=== PATIENT | female | born 1935 | race Caucasian/White ===

== ENCOUNTER 2018-09-25 12:24 | Inpatient (IN) | payer MEDICARE ==
[~2018-09-25] VITALS: Ht 147.3 cm; Wt 73.1 kg
[2018-09-25 13:13] LABS: BASO % 1 % (0-3); EOS # 0.2 x10^3/uL (0.0-0.7); EOS % 3 % (0-3); HEMATOCRIT 47.8 % (36.0-47.0); HEMOGLOBIN 15.7 g/dL (12.0-15.5); LYMPH # 1.2 x10^3/uL (1.0-4.8); LYMPH % 18 % (24-48); MEAN CORPUSCULAR HEMOGLOBIN 29 pg (25-35); MEAN CORPUSCULAR HGB CONC 33 g/dL (31-37); MEAN CORPUSCULAR VOLUME 89 fL (79-100); MONO % 14 % (0-9); NEUT # 4.6 x10^3uL (1.8-7.7); NEUT % 66 % (31-73); PLATELET COUNT 243 x10^3/uL (140-400); RED BLOOD COUNT 5.38 x10^6/uL (3.50-5.40); RED CELL DISTRIBUTION WIDTH 16.4 % (11.5-14.5)
[2018-09-25 13:15] LABS: ALBUMIN/GLOBULIN RATIO 0.8 (1.0-1.7); CALCIUM 8.9 mg/dL (8.5-10.1); CREATININE 0.9 mg/dL (0.6-1.0); GFR 59.8; MAGNESIUM 2.1 mg/dL (1.8-2.4); TOTAL BILIRUBIN 0.6 mg/dL (0.2-1.0); TOTAL PROTEIN 6.8 g/dL (6.4-8.2)
[2018-09-25 14:18] LABS: BACTERIA,URINE FEW /HPF (0-FEW); BILIRUBIN,URINE NEG (NEG); CLARITY,URINE HAZY; COLOR,URINE YELLOW; GLUCOSE,URINE NEG (NEG); NITRITE,URINE NEG (NEG); SQUAMOUS EPITHELIAL CELL,UR OCC /LPF; UROBILINOGEN,URINE 0.2 mg/dL (0.2 mg/dL)
--- NOTE | 2018-09-25 14:28 | PHYS DOC ---
Past History Past Medical History: Arthritis, Depression, Hypothyroid Past Surgical History: No Surgical History Alcohol Use: None Drug Use: None Adult General Chief Complaint Chief Complaint: PSYCH EVALUATION [facility] HPI Patient is a 82 year old female resident of [facility] brought in by EMS for medical clearance for psychiatric admission. [facility] reported patient had aggressive behavior. Patient is alert and oriented and denied any problem. Review of Systems Review of Systems Constitutional: Denies fever or chills [] Eyes: Denies change in visual acuity, redness, or eye pain [] HENT: Denies nasal congestion or sore throat [] Respiratory: Denies cough or shortness of breath [] Cardiovascular: No additional information not addressed in HPI [] GI: Denies abdominal pain, nausea, vomiting, bloody stools or diarrhea [] : Denies dysuria or hematuria [] Musculoskeletal: Denies back pain or joint pain [] Integument: Denies rash or skin lesions [] Neurologic: Denies headache, focal weakness or sensory changes [] Endocrine: Denies polyuria or polydipsia [] All other systems were reviewed and found to be within normal limits, except as documented in this note. Allergies Allergies Allergies Coded Allergies Type Severity Reaction Last Updated Verified Sulfa (Sulfonamide Antibiotics) Allergy Intermediate 09/25/18 Yes shrimp Allergy Intermediate 09/25/18 Yes tetanus toxoid, adsorbed Allergy Intermediate 09/25/18 Yes Physical Exam Physical Exam Constitutional: Well developed, well nourished, no acute distress, non-toxic appearance. [] HENT: Normocephalic, atraumatic Eyes: PERRLA, EOMI, conjunctiva normal, no discharge. [] Neck: Normal range of motion, no tenderness, supple, no stridor. [] Cardiovascular:Heart rate regular rhythm, no murmur [] Lungs & Thorax: Bilateral breath sounds clear to auscultation [] Abdomen: Bowel sounds normal, soft, no tenderness, no masses, no pulsatile masses. [] Skin: Warm, dry, no erythema, no rash. [] Back: No tenderness, no CVA tenderness. [] Extremities: No tenderness, no cyanosis, no clubbing, ROM intact, no edema. [] Neurologic: Alert and oriented X 3, normal motor function, normal sensory function, no focal deficits noted. [] Psychologic: Affect normal, judgement normal, mood normal. [] Current Patient Data Vital Signs Vital Signs Date Time Temp Pulse Resp B/P (MAP) Pulse Ox O2 Delivery O2 Flow Rate FiO2 09/25/18 12:47 97.8 77 22 96 Room Air Lab Results Laboratory Tests Test 09/25/18 12:48 09/25/18 13:50 White Blood Count 7.0 x10^3/uL (4.0-11.0) Red Blood Count 5.38 x10^6/uL (3.50-5.40) Hemoglobin 15.7 g/dL (12.0-15.5) H Hematocrit 47.8 % (36.0-47.0) H Mean Corpuscular Volume 89 fL (79-100) Mean Corpuscular Hemoglobin 29 pg (25-35) Mean Corpuscular Hemoglobin Concent 33 g/dL (31-37) Red Cell Distribution Width 16.4 % (11.5-14.5) H Platelet Count 243 x10^3/uL (140-400) Neutrophils (%) (Auto) 66 % (31-73) Lymphocytes (%) (Auto) 18 % (24-48) L Monocytes (%) (Auto) 14 % (0-9) H Eosinophils (%) (Auto) 3 % (0-3) Basophils (%) (Auto) 1 % (0-3) Neutrophils # (Auto) 4.6 x10^3uL (1.8-7.7) Lymphocytes # (Auto) 1.2 x10^3/uL (1.0-4.8) Monocytes # (Auto) 1.0 x10^3/uL (0.0-1.1) Eosinophils # (Auto) 0.2 x10^3/uL (0.0-0.7) Basophils # (Auto) 0.0 x10^3/uL (0.0-0.2) Sodium Level 142 mmol/L (136-145) Potassium Level 4.0 mmol/L (3.5-5.1) Chloride Level 103 mmol/L (98-107) Carbon Dioxide Level 29 mmol/L (21-32) Anion Gap 10 (6-14) Blood Urea Nitrogen 16 mg/dL (7-20) Creatinine 0.9 mg/dL (0.6-1.0) Estimated GFR (Cockcroft-Gault) 59.8 BUN/Creatinine Ratio 18 (6-20) Glucose Level 98 mg/dL (70-99) Calcium Level 8.9 mg/dL (8.5-10.1) Magnesium Level 2.1 mg/dL (1.8-2.4) Total Bilirubin 0.6 mg/dL (0.2-1.0) Aspartate Amino Transferase (AST) 18 U/L (15-37) Alanine Aminotransferase (ALT) 18 U/L (14-59) Alkaline Phosphatase 79 U/L (46-116) Total Protein 6.8 g/dL (6.4-8.2) Albumin 3.0 g/dL (3.4-5.0) L Albumin/Globulin Ratio 0.8 (1.0-1.7) L Urine Collection Type U cath Urine Color Yellow Urine Clarity Hazy Urine pH 7.5 Urine Specific [place] 1.010 Urine Protein Neg (NEG-TRACE) Urine Glucose (UA) Neg mg/dL (NEG) Urine Ketones (Stick) Neg mg/dL (NEG) Urine Blood Large (NEG) Urine Nitrite Neg (NEG) Urine Bilirubin Neg (NEG) Urine Urobilinogen Dipstick 0.2 mg/dL (0.2 mg/dL) Urine Leukocyte Esterase Trace (NEG) Urine RBC 11-20 /HPF (0-2) Urine WBC 1-4 /HPF (0-4) Urine Squamous Epithelial Cells Occ /LPF Urine Transitional Epithelial Cells Occ /LPF Urine Bacteria Few /HPF (0-FEW) Urine Mucus Slight /LPF EKG EKG EKG interpreted by me. EKG at 1238 showed normal sinus rhythm at rate of 73, normal interval and axis, poor R-wave progress in anteroseptal leads, no acute ST and T-wave abnormalities. Radiology/Procedures Radiology/Procedures [] Course & Med Decision Making Course & Med Decision Making Pertinent Labs reviewed. (See chart for details) Evaluation of patient in ER showed 81-year-old female patient brought in for medical clearance for psychiatric admission. Patient was alert and oriented and calm and cooperative while she was in ER. Patient was medically cleared for admission to Senior behavioral unit. Dragon Disclaimer Dragon Disclaimer This electronic medical record was generated, in whole or in part, using a voice recognition dictation system. Departure Departure: Impression: Primary Impression: Medical clearance for psychiatric admission Disposition: ADMITTED INPATIENT (to senior behavioral unit at 1427) Condition: STABLE Referrals: JIGAR FATIMA (PCP) JARAD PAYNE MD Sep 25, 2018 14:28
[2018-09-25 15:49] VITALS: BP 183/91
--- NOTE | 2018-09-25 16:04 | EKG ---
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
[2018-09-25] MEDS ORDERED: METHYL SALICYLATE/MENTHOL TOPICAL OINTMENT 29GM TUBE. TP PRN (16:15)
[2018-09-25] MEDS ORDERED: ACETAMINOPHEN 325 MG TABLET PO PRN (16:15)
[2018-09-25] MEDS ORDERED: MAGNESIUM HYDROXIDE 2,400 MG/30 ML ORAL.SUSP. PO PRN (16:15)
[2018-09-25] MEDS ORDERED: MAG HYDROX/AL HYDROX/SIMETH 30 ML ORAL.SUSP PO PRN (16:15)
[2018-09-25 17:24] LABS: VAL ACID 35 mcg/mL (50-100)
[2018-09-25] MEDS ORDERED: DICL100G18 TP (22:21)
[2018-09-25] MEDS ORDERED: OXYB10TA7 PO (22:21)
[2018-09-25] MEDS ORDERED: DOCU-109 PO (22:21)
[2018-09-25] MEDS ORDERED: ATOR20TA58 PO (22:21)
[2018-09-25] MEDS ORDERED: LOPE2CAP PO (22:21)
[2018-09-25] MEDS ORDERED: GUAI600T47 PO (22:21)
[2018-09-25] MEDS ORDERED: SODI500S4 PO (22:21)
[2018-09-25] MEDS ORDERED: CHOL500016 PO (22:21)
[2018-09-25] MEDS ORDERED: ACET325T9 PO (22:21)
[2018-09-25] MEDS ORDERED: ONDA4TAB12 PO (22:21)
[2018-09-25] MEDS ORDERED: TRAM50TA PO (22:21)
[2018-09-25] MEDS ORDERED: DIVA500T4 PO (22:21)
[2018-09-25] MEDS ORDERED: ALBU2.5V8 IH ×2 (22:21)
[2018-09-25] MEDS ORDERED: DEXT20TA2 PO (22:21)
[2018-09-25] MEDS ORDERED: LEVO100T5 PO (22:21)
[2018-09-25] MEDS ORDERED: VENL75CA6 PO (22:21)
[2018-09-25] MEDS ORDERED: VENL150C6 PO (22:21)
[2018-09-25] MEDS ORDERED: CYCL1DRO EACHEYE (22:21)
[2018-09-25] MEDS ORDERED: ASPI-630 PO (22:21)
[2018-09-25] MEDS ORDERED: NITR0.4T SL (22:21)
[2018-09-25] MEDS ORDERED: PANT20TA58 PO (22:21)
[2018-09-25] MEDS ORDERED: MULT-503 PO (22:21)
[2018-09-25] MEDS ORDERED: ZINC57OI TP (22:21)
[2018-09-25] MEDS ORDERED: CETI10TA16 PO (22:21)
[2018-09-25] MEDS ORDERED: ALBUTEROL SULFATE 8GM INHALER. IH PRN (22:30)
[2018-09-25] MEDS ORDERED: NITROGLYCERIN SUBLINGUAL 0.4 MG BOTTLE OF 25. SL PRN (22:30)
--- NOTE | 2018-09-25 22:40 | PDOC ---
Exam Note: Lm Note: Please also refer to the separate dictated note~for this date of service dictated separately. Discussed the patient with Nursing staff reviewed the chart.~Reviewed interim history and current functioning. Reviewed vital signs,~ Labs/ Radiology~and current medications noted below. Continue current treatment with the changes noted in the dictated addendum note Assessment: Vital Signs: Vital Signs Date Time Temp Pulse Resp B/P (MAP) Pulse Ox O2 Delivery O2 Flow Rate FiO2 09/25/18 15:49 97.4 75 20 183/91 (121) 94 Room Air Labs: Laboratory Tests Test 09/25/18 12:40 09/25/18 12:48 09/25/18 13:50 Valproic Acid Level 35 mcg/mL (50-100) L Valproic Acid Last Dose Date 09/24/18 Valproic Acid Last Dose Time 1800 White Blood Count 7.0 x10^3/uL (4.0-11.0) Red Blood Count 5.38 x10^6/uL (3.50-5.40) Hemoglobin 15.7 g/dL (12.0-15.5) H Hematocrit 47.8 % (36.0-47.0) H Mean Corpuscular Volume 89 fL (79-100) Mean Corpuscular Hemoglobin 29 pg (25-35) Mean Corpuscular Hemoglobin Concent 33 g/dL (31-37) Red Cell Distribution Width 16.4 % (11.5-14.5) H Platelet Count 243 x10^3/uL (140-400) Neutrophils (%) (Auto) 66 % (31-73) Lymphocytes (%) (Auto) 18 % (24-48) L Monocytes (%) (Auto) 14 % (0-9) H Eosinophils (%) (Auto) 3 % (0-3) Basophils (%) (Auto) 1 % (0-3) Neutrophils # (Auto) 4.6 x10^3uL (1.8-7.7) Lymphocytes # (Auto) 1.2 x10^3/uL (1.0-4.8) Monocytes # (Auto) 1.0 x10^3/uL (0.0-1.1) Eosinophils # (Auto) 0.2 x10^3/uL (0.0-0.7) Basophils # (Auto) 0.0 x10^3/uL (0.0-0.2) Sodium Level 142 mmol/L (136-145) Potassium Level 4.0 mmol/L (3.5-5.1) Chloride Level 103 mmol/L (98-107) Carbon Dioxide Level 29 mmol/L (21-32) Anion Gap 10 (6-14) Blood Urea Nitrogen 16 mg/dL (7-20) Creatinine 0.9 mg/dL (0.6-1.0) Estimated GFR (Cockcroft-Gault) 59.8 BUN/Creatinine Ratio 18 (6-20) Glucose Level 98 mg/dL (70-99) Calcium Level 8.9 mg/dL (8.5-10.1) Magnesium Level 2.1 mg/dL (1.8-2.4) Total Bilirubin 0.6 mg/dL (0.2-1.0) Aspartate Amino Transferase (AST) 18 U/L (15-37) Alanine Aminotransferase (ALT) 18 U/L (14-59) Alkaline Phosphatase 79 U/L (46-116) Total Protein 6.8 g/dL (6.4-8.2) Albumin 3.0 g/dL (3.4-5.0) L Albumin/Globulin Ratio 0.8 (1.0-1.7) L Urine Collection Type U cath Urine Color Yellow Urine Clarity Hazy Urine pH 7.5 Urine Specific [place] 1.010 Urine Protein Neg (NEG-TRACE) Urine Glucose (UA) Neg mg/dL (NEG) Urine Ketones (Stick) Neg mg/dL (NEG) Urine Blood Large (NEG) Urine Nitrite Neg (NEG) Urine Bilirubin Neg (NEG) Urine Urobilinogen Dipstick 0.2 mg/dL (0.2 mg/dL) Urine Leukocyte Esterase Trace (NEG) Urine RBC 11-20 /HPF (0-2) Urine WBC 1-4 /HPF (0-4) Urine Squamous Epithelial Cells Occ /LPF Urine Transitional Epithelial Cells Occ /LPF Urine Bacteria Few /HPF (0-FEW) Urine Mucus Slight /LPF Current Medications: Meds: Current Medications Acetaminophen (Tylenol) 650 mg PRN Q6HRS PRN PO PAIN / TEMP; Start 09/25/18 at 16:15 Multi-Ingredient Ointment (Analgesic [place]) 1 mike PRN QID PRN TP MUSCLE PAIN; Start 09/25/18 at 16:15 Al Hydroxide/Mg Hydroxide (Mylanta Plus Xs) 15 ml PRN AFTMEALHC PRN PO DYSPEPSIA; Start 09/25/18 at 16:15 Magnesium Hydroxide (Milk Of Magnesia) 2,400 mg PRN QHS PRN PO CONSTIPATION; Start 09/25/18 at 16:15 Albuterol Sulfate (Ventolin Hfa Inhaler) 2 puff BID IH ; Start 09/26/18 at 09:00 ; Status UNV Albuterol Sulfate (Ventolin Hfa Inhaler) 2 puff PRN Q4HRS PRN IH FOR ASTHMA; Start 09/25/18 at 22:30; Status UNV Atorvastatin Calcium (Lipitor) 20 mg QHS PO ; Start 09/26/18 at 21:00; Status UNV Cyclosporine (Restasis) 1 drop BID OU ; Start 09/26/18 at 09:00; Status UNV Diclofenac Sodium (Voltaren) 1 mike TID TP ; Start 09/26/18 at 09:00; Status UNV Guaifenesin (Mucinex Er) 600 mg PRN BID PRN PO COUGH; Start 09/25/18 at 22:30; Status UNV Levothyroxine Sodium (Synthroid) 100 mcg DAILYAC PO ; Start 09/26/18 at 07:30; Status UNV Nitroglycerin (Nitrostat) 0.4 mg PRN Q5MIN PRN SL CHEST PAIN; Start 09/25/18 at 22:30; Status UNV Tramadol HCl (Ultram) 50 mg PRN Q6HRS PRN PO PAIN; Start 09/25/18 at 22:30; Status UNV Non-Formulary Medication (Aspirin ) 81 mg DAILY PO ; Start 09/26/18 at 09:00; Status UNV Non-Formulary Medication (Cetirizine Hcl ) 5 mg HS PO ; Start 09/26/18 at 21:00 ; Status UNV Non-Formulary Medication (Cholecalciferol (Vitamin D3) (Vitamin D3)) 5,000 unit DAILY PO ; Start 09/26/18 at 09:00; Status UNV Non-Formulary Medication (Docusate Sodium (Colace)) 100 mg PRN DAILY PRN PO CONSTIPATION; Start 09/25/18 at 22:30; Status UNV Non-Formulary Medication (Loperamide Hcl (Loperamide)) 2 mg PRN QID PRN PO DIARRHEA; Start 09/25/18 at 22:30; Status UNV Non-Formulary Medication (Multivits,Th W-Fe,Other Min (Thera-M)) 1 tab DAILY PO ; Start 09/26/18 at 09:00; Status UNV Non-Formulary Medication (Ondansetron (Ondansetron Odt)) 4 mg PRN Q6HRS PRN PO NAUSEA/VOMITING; Start 09/25/18 at 22:30; Status UNV Non-Formulary Medication (Oxybutynin Chloride (Ditropan Xl)) 10 mg DAILY PO ; Start 09/26/18 at 09:00; Status UNV Non-Formulary Medication (Pantoprazole Sodium (Protonix)) 20 mg DAILY PO ; Start 09/26/18 at 09:00; Status UNV Non-Formulary Medication (Zinc Oxide ) 1 mike PRN BID PRN TP RASH; Start at 22:30; Status UNV Non-Formulary Medication (Dextroamphetamine/ Amphetamine (Adderall 20 Mg Tablet) ) 20 mg TID PO ; Start 09/26/18 at 09:00; Status UNV Non-Formulary Medication (Divalproex Sodium (Depakote Er)) 500 mg DAILYWSUP PO ; Start 09/26/18 at 17:00; Status UNV Non-Formulary Medication (Sodium Oxybate (Xyrem)) 7 ml HS PO ; Start 09/26/18 at 21:00; Status UNV Non-Formulary Medication (Venlafaxine Hcl (Venlafaxine Hcl Er)) 75 mg DAILY PO ; Start 09/26/18 at 09:00; Status UNV Non-Formulary Medication (Venlafaxine Hcl (Venlafaxine Hcl Er)) 150 mg DAILY PO ; Start 09/26/18 at 09:00; Status UNV Active Scripts Active Reported Tylenol (Acetaminophen) 325 Mg Tablet 650 Mg PO PRN Q4HRS PRN Loperamide (Loperamide Hcl) 2 Mg Capsule 2 Mg PO PRN QID PRN Colace (Docusate Sodium) 100 Mg Capsule 100 Mg PO PRN DAILY PRN Xyrem (Sodium Oxybate) 500 Mg/1 Ml Solution 7 Ml PO HS Vitamin D3 (Cholecalciferol (Vitamin D3)) 5,000 Unit Tablet 5,000 Unit PO DAILY Ventolin Hfa Inhaler (Albuterol Sulfate) 18 Gm Hfa.aer.ad 2 Puff IH BID Venlafaxine Hcl Er (Venlafaxine Hcl) 75 Mg Cap.er.24h 75 Mg PO DAILY Venlafaxine Hcl Er (Venlafaxine Hcl) 150 Mg Cap.er.24h 150 Mg PO DAILY Thera-M (Multivits, W-,Other Min) 1 Each Tablet 1 Tab PO DAILY Restasis (Cyclosporine) 1 Each Droperette 1 Drop EACHEYE BID Protonix (Pantoprazole Sodium) 20 Mg Tablet.dr 20 Mg PO DAILY Ditropan Xl (Oxybutynin Chloride) 10 Mg Tab.er.24 10 Mg PO DAILY Levothyroxine Sodium 100 Mcg Tablet 100 Mcg PO DAILYAC Cetirizine Hcl 10 Mg Tablet 5 Mg PO HS Atorvastatin Calcium 20 Mg Tablet 20 Mg PO QHS Aspirin 81 Mg Tab.chew 81 Mg PO DAILY Adderall 20 Mg Tablet (Dextroamphetamine/Amphetamine) 20 Mg Tablet 20 Mg PO TID Depakote Er (Divalproex Sodium) 500 Mg Tab.er.24h 500 Mg PO DAILYWSUP Zinc Oxide 57 Gm Oint...g. 1 Mike TP PRN BID PRN Voltaren (Diclofenac Sodium) 100 Gm Gel..gram. 1 Gm TD TID Ventolin Hfa Inhaler (Albuterol Sulfate) 18 Gm Hfa.aer.ad 2 Puff IH PRN Q4HRS PRN Tramadol Hcl (Tramadol HCl) 50 Mg Tablet 50 Mg PO PRN Q6HRS PRN Ondansetron Odt (Ondansetron) 4 Mg Tab.rapdis 4 Mg PO PRN Q6HRS PRN Nitrostat (Nitroglycerin) 0.4 Mg Tab.subl 0.4 Mg SL PRN Q5MIN PRN Mucinex (Guaifenesin) 600 Mg Tablet.er 600 Mg PO PRN BID PRN I have reviewed the current psychotropics carefully including drug interactions. Risk benefit ratio favors no change other than as noted in my dictated progress note. Diagnosis: Problems: (1) Medical clearance for psychiatric admission (2) Anxiety disorder (3) Impulse control disorder (4) Major depressive disorder, recurrent episode ANABELL MCDONALD MD Sep 25, 2018 22:40
[2018-09-25] MEDS ORDERED: DOCUSATE SODIUM 100 MG CAPSULE PO PRN (22:45)
[2018-09-25] MEDS ORDERED: LOPERAMIDE 2 MG CAPSULE PO PRN (22:45)
[2018-09-25] MEDS ORDERED: ONDANSETRON ODT 4 MG TAB.RAPDIS PO PRN (22:45)
[2018-09-25] MEDS ORDERED: ALBUTEROL SULFATE 2.5 MG/3 ML NEBU. NEB PRN (23:00)
[2018-09-25] MEDS ORDERED: ZINC OXIDE 20% TOPICAL OINTMENT 28GM TUBE. TP PRN (23:00)
[2018-09-26 02:27] LABS: THYROXINE 9.4 ug/dL (4.5-12.0)
[2018-09-26] MEDS: traMADol 50 MG TABLET PO PRN (03:20)
[2018-09-26 04:09] LABS: HEMOGLOBIN A1C 5.5 % (4.8-5.6)
[2018-09-26 05:58] VITALS: BP 149/88
[2018-09-26] MEDS: NON FORMULARY ITEM (Dextroamphetamine/Amphetamine (Adderall 20 Mg Tablet) 20 MG) PO SCH ×3 (09:00→21:00)
[2018-09-26] MEDS ORDERED: ALBUTEROL SULFATE 8GM INHALER. IH SCH (09:00)
[2018-09-26] MEDS: CHOLECALCIFEROL (VITAMIN D3) 1,000 UNIT TABLET PO SCH (09:03)
[2018-09-26] MEDS: OXYBUTYNIN CHLORIDE 5 MG TABLET PO SCH ×2 (09:03→20:10)
[2018-09-26] MEDS: MULTIVITAMIN with MINERAL TABLET. PO SCH (09:03)
[2018-09-26] MEDS: VENLAFAXINE XR 37.5 MG CAP.ER.24H. PO SCH ×2 (09:03→09:55)
[2018-09-26] MEDS: PANTOPRAZOLE 40 MG TABLET. PO SCH (09:03)
[2018-09-26] MEDS: LEVOTHYROXINE 100 MCG TABLET PO SCH (09:04)
[2018-09-26] MEDS: cycloSPORINE 0.05% OPTH 1 DROP DROPERETTE OU SCH ×2 (09:04→20:10)
[2018-09-26] MEDS: ASPIRIN 81 MG TAB.CHEW PO SCH (09:04)
--- NOTE | 2018-09-26 09:21 | HP ---
ADMIT DATE: 09/25/2018 The patient was seen individually evening of 09/25/2018 for this evaluation. IDENTIFYING DATA: The patient is an 82-year-old female who is referred to us from the [facility] by her primary care physician, Dr. Ha and psychiatric nurse practitioner, Rl May, on account of having active hallucinations, being delusional. Reportedly, the patient has been having voices that are telling her to harm herself. She has been paranoid, withdrawn, lashes out at staff members. She has appeared depressed with some short-term memory deficits. She has failed psychiatric interventions, referred for inpatient psychiatric stabilization due to dangerous behaviors. The patient was seen individually evening of 09/25/2018. Discussed with nursing staff several times during the day and with Mila Pendleton, intake coordinate to gather historical information for justification for inpatient hospitalization. CHIEF COMPLAINT: "I've narcolepsy and cataplexy. Yes, I've been depressed. I've had the voices. I get angry." HISTORY OF PRESENT ILLNESS: As noted, the patient has had increasing symptoms of depression, irritability, mood lability, psychotic symptoms, some of which could be contributed by her narcolepsy/cataplexy. She does have a history of mood swings, but it is unclear whether she has a prior diagnosis of bipolar disorder. She denies active suicidal ideation as I met with her evening of 09/25/2018, but admitted to the suicidal ideation as noted above. She has been reasonably cognitively intact, but does have short term memory deficits. PAST PSYCHIATRIC HISTORY: As above. MEDICAL HISTORY: Positive for narcolepsy, cataplexy, hypothyroidism, osteoarthritis, osteoporosis, hyperlipidemia, hypertension, vitamin D deficiency, possible CVA. ACCU-CHEKS: None. DIET: Regular. Takes medications whole, ambulates in wheelchair. UA has reflex to culture. CODE STATUS: DNR. CURRENT PSYCHOTROPICS: Depakote 500 mg at 1700 hours, Effexor ER 225 mg daily, Adderall 20 mg t.i.d. for narcolepsy, Xyrem at bedtime, tramadol for foot pain. ALLERGIES: SULFA, TETANUS, SHRIMP. FAMILY HISTORY: Noncontributory. SOCIAL HISTORY: No alcohol, drug abuse, physical, sexual or elder abuse history is noted. Not known to be a perpetrator. REACTION TO HOSPITALIZATION: The patient accepting of it. ASSETS: Supportive family, stable living at the above facility. REVIEW OF SYSTEMS: Ambulation impaired, in wheelchair. No CV, , pulmonary, eye, ENT system symptoms on review. MENTAL STATUS EXAMINATION: Oriented to herself, situation. She was aware of the year and the month, unsure about the date. Mood appears somewhat depressed, anxious. Affect is mood congruent. She was somewhat paranoid, suspicious. No active suicidal or homicidal ideation. Attention span short. Language function intact. Intellect average. Insight fair. Judgment intact to standard questioning. IMPRESSION: Major depressive disorder, recurrent with psychotic features, rule out bipolar 1 disorder, depressed with psychotic features; anxiety disorder, unspecified; cognitive disorder, unspecified. Rest as above. PLAN: Admit to geropsychiatry unit at [facility]. I will see the patient daily individually from a psychiatric standpoint, medical followup with Dr. Castillo/Dr. Justice. Continue current psychotropics, observe baseline. May consider Neurology consult with Dr. Campos. Estimated length of stay is 10-12 days. DISPOSITION: Back to go [facility]. MAN Bridger MCDONALD MD DR: MANNIE/kamini JOB#: [id number] / [id number]
[2018-09-26] MEDS: DICLOFENAC SODIUM 1% TOPICAL GEL 100GM TUBE. TP SCH ×3 (09:55→20:11)
[2018-09-26] MEDS: ALBUTEROL SULFATE 2.5 MG/3 ML NEBU. NEB SCH ×2 (11:21→20:43)
[2018-09-26 13:25] LABS: THYROID STIM HORMONE (TSH) 0.117 uIU/mL (0.358-3.740)
[2018-09-26 16:27] VITALS: BP 134/82
[2018-09-26] MEDS: DIVALPROEX ER 500 MG TAB.ER.24H PO SCH (17:57)
[2018-09-26] MEDS: CETIRIZINE HCL 10 MG TABLET PO SCH (20:10)
[2018-09-26] MEDS: SODIUM OXYBATE PO SCH (20:10)
[2018-09-26] MEDS: ATORVASTATIN CALCIUM 20 MG TABLET PO SCH (20:10)
--- NOTE | 2018-09-26 22:23 | PDOC ---
Exam Note: Lm Note: Please also refer to the separate dictated note~for this date of service dictated separately.~Patient seen individually. Discussed the patient with Nursing staff reviewed the chart.~Reviewed interim history and current functioning. Reviewed vital signs,~Labs/ Radiology~and current medications noted below. Continue current treatment with the changes noted in the dictated addendum note Assessment: Vital Signs: Vital Signs Date Time Temp Pulse Resp B/P (MAP) Pulse Ox O2 Delivery O2 Flow Rate FiO2 09/26/18 20:46 98 Room Air 09/26/18 16:27 98.6 68 16 134/82 (99) I&O Intake and Output 09/26/18 07:00 Intake Total 240 ml Balance 240 ml Intake Oral 240 ml Current Medications: Meds: Current Medications Acetaminophen (Tylenol) 650 mg PRN Q6HRS PRN PO PAIN / TEMP; Start 09/25/18 at 16:15 Multi-Ingredient Ointment (Analgesic [place]) 1 mike PRN QID PRN TP MUSCLE PAIN; Start 09/25/18 at 16:15 Al Hydroxide/Mg Hydroxide (Mylanta Plus Xs) 15 ml PRN AFTMEALHC PRN PO DYSPEPSIA; Start 09/25/18 at 16:15 Magnesium Hydroxide (Milk Of Magnesia) 2,400 mg PRN QHS PRN PO CONSTIPATION; Start 09/25/18 at 16:15 Albuterol Sulfate (Ventolin Hfa Inhaler) 2 puff BID IH ; Start 09/26/18 at 09:00 ; Stop 09/26/18 at 09:00; Status DC Albuterol Sulfate (Ventolin Hfa Inhaler) 2 puff PRN Q4HRS PRN IH FOR ASTHMA; Start 09/25/18 at 22:30; Stop 09/25/18 at 22:57; Status DC Atorvastatin Calcium (Lipitor) 20 mg QHS PO Last administered on 09/26/18at 20: 10; Start 09/26/18 at 21:00 Cyclosporine (Restasis) 1 drop BID OU Last administered on 09/26/18at 20:10; Start 09/26/18 at 09:00 Diclofenac Sodium (Voltaren) 1 mike TID TP Last administered on 09/26/18at 20:11 ; Start 09/26/18 at 09:00 Guaifenesin (Mucinex Er) 600 mg PRN BID PRN PO COUGH; Start 09/25/18 at 22:30 Levothyroxine Sodium (Synthroid) 100 mcg DAILYAC PO Last administered on at 09:04; Start 09/26/18 at 07:30 Nitroglycerin (Nitrostat) 0.4 mg PRN Q5MIN PRN SL CHEST PAIN; Start 09/25/18 at 22:30 Tramadol HCl (Ultram) 50 mg PRN Q6HRS PRN PO PAIN Last administered on 03:20; Start 09/25/18 at 22:30 Aspirin (Children'S Aspirin) 81 mg DAILYWBKFT PO Last administered on 09:04; Start 09/26/18 at 08:00 Cetirizine HCl (ZyrTEC) 5 mg QHS PO Last administered on 09/26/18 20:10; Start 09/26/18 at 21:00 Vitamin D (Vitamin D3) 5,000 unit DAILY PO Last administered on 09/26/18at 09:03 ; Start 09/26/18 at 09:00 Docusate Sodium (Colace) 100 mg PRN DAILY PRN PO CONSTIPATION; Start 09/25/18 at 22:45 Loperamide HCl (Imodium) 2 mg PRN QID PRN PO DIARRHEA; Start 09/25/18 at 22:45 Multivitamins/ Calcium (Thera-M Plus) 1 tab DAILY PO Last administered on 09:03; Start 09/26/18 at 09:00 Ondansetron HCl (Zofran Odt) 4 mg PRN Q6HRS PRN PO NAUSEA/VOMITING; Start 09/25 at 22:45 Oxybutynin Chloride (Ditropan) 5 mg BID PO Last administered on 09/26/18 20:10 ; Start 09/26/18 at 09:00 Pantoprazole Sodium (Protonix) 40 mg DAILYAC PO Last administered on 09/26/18at 09:03; Start 09/26/18 at 07:30 Zinc Oxide (Zinc Oxide 20% Topical) 1 mike PRN BID PRN TP DRY SKIN / SCALING Last administered on 09/26/18at 20:10; Start 09/25/18 at 23:00 Non-Formulary Medication (Dextroamphetamine/ Amphetamine (Adderall 20 Mg Tablet) ) 20 mg TID PO ; Start 09/26/18 at 09:00; Status UNV Divalproex Sodium (Depakote Er) 500 mg DAILYWSUP PO Last administered on at 17:57; Start 09/26/18 at 17:00 Non-Formulary Medication (Sodium Oxybate (Xyrem)) 7 ml HS PO Last administered on 09/26/18at 20:10; Start 09/26/18 at 21:00 Venlafaxine HCl (Effexor Xr) 75 mg DAILY PO Last administered on 09/26/18at 09: 03; Start 09/26/18 at 09:00 Venlafaxine HCl (Effexor Xr) 150 mg DAILY PO Last administered on 09/26/18at 09: 55; Start 09/26/18 at 09:00 Albuterol Sulfate (Ventolin) 2.5 mg RTBID NEB Last administered on 09/26/18at 20 :43; Start 09/26/18 at 08:00 Albuterol Sulfate (Ventolin) 2.5 mg PRN Q4HRS PRN NEB SHORTNESS OF BREATH; Start 09/25/18 at 23:00 Active Scripts Active Reported Tylenol (Acetaminophen) 325 Mg Tablet 650 Mg PO PRN Q4HRS PRN Loperamide (Loperamide Hcl) 2 Mg Capsule 2 Mg PO PRN QID PRN Colace (Docusate Sodium) 100 Mg Capsule 100 Mg PO PRN DAILY PRN Xyrem (Sodium Oxybate) 500 Mg/1 Ml Solution 7 Ml PO HS Vitamin D3 (Cholecalciferol (Vitamin D3)) 5,000 Unit Tablet 5,000 Unit PO DAILY Ventolin Hfa Inhaler (Albuterol Sulfate) 18 Gm Hfa.aer.ad 2 Puff IH BID Venlafaxine Hcl Er (Venlafaxine Hcl) 75 Mg Cap.er.24h 75 Mg PO DAILY Venlafaxine Hcl Er (Venlafaxine Hcl) 150 Mg Cap.er.24h 150 Mg PO DAILY Thera-M (Multivits, W-Fe,Other Min) 1 Each Tablet 1 Tab PO DAILY Restasis (Cyclosporine) 1 Each Droperette 1 Drop EACHEYE BID Protonix (Pantoprazole Sodium) 20 Mg Tablet.dr 20 Mg PO DAILY Ditropan Xl (Oxybutynin Chloride) 10 Mg Tab.er.24 10 Mg PO DAILY Levothyroxine Sodium 100 Mcg Tablet 100 Mcg PO DAILYAC Cetirizine Hcl 10 Mg Tablet 5 Mg PO HS Atorvastatin Calcium 20 Mg Tablet 20 Mg PO QHS Aspirin 81 Mg Tab.chew 81 Mg PO DAILY Adderall 20 Mg Tablet (Dextroamphetamine/Amphetamine) 20 Mg Tablet 20 Mg PO TID Depakote Er (Divalproex Sodium) 500 Mg Tab.er.24h 500 Mg PO DAILYWSUP Zinc Oxide 57 Gm Oint...g. 1 Mike TP PRN BID PRN Voltaren (Diclofenac Sodium) 100 Gm Gel..gram. 1 Gm TD TID Ventolin Hfa Inhaler (Albuterol Sulfate) 18 Gm Hfa.aer.ad 2 Puff IH PRN Q4HRS PRN Tramadol Hcl (Tramadol HCl) 50 Mg Tablet 50 Mg PO PRN Q6HRS PRN Ondansetron Odt (Ondansetron) 4 Mg Tab.rapdis 4 Mg PO PRN Q6HRS PRN Nitrostat (Nitroglycerin) 0.4 Mg Tab.subl 0.4 Mg SL PRN Q5MIN PRN Mucinex (Guaifenesin) 600 Mg Tablet.er 600 Mg PO PRN BID PRN I have reviewed the current psychotropics carefully including drug interactions. Risk benefit ratio favors no change other than as noted in my dictated progress note. Diagnosis: Problems: (1) Medical clearance for psychiatric admission (2) Anxiety disorder (3) Impulse control disorder (4) Major depressive disorder, recurrent episode ANABELL MCDONALD MD Sep 26, 2018 22:23
--- NOTE | 2018-09-27 03:34 | CONS ---
DATE OF CONSULTATION: 09/26/2018 REASON FOR CONSULTATION: Medical management. HISTORY OF PRESENT ILLNESS: The patient is an 82-year-old female patient, a resident at [facility], who was referred to this unit by her primary care physician on account of having active hallucinations, being delusional. Reportedly, the patient has been having voices that are telling her to harm herself. She has been paranoid, withdrawn, lashes out at staff members. She has appeared depressed with some short term memory deficit. She apparently has failed psychiatric intervention, referred for inpatient psychiatric stabilization due to dangerous behavior. The patient seemed to be alert, oriented and was answering all questions appropriately until we asked her why she is here and she came clearly very delusional and paranoid. PAST MEDICAL HISTORY: Significant for narcolepsy, cataplexy, hypothyroidism, osteoarthritis, osteoporosis, hyperlipidemia, hypertension, vitamin D deficiency, and possible CVA. PAST SURGICAL HISTORY: Unremarkable. ALLERGIES: She is ALLERGIC TO SULFA, TETANUS VACCINE. FAMILY HISTORY: Noncontributory. SOCIAL HISTORY: She lives at the [facility]. She has 2 sons and 1 daughter. She does not smoke or drink alcohol. 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 MEDICATIONS: She is currently on following medications: Cetirizine 5 mg at bedtime, albuterol sulfate for Ventolin 2 puffs every 4 hours, albuterol sulfate 2 puffs twice a day, atorvastatin calcium 20 mg at bedtime, nitroglycerin 0.4 mg every 5 minutes x 3, aspirin 81 mg once a day, diclofenac sodium for Voltaren 1 gram 3 times a day, tramadol 50 mg q. 6 hourly, acetaminophen 650 mg every 4 hours, divalproex sodium 500 mg daily and venlafaxine 75 mg daily. She is on Adderall 20 mg 3 times a day, sodium acetate 500 mg per 1 mL solution 7 mL p.o. at bedtime. She is on guaifenesin 600 mg extended release twice a day, cyclosporine for Restasis 1 drop to both eyes twice a day, loperamide 2 mg 4 times a day as needed, Colace 100 mg twice a day, ondansetron 4 mg every 6 hours as needed for nausea and vomiting, Protonix 20 mg once a day, levothyroxine sodium 100 mcg once a day, zinc oxide ointment applied topically twice a day. She is also on oxybutynin chloride, Ditropan-XL 10 mg once a day, vitamin D3 5000 units daily, multivitamin 1 tablet once a day. REVIEW OF SYSTEMS: As per history of present illness. PHYSICAL EXAMINATION GENERAL: When I saw her, she was sitting comfortably in her wheelchair, in no apparent distress. She was somewhat pale, but no jaundice, cyanosis, or thyromegaly. No jugular venous distension. No limb edema. VITAL SIGNS: Her heart rate was 68, blood pressure was 134/82, temperature was 98.6, respiratory rate was 16 and oxygen saturation was 100% on room air. HEAD, EYES, EARS, NOSE AND THROAT: Showed normocephalic, atraumatic. NECK: Supple. HEART: Showed normal first and second sounds. No gallop, rub or murmur. CHEST: Clear to auscultation. No crepitation or rhonchi. ABDOMEN: Distended, soft, nontender. NEUROLOGIC: She was awake, alert, responding appropriately. All cranial nerves intact. She moves upper extremities too much extent than lower extremities. She is mostly bedbound, chair bound. She is definitely paranoid and delusional. LABORATORY WORK: Showed a serum sodium of 142, potassium 4, chloride 103, bicarbonate 29, anion gap of 10, BUN 16, creatinine 0.9, estimated GFR was 60 mL per minute. Her glucose was 98. Hemoglobin A1c was 5.5. Calcium was 8.9, magnesium was 2.1. Serum iron was 100, TIBC was 236 and iron saturation was 42. Her total bilirubin 0.6. AST, ALT, alkaline phosphatase were normal. Total protein was 6.8, albumin 3. Her vitamin B12 was 755 pg/mL, 25-hydroxy vitamin D was 80. Her TSH was low at 0.117. However, her total T4 and free T4 are normal. Her white cell count was 7000, hemoglobin 15.7, hematocrit 47.8, MCV 89 and platelet count of 243,000. Urinalysis was unremarkable and showed large amount of blood, 11-20 rbc's, no wbc's, and no bacteria. Her toxic screen was essentially unremarkable and her treponema pallidum antibodies were nonreactive. IMPRESSION: In summary, this is again an 82-year-old female patient, who was basically referred to this unit from [facility] on account of having active hallucinations, being delusional, has been hearing voices that are telling her to harm herself. She has been paranoid, withdrawn, lashes out at staff members and she is here for inpatient psychiatric stabilization. Medically, she has multiple medical problems including hyperlipidemia, hypertension, hypothyroidism, narcolepsy and vitamin D deficiency. I reviewed with all her labs and medications seems all to be appropriate. So, all in all, the patient is medically stable. I will also review all the lab works that are still pending at the time of this dictation and make any necessary recommendation. Thank you, Dr. Chavez for allowing me to participate in the care of this patient. HIREN CAN MD DR: DEL/kamini JOB#: [id number] / [id number]
[2018-09-27] MEDS: traMADol 50 MG TABLET PO PRN (05:08)
[2018-09-27 05:35] VITALS: BP 129/86
[2018-09-27] MEDS: CHOLECALCIFEROL (VITAMIN D3) 1,000 UNIT TABLET PO SCH (07:49)
[2018-09-27] MEDS: VENLAFAXINE XR 37.5 MG CAP.ER.24H. PO SCH ×2 (07:52→07:57)
[2018-09-27] MEDS: MULTIVITAMIN with MINERAL TABLET. PO SCH (07:52)
[2018-09-27] MEDS: LEVOTHYROXINE 100 MCG TABLET PO SCH (07:52)
[2018-09-27] MEDS: PANTOPRAZOLE 40 MG TABLET. PO SCH (07:52)
[2018-09-27] MEDS: OXYBUTYNIN CHLORIDE 5 MG TABLET PO SCH ×2 (07:52→21:03)
[2018-09-27] MEDS: cycloSPORINE 0.05% OPTH 1 DROP DROPERETTE OU SCH ×2 (07:53→21:03)
[2018-09-27] MEDS: ASPIRIN 81 MG TAB.CHEW PO SCH (07:53)
[2018-09-27] MEDS: DICLOFENAC SODIUM 1% TOPICAL GEL 100GM TUBE. TP SCH ×3 (07:55→21:03)
[2018-09-27] MEDS: NON FORMULARY ITEM (Dextroamphetamine/Amphetamine (Adderall 20 Mg Tablet) 20 MG) PO SCH ×3 (09:00→21:00)
[2018-09-27] MEDS: ALBUTEROL SULFATE 2.5 MG/3 ML NEBU. NEB SCH ×2 (10:39→20:27)
[2018-09-27 15:37] VITALS: BP 127/78
[2018-09-27] MEDS: DIVALPROEX ER 500 MG TAB.ER.24H PO SCH (17:40)
--- NOTE | 2018-09-27 20:40 | PN ---
DATE: 09/27/2018 SUBJECTIVE: The patient was seen today, chart reviewed, and also covering for Dr. Chavez. Staff reports no significant change in her behavior. The patient was admitted here because of auditory hallucinations, being paranoid, and also having short-term memory deficits. The patient mainly complains of feeling sad, depressed at times. The patient also is not happy over the place she was staying. The patient also exhibited some paranoid ideation. OBSERVATION: VITAL SIGNS: Temperature 98.1, blood pressure 129/86, pulse 85, respirations 20, O2 sat 95%. GENERAL: Slept about 6 hours last night. The patient is on wheelchair. The patient denies of any falls. The patient since admission has been compliant with medications but tend to withdraw to herself and able to interact with the staff. MEDICATIONS: The patient's medications reviewed, currently on Depakote 500 mg daily, venlafaxine 225 mg daily. LABORATORY DATA: The patient's lab reviewed. The patient's hemoglobin was 15.7. The patient's hemoglobin A1c was 5.5. The patient's TIBC was 236 and saturation 42. The patient still has episodes where she gets very anxious, irritable and lazaro. ASSESSMENT: Major depressive disorder, recurrent with psychotic features, cognitive disorder, unspecified. PLAN: Plan is to continue with the treatment. The patient's medications reviewed. The patient is currently on Adderall 20 mg t.i.d. and suggested is to decrease it to twice a day, but apparently she is taking this for narcolepsy. PAUL MORGAN MD DR: VINCENT/kamini JOB#: [id number] / [id number]
[2018-09-27] MEDS: SODIUM OXYBATE PO SCH (21:00)
[2018-09-27] MEDS: ATORVASTATIN CALCIUM 20 MG TABLET PO SCH (21:03)
[2018-09-27] MEDS: CETIRIZINE HCL 10 MG TABLET PO SCH (21:03)
--- NOTE | 2018-09-27 21:44 | PN ---
DATE: 09/26/2018 This is a late entry for 09/26/2018 covers elements not covered in my initial note. SUBJECTIVE: I met with the patient in the evening. The patient slept 6-1/2 hours previous evening. She remains somewhat withdrawn, depressed, but no behaviors or agitation noted. Valproic acid level is subtherapeutic at 35. REVIEW OF SYSTEMS: Ambulation impaired, in wheelchair. No CV, , pulmonary, eye, ENT system symptoms on review. MENTAL STATUS EXAM: The patient is reasonably oriented. Speech is coherent, has some latency. Abstraction fair, computation impaired, language function intact. Attention span short. During the individual visit, she talked at great length about the [facility] she lives at. She stated the land was a farm land owned by a friend of hers and she sold it to the people who made the [facility] on that land. She states she saw the building coming up and thought to herself that if she ever needed to have a place to live, she would consider that and that is where she ended up. She was quite coherent and all of this as I am aware of the facility and the farm land and the timeline all of which seemed accurate by her description. No active suicidal or homicidal ideation, but she is still depressed though she tends to minimize this. IMPRESSION: Major depressive disorder, narcolepsy with cataplexy. Rest unchanged. PLAN: Even though the Depakote level is subtherapeutic for now, it seems adequate and she is on Adderall and Xyrem for her narcolepsy, Effexor ER 225 mg a day. We may augment this with low dose Abilify, but I will wait a day or so and then decide. BuSpar for anxiety may be another option. Dr. Torres will cover for me for about a week during my vacation. MAN Bridger MCDONALD MD DR: MANNIE/kamini JOB#: [id number] / [id number]
[2018-09-28 05:55] VITALS: BP 155/83
[2018-09-28] MEDS: cycloSPORINE 0.05% OPTH 1 DROP DROPERETTE OU SCH ×2 (07:20→19:34)
[2018-09-28] MEDS: PANTOPRAZOLE 40 MG TABLET. PO SCH (07:20)
[2018-09-28] MEDS: VENLAFAXINE XR 37.5 MG CAP.ER.24H. PO SCH ×2 (07:20→07:27)
[2018-09-28] MEDS: ASPIRIN 81 MG TAB.CHEW PO SCH (07:20)
[2018-09-28] MEDS: OXYBUTYNIN CHLORIDE 5 MG TABLET PO SCH ×2 (07:21→19:34)
[2018-09-28] MEDS: LEVOTHYROXINE 100 MCG TABLET PO SCH (07:21)
[2018-09-28] MEDS: MULTIVITAMIN with MINERAL TABLET. PO SCH (07:21)
[2018-09-28] MEDS: CHOLECALCIFEROL (VITAMIN D3) 1,000 UNIT TABLET PO SCH (07:21)
[2018-09-28] MEDS: DICLOFENAC SODIUM 1% TOPICAL GEL 100GM TUBE. TP SCH ×3 (07:27→19:41)
[2018-09-28] MEDS: NON FORMULARY ITEM (Dextroamphetamine/Amphetamine (Adderall 20 Mg Tablet) 20 MG) PO SCH ×3 (07:31→19:41)
[2018-09-28] MEDS: ALBUTEROL SULFATE 2.5 MG/3 ML NEBU. NEB SCH ×2 (10:22→21:10)
[2018-09-28 16:19] VITALS: BP 144/88
[2018-09-28] MEDS: DIVALPROEX ER 500 MG TAB.ER.24H PO SCH (17:34)
[2018-09-28] MEDS: ATORVASTATIN CALCIUM 20 MG TABLET PO SCH (19:34)
[2018-09-28] MEDS: CETIRIZINE HCL 10 MG TABLET PO SCH (19:34)
[2018-09-28] MEDS: SODIUM OXYBATE PO SCH (19:47)
--- NOTE | 2018-09-28 19:59 | PN ---
DATE: 09/28/2018 SUBJECTIVE: The patient was seen today, met with the staff, chart reviewed. Staff reports no major behavior problems. The patient is still paranoid at times. Significant cognitive deficits. OBSERVATION: VITAL SIGNS: Temperature 98.4, blood pressure 155/83, pulse 65, respiration 18, O2 sat 94%. She slept about 4 hours last night. The patient's lab reviewed. The patient continues to episodes of fall asleep and the patient states this is because she has narcolepsy. The patient states she was also on Ritalin before her, it did not help her. The patient currently not getting any prescriptions here because is not available in the pharmacy. The patient most of the time withdrawn, isolating herself, minimal interaction with the staff. She still looks irritable and lazaro. CURRENT MEDICATIONS: Include Depakote 500 mg daily, venlafaxine 225 mg daily. LABORATORY DATA: The patient's lab reviewed. ASSESSMENT: Major depressive disorder, recurrent with psychotic features, cognitive disorder, unspecified. PLAN: Continue with the current treatment plan. The patient will be started on Ritalin 20 mg b.i.d. a.m. and p.m. PAUL MORGAN MD DR: VINCENT/kamini JOB#: [id number] / [id number]
[2018-09-28] MEDS: traMADol 50 MG TABLET PO PRN (20:58)
[2018-09-29] MEDS ORDERED: DEXT20TA2 PO (01:25)
[2018-09-29] MEDS ORDERED: ACETAMINOPHEN 325 MG TABLET PO PRN (01:30)
[2018-09-29 05:58] VITALS: BP 149/84
[2018-09-29] MEDS ORDERED: NON FORMULARY ITEM (Dextroamphetamine/Amphetamine (Adderall 20 Mg Tablet) 20 MG) PO SCH (09:00)
[2018-09-29] MEDS: OXYBUTYNIN CHLORIDE 5 MG TABLET PO SCH ×2 (09:19→20:11)
[2018-09-29] MEDS: VENLAFAXINE XR 37.5 MG CAP.ER.24H. PO SCH ×2 (09:20)
[2018-09-29] MEDS: LEVOTHYROXINE 100 MCG TABLET PO SCH (09:20)
[2018-09-29] MEDS: CHOLECALCIFEROL (VITAMIN D3) 1,000 UNIT TABLET PO SCH (09:20)
[2018-09-29] MEDS: ASPIRIN 81 MG TAB.CHEW PO SCH (09:21)
[2018-09-29] MEDS: cycloSPORINE 0.05% OPTH 1 DROP DROPERETTE OU SCH ×2 (09:21→20:11)
[2018-09-29] MEDS: MULTIVITAMIN with MINERAL TABLET. PO SCH (09:21)
[2018-09-29] MEDS: PANTOPRAZOLE 40 MG TABLET. PO SCH (09:21)
[2018-09-29] MEDS: METHYLPHENIDATE HCL 5 MG TABLET PO SCH ×2 (09:23→16:22)
[2018-09-29] MEDS: DICLOFENAC SODIUM 1% TOPICAL GEL 100GM TUBE. TP SCH ×3 (09:48→20:12)
[2018-09-29] MEDS: ALBUTEROL SULFATE 2.5 MG/3 ML NEBU. NEB SCH ×2 (10:38→20:00)
[2018-09-29 15:50] VITALS: BP 144/79
[2018-09-29 15:51] VITALS: BP 121/84
[2018-09-29] MEDS: DIVALPROEX ER 500 MG TAB.ER.24H PO SCH (16:23)
[2018-09-29] MEDS: CETIRIZINE HCL 10 MG TABLET PO SCH (20:12)
[2018-09-29] MEDS: ATORVASTATIN CALCIUM 20 MG TABLET PO SCH (20:12)
[2018-09-29] MEDS: SODIUM OXYBATE PO SCH (20:18)
--- NOTE | 2018-09-30 00:07 | PN ---
DATE: 09/29/2018 SUBJECTIVE: The patient was seen today, met with the staff, chart reviewed. The patient continues to be paranoid and suspicious. The patient is not able to hold a conversation. The patient's mental status changes, fluctuates. She tends to fall asleep often because of narcolepsy. The patient was started on Ritalin 20 mg b.i.d., apparently with slight improvement. She was able to be awake today during the daytime and during the assessment. The patient continues to isolate herself, minimal interaction with the staff. Also, she is irritable and lazaro. The patient will continue on her medications including Depakote, venlafaxine and Ritalin. The patient's labs were reviewed. ASSESSMENT: 1. Major depressive disorder, recurrent with psychotic features. 1. Cognitive disorder, unspecified. PLAN: Continue with the treatment. PAUL MORGAN MD DR: VINCENT/kamini JOB#: [id number] / [id number]
[2018-09-30 05:49] VITALS: BP 149/84
[2018-09-30] MEDS: LEVOTHYROXINE 100 MCG TABLET PO SCH (05:58)
[2018-09-30] MEDS: PANTOPRAZOLE 40 MG TABLET. PO SCH (07:42)
[2018-09-30] MEDS: cycloSPORINE 0.05% OPTH 1 DROP DROPERETTE OU SCH ×2 (07:43→21:02)
[2018-09-30] MEDS: OXYBUTYNIN CHLORIDE 5 MG TABLET PO SCH ×2 (07:43→21:02)
[2018-09-30] MEDS: ASPIRIN 81 MG TAB.CHEW PO SCH (07:43)
[2018-09-30] MEDS: VENLAFAXINE XR 37.5 MG CAP.ER.24H. PO SCH ×2 (07:44→07:47)
[2018-09-30] MEDS: METHYLPHENIDATE HCL 5 MG TABLET PO SCH ×2 (07:48→16:15)
[2018-09-30] MEDS: MULTIVITAMIN with MINERAL TABLET. PO SCH (07:49)
[2018-09-30] MEDS: CHOLECALCIFEROL (VITAMIN D3) 1,000 UNIT TABLET PO SCH (07:49)
[2018-09-30] MEDS: DICLOFENAC SODIUM 1% TOPICAL GEL 100GM TUBE. TP SCH ×3 (07:50→21:02)
[2018-09-30] MEDS: ALBUTEROL SULFATE 2.5 MG/3 ML NEBU. NEB SCH ×2 (10:01→21:13)
[2018-09-30] MEDS: DIVALPROEX ER 500 MG TAB.ER.24H PO SCH (16:16)
[2018-09-30 16:21] VITALS: BP 133/84
[2018-09-30] MEDS: SODIUM OXYBATE PO SCH (21:00)
[2018-09-30] MEDS: ATORVASTATIN CALCIUM 20 MG TABLET PO SCH (21:02)
[2018-09-30] MEDS: CETIRIZINE HCL 10 MG TABLET PO SCH (21:02)
[2018-09-30] MEDS: traMADol 50 MG TABLET PO PRN (21:22)
--- NOTE | 2018-09-30 23:42 | PN ---
DATE: 09/30/2018 SUBJECTIVE: The patient was seen today, met with the staff, chart reviewed. The patient's behavior fluctuates, but she is much more alert since has been on the Ritalin and able to interact with the staff, still irritable and lazaro. OBSERVATION: VITAL SIGNS: Temperature 98.4, blood pressure 149/84, pulse 66, respirations 18, O2 sat 94%. Slept about 7 hours last night. The patient has not presented with any major medical issues at this time. The patient did not have any falls. LABORATORY DATA: The patient's lab reviewed. ASSESSMENT: 1. Major depressive disorder, recurrent with psychotic features. 2. Cognitive disorder, unspecified. PLAN: To continue with the treatment. PAUL MORGAN MD DR: VINCENT/kamini JOB#: [id number] / [id number]
[2018-10-01 05:50] VITALS: BP 130/76
[2018-10-01] MEDS: ALBUTEROL SULFATE 2.5 MG/3 ML NEBU. NEB SCH ×2 (08:00→20:54)
[2018-10-01] MEDS: cycloSPORINE 0.05% OPTH 1 DROP DROPERETTE OU SCH ×2 (10:06→19:45)
[2018-10-01] MEDS: PANTOPRAZOLE 40 MG TABLET. PO SCH (10:09)
[2018-10-01] MEDS: VENLAFAXINE XR 37.5 MG CAP.ER.24H. PO SCH ×2 (10:09→10:10)
[2018-10-01] MEDS: CHOLECALCIFEROL (VITAMIN D3) 1,000 UNIT TABLET PO SCH (10:09)
[2018-10-01] MEDS: LEVOTHYROXINE 100 MCG TABLET PO SCH (10:10)
[2018-10-01] MEDS: ASPIRIN 81 MG TAB.CHEW PO SCH (10:10)
[2018-10-01] MEDS: MULTIVITAMIN with MINERAL TABLET. PO SCH (10:10)
[2018-10-01] MEDS: OXYBUTYNIN CHLORIDE 5 MG TABLET PO SCH ×2 (10:11→19:45)
[2018-10-01] MEDS: DICLOFENAC SODIUM 1% TOPICAL GEL 100GM TUBE. TP SCH ×4 (10:11→19:45)
[2018-10-01] MEDS: METHYLPHENIDATE HCL 5 MG TABLET PO SCH ×2 (10:11→17:39)
[2018-10-01 16:05] VITALS: BP 162/76
[2018-10-01] MEDS: DIVALPROEX ER 500 MG TAB.ER.24H PO SCH (17:39)
[2018-10-01] MEDS ORDERED: CHOLECALCIFEROL (VITAMIN D3) 50,000 UNIT CAPSULE PO SCH (18:15)
[2018-10-01] MEDS: ATORVASTATIN CALCIUM 20 MG TABLET PO SCH (19:45)
[2018-10-01] MEDS: CETIRIZINE HCL 10 MG TABLET PO SCH (19:45)
[2018-10-01] MEDS: SODIUM OXYBATE PO SCH (19:45)
--- NOTE | 2018-10-02 02:43 | PN ---
DATE: 10/01/2018 SUBJECTIVE: The patient was seen today, met with the staff, chart reviewed. Staff reports no major problems. The patient's affect has improved. The patient is no longer having problems falling asleep during the daytime. OBSERVATION: VITAL SIGNS: Temperature 97.9, blood pressure 130/76, pulse 66, respirations 20, O2 sat 94%. Slept about 5 hours last night. LABORATORY DATA: The patient's lab reviewed. MEDICATIONS: Reviewed, not having any side effects, no other major medical issues. ASSESSMENT: 1. Major depressive disorder, recurrent with psychotic features. 2. Cognitive disorder, unspecified. PLAN: To continue with the treatment. PAUL MORGAN MD DR: VINCENT/kamini JOB#: [id number] / [id number]
[2018-10-02 05:44] VITALS: BP 137/80
[2018-10-02 07:25] LABS: BASO % 1 % (0-3); EOS # 0.3 x10^3/uL (0.0-0.7); EOS % 3 % (0-3); HEMATOCRIT 43.2 % (36.0-47.0); HEMOGLOBIN 14.4 g/dL (12.0-15.5); LYMPH # 1.2 x10^3/uL (1.0-4.8); LYMPH % 12 % (24-48); MEAN CORPUSCULAR HEMOGLOBIN 30 pg (25-35); MEAN CORPUSCULAR HGB CONC 33 g/dL (31-37); MEAN CORPUSCULAR VOLUME 89 fL (79-100); MONO # 1.6 x10^3/uL (0.0-1.1); MONO % 16 % (0-9); NEUT # 7.2 x10^3uL (1.8-7.7); NEUT % 69 % (31-73); PLATELET COUNT 264 x10^3/uL (140-400); RED BLOOD COUNT 4.88 x10^6/uL (3.50-5.40); WHITE BLOOD COUNT 10.4 x10^3/uL (4.0-11.0)
[2018-10-02 07:29] LABS: ALBUMIN 2.6 g/dL (3.4-5.0); ALBUMIN/GLOBULIN RATIO 0.7 (1.0-1.7); CALCIUM 8.9 mg/dL (8.5-10.1); CREATININE 0.8 mg/dL (0.6-1.0); GFR 68.5; POTASSIUM 3.8 mmol/L (3.5-5.1); TOTAL BILIRUBIN 0.3 mg/dL (0.2-1.0); TOTAL PROTEIN 6.4 g/dL (6.4-8.2)
[2018-10-02] MEDS: PANTOPRAZOLE 40 MG TABLET. PO SCH (08:13)
[2018-10-02] MEDS: LEVOTHYROXINE 100 MCG TABLET PO SCH (08:14)
[2018-10-02] MEDS: cycloSPORINE 0.05% OPTH 1 DROP DROPERETTE OU SCH ×2 (08:14→20:13)
[2018-10-02] MEDS: VENLAFAXINE XR 37.5 MG CAP.ER.24H. PO SCH ×2 (08:14→08:18)
[2018-10-02] MEDS: OXYBUTYNIN CHLORIDE 5 MG TABLET PO SCH ×2 (08:14→20:13)
[2018-10-02] MEDS: MULTIVITAMIN with MINERAL TABLET. PO SCH (08:14)
[2018-10-02] MEDS: ASPIRIN 81 MG TAB.CHEW PO SCH (08:14)
[2018-10-02] MEDS: DICLOFENAC SODIUM 1% TOPICAL GEL 100GM TUBE. TP SCH ×3 (08:15→20:14)
[2018-10-02] MEDS: CHOLECALCIFEROL (VITAMIN D3) 50,000 UNIT CAPSULE PO SCH (08:18)
[2018-10-02] MEDS: METHYLPHENIDATE HCL 5 MG TABLET PO SCH ×2 (08:19→16:53)
[2018-10-02] MEDS: ALBUTEROL SULFATE 2.5 MG/3 ML NEBU. NEB SCH ×2 (11:30→20:39)
[2018-10-02 16:33] VITALS: BP 136/81
[2018-10-02] MEDS: DIVALPROEX ER 500 MG TAB.ER.24H PO SCH (16:53)
--- NOTE | 2018-10-02 19:09 | PN ---
DATE: 10/02/2018 SUBJECTIVE: The patient was seen today. I met with the staff, chart reviewed. Staff reports no major behavior problems. OBSERVATION: VITAL SIGNS: Temperature 98.3, blood pressure 132/80, pulse 65, respiration 18, O2 sat 93%. Slept about 5 hours last night. The patient still obsessed with medications and states she is still having difficulty with sleep at night. The patient is not having any side effects from medications. The patient's lab reviewed. ASSESSMENT: 1. Major depressive disorder, recurrent with psychotic features. 2. Cognitive disorder, unspecified. PLAN: To continue with the treatment. PAUL MORGAN MD DR: VINCENT/kamini JOB#: [id number] / [id number]
[2018-10-02] MEDS: CETIRIZINE HCL 10 MG TABLET PO SCH (20:13)
[2018-10-02] MEDS: ATORVASTATIN CALCIUM 20 MG TABLET PO SCH (20:13)
[2018-10-02] MEDS: SODIUM OXYBATE PO SCH (20:14)
[2018-10-03] MEDS: LEVOTHYROXINE 100 MCG TABLET PO SCH (05:40)
[2018-10-03 06:18] VITALS: BP 152/79
[2018-10-03] MEDS: MULTIVITAMIN with MINERAL TABLET. PO SCH (07:47)
[2018-10-03] MEDS: ASPIRIN 81 MG TAB.CHEW PO SCH (07:47)
[2018-10-03] MEDS: cycloSPORINE 0.05% OPTH 1 DROP DROPERETTE OU SCH ×2 (07:47→20:33)
[2018-10-03] MEDS: METHYLPHENIDATE HCL 5 MG TABLET PO SCH ×2 (07:47→16:26)
[2018-10-03] MEDS: OXYBUTYNIN CHLORIDE 5 MG TABLET PO SCH ×2 (07:47→20:33)
[2018-10-03] MEDS: PANTOPRAZOLE 40 MG TABLET. PO SCH (07:47)
[2018-10-03] MEDS: VENLAFAXINE XR 37.5 MG CAP.ER.24H. PO SCH (07:50)
[2018-10-03] MEDS: ALBUTEROL SULFATE 2.5 MG/3 ML NEBU. NEB SCH ×2 (10:30→21:18)
[2018-10-03] MEDS: DICLOFENAC SODIUM 1% TOPICAL GEL 100GM TUBE. TP SCH ×3 (11:01→20:33)
[2018-10-03 15:58] VITALS: BP 147/83
[2018-10-03] MEDS: DIVALPROEX ER 500 MG TAB.ER.24H PO SCH (16:27)
[2018-10-03] MEDS: ATORVASTATIN CALCIUM 20 MG TABLET PO SCH (20:33)
[2018-10-03] MEDS: CETIRIZINE HCL 10 MG TABLET PO SCH (20:33)
[2018-10-03] MEDS: SODIUM OXYBATE PO SCH (20:33)
--- NOTE | 2018-10-03 22:04 | PN ---
DATE: 10/03/2018 SUBJECTIVE: The patient was seen today, met with the staff, chart reviewed. The patient continues to show improvement. The patient's affect has improved. The patient apparently not having any problems with the sleep attacks during the daytime as she has a diagnosis of narcolepsy. OBSERVATION: VITAL SIGNS: Temperature 98.1, blood pressure 147/83, pulse 81, respiration 18, O2 sat 97%. Slept about 8 hours last night. CURRENT MEDICATIONS: The patient's medications reviewed. She is not having any side effects. She is medically stable at this time. ASSESSMENT: 1. Major depressive disorder, recurrent with psychotic features. 2. Cognitive disorder, unspecified. PLAN: To continue with the treatment. PAUL MORGAN MD DR: VINCENT/kamini JOB#: [id number] / [id number]
[2018-10-04 05:56] VITALS: BP 116/63
[2018-10-04] MEDS: LEVOTHYROXINE 100 MCG TABLET PO SCH (05:58)
[2018-10-04] MEDS: VENLAFAXINE XR 37.5 MG CAP.ER.24H. PO SCH (07:48)
[2018-10-04] MEDS: METHYLPHENIDATE HCL 5 MG TABLET PO SCH ×2 (07:48→16:07)
[2018-10-04] MEDS: OXYBUTYNIN CHLORIDE 5 MG TABLET PO SCH ×2 (07:48→20:32)
[2018-10-04] MEDS: ASPIRIN 81 MG TAB.CHEW PO SCH (07:49)
[2018-10-04] MEDS: MULTIVITAMIN with MINERAL TABLET. PO SCH (07:49)
[2018-10-04] MEDS: PANTOPRAZOLE 40 MG TABLET. PO SCH (07:49)
[2018-10-04] MEDS: cycloSPORINE 0.05% OPTH 1 DROP DROPERETTE OU SCH ×2 (07:49→20:32)
[2018-10-04] MEDS: DICLOFENAC SODIUM 1% TOPICAL GEL 100GM TUBE. TP SCH ×3 (07:50→20:33)
[2018-10-04] MEDS: ALBUTEROL SULFATE 2.5 MG/3 ML NEBU. NEB SCH ×2 (11:52→20:10)
[2018-10-04 16:00] VITALS: BP 122/67
[2018-10-04] MEDS: DIVALPROEX ER 500 MG TAB.ER.24H PO SCH (16:07)
[2018-10-04] MEDS: ATORVASTATIN CALCIUM 20 MG TABLET PO SCH (20:33)
[2018-10-04] MEDS: CETIRIZINE HCL 10 MG TABLET PO SCH (20:33)
[2018-10-04] MEDS: SODIUM OXYBATE PO SCH (20:34)
--- NOTE | 2018-10-04 22:53 | PN ---
DATE: 10/04/2018 SUBJECTIVE: The patient was seen today, met with the staff, chart reviewed. The patient continues to show improvement. She is awake most of the daytime. The patient has been compliant with the treatment, tends to withdraw to self. Sleep has improved. MEDICATIONS: The patient's current medications include Depakote, Effexor, Ritalin and the patient is not having any side effects and no major medical issues. ASSESSMENT: 1. Major depressive disorder, recurrent with psychotic features. 2. Cognitive disorder, unspecified. PLAN: To continue with the treatment. PAUL MORGAN MD DR: VINCENT/kamini JOB#: [id number] / [id number]
[2018-10-05] MEDS: LEVOTHYROXINE 100 MCG TABLET PO SCH (04:55)
[2018-10-05 05:41] VITALS: BP 130/78
[2018-10-05] MEDS: VENLAFAXINE XR 37.5 MG CAP.ER.24H. PO SCH (07:48)
[2018-10-05] MEDS: MULTIVITAMIN with MINERAL TABLET. PO SCH (07:49)
[2018-10-05] MEDS: OXYBUTYNIN CHLORIDE 5 MG TABLET PO SCH ×2 (07:49→21:01)
[2018-10-05] MEDS: cycloSPORINE 0.05% OPTH 1 DROP DROPERETTE OU SCH ×2 (07:49→21:02)
[2018-10-05] MEDS: PANTOPRAZOLE 40 MG TABLET. PO SCH (07:49)
[2018-10-05] MEDS: ASPIRIN 81 MG TAB.CHEW PO SCH (07:49)
[2018-10-05] MEDS: DICLOFENAC SODIUM 1% TOPICAL GEL 100GM TUBE. TP SCH ×3 (07:51→21:04)
[2018-10-05] MEDS: METHYLPHENIDATE HCL 5 MG TABLET PO SCH ×2 (07:51→17:24)
[2018-10-05] MEDS: ALBUTEROL SULFATE 2.5 MG/3 ML NEBU. NEB SCH ×2 (11:52→21:57)
--- NOTE | 2018-10-05 14:56 | PN ---
DATE: 10/05/2018 SUBJECTIVE: The patient was seen today, met with the staff, chart reviewed. The patient's behavior has improved. The patient has been participating in all the activities. The patient is awake most of the day, not falling asleep. OBJECTIVE: VITAL SIGNS: Temperature 97.4, blood pressure 130/78, respiration 16, pulse 63, O2 sat 94%. Slept about 6-1/2 hours last night. CURRENT MEDICATIONS: The patient's current medications include Depakote, Effexor, and the patient is not having any side effects from it. The patient's lab reviewed. ASSESSMENT: 1. Major depressive disorder, recurrent with psychotic features. 2. Cognitive disorder, unspecified. PLAN: To continue with the treatment. PAUL MORGAN MD DR: VINCENT/kamini JOB#: [id number] / [id number]
[2018-10-05] MEDS: DIVALPROEX ER 500 MG TAB.ER.24H PO SCH (17:00)
[2018-10-05 17:12] VITALS: BP 138/83
[2018-10-05] MEDS: CETIRIZINE HCL 10 MG TABLET PO SCH (21:01)
[2018-10-05] MEDS: ATORVASTATIN CALCIUM 20 MG TABLET PO SCH (21:02)
[2018-10-05] MEDS: SODIUM OXYBATE PO SCH (21:04)
[2018-10-06] MEDS: LEVOTHYROXINE 100 MCG TABLET PO SCH (04:54)
[2018-10-06 05:48] VITALS: BP 141/67
[2018-10-06] MEDS: cycloSPORINE 0.05% OPTH 1 DROP DROPERETTE OU SCH ×2 (07:29→20:51)
[2018-10-06] MEDS: OXYBUTYNIN CHLORIDE 5 MG TABLET PO SCH ×2 (07:30→20:52)
[2018-10-06] MEDS: PANTOPRAZOLE 40 MG TABLET. PO SCH (07:30)
[2018-10-06] MEDS: VENLAFAXINE XR 37.5 MG CAP.ER.24H. PO SCH (07:30)
[2018-10-06] MEDS: ASPIRIN 81 MG TAB.CHEW PO SCH (07:30)
[2018-10-06] MEDS: MULTIVITAMIN with MINERAL TABLET. PO SCH (07:30)
[2018-10-06] MEDS: DICLOFENAC SODIUM 1% TOPICAL GEL 100GM TUBE. TP SCH ×3 (07:32→20:54)
[2018-10-06] MEDS: METHYLPHENIDATE HCL 5 MG TABLET PO SCH ×2 (07:32→17:04)
[2018-10-06 07:43] LABS: BASO % 1 % (0-3); EOS # 0.3 x10^3/uL (0.0-0.7); EOS % 5 % (0-3); HEMATOCRIT 41.4 % (36.0-47.0); HEMOGLOBIN 13.8 g/dL (12.0-15.5); LYMPH # 1.1 x10^3/uL (1.0-4.8); LYMPH % 15 % (24-48); MEAN CORPUSCULAR HEMOGLOBIN 29 pg (25-35); MEAN CORPUSCULAR HGB CONC 33 g/dL (31-37); MEAN CORPUSCULAR VOLUME 88 fL (79-100); MONO # 1.1 x10^3/uL (0.0-1.1); MONO % 14 % (0-9); NEUT # 4.9 x10^3uL (1.8-7.7); NEUT % 66 % (31-73); PLATELET COUNT 286 x10^3/uL (140-400); RED BLOOD COUNT 4.69 x10^6/uL (3.50-5.40); WHITE BLOOD COUNT 7.4 x10^3/uL (4.0-11.0)
[2018-10-06 07:54] LABS: ALBUMIN 2.7 g/dL (3.4-5.0); ALBUMIN/GLOBULIN RATIO 0.7 (1.0-1.7); CALCIUM 8.8 mg/dL (8.5-10.1); CREATININE 0.9 mg/dL (0.6-1.0); GFR 59.8; TOTAL BILIRUBIN 0.3 mg/dL (0.2-1.0); TOTAL PROTEIN 6.4 g/dL (6.4-8.2)
[2018-10-06] MEDS: ALBUTEROL SULFATE 2.5 MG/3 ML NEBU. NEB SCH ×2 (11:24→20:36)
[2018-10-06 15:50] VITALS: BP 126/73
[2018-10-06] MEDS: DIVALPROEX ER 500 MG TAB.ER.24H PO SCH (17:04)
--- NOTE | 2018-10-06 19:50 | PDOC ---
Exam Note: Lm Note: Please also refer to the separate dictated note~for this date of service dictated separately.~Patient seen individually. Discussed the patient with Nursing staff reviewed the chart.~Reviewed interim history and current functioning. Reviewed vital signs,~Labs/ Radiology~and current medications noted below. Continue current treatment with the changes noted in the dictated addendum note Assessment: Vital Signs: Vital Signs Date Time Temp Pulse Resp B/P (MAP) Pulse Ox O2 Delivery O2 Flow Rate FiO2 10/06/18 15:50 98.6 67 20 126/73 (90) 95 10/06/18 11:25 Room Air I&O Intake and Output 10/06/18 07:00 Intake Total 1080 ml Balance 1080 ml Intake Oral 1080 ml # Bowel Movements 1 Labs: Laboratory Tests Test 10/06/18 07:12 White Blood Count 7.4 x10^3/uL (4.0-11.0) Red Blood Count 4.69 x10^6/uL (3.50-5.40) Hemoglobin 13.8 g/dL (12.0-15.5) Hematocrit 41.4 % (36.0-47.0) Mean Corpuscular Volume 88 fL (79-100) Mean Corpuscular Hemoglobin 29 pg (25-35) Mean Corpuscular Hemoglobin Concent 33 g/dL (31-37) Red Cell Distribution Width 16.0 % (11.5-14.5) H Platelet Count 286 x10^3/uL (140-400) Neutrophils (%) (Auto) 66 % (31-73) Lymphocytes (%) (Auto) 15 % (24-48) L Monocytes (%) (Auto) 14 % (0-9) H Eosinophils (%) (Auto) 5 % (0-3) H Basophils (%) (Auto) 1 % (0-3) Neutrophils # (Auto) 4.9 x10^3uL (1.8-7.7) Lymphocytes # (Auto) 1.1 x10^3/uL (1.0-4.8) Monocytes # (Auto) 1.1 x10^3/uL (0.0-1.1) Eosinophils # (Auto) 0.3 x10^3/uL (0.0-0.7) Basophils # (Auto) 0.0 x10^3/uL (0.0-0.2) Sodium Level 143 mmol/L (136-145) Potassium Level 4.0 mmol/L (3.5-5.1) Chloride Level 104 mmol/L (98-107) Carbon Dioxide Level 33 mmol/L (21-32) H Anion Gap 6 (6-14) Blood Urea Nitrogen 17 mg/dL (7-20) Creatinine 0.9 mg/dL (0.6-1.0) Estimated GFR (Cockcroft-Gault) 59.8 BUN/Creatinine Ratio 19 (6-20) Glucose Level 77 mg/dL (70-99) Calcium Level 8.8 mg/dL (8.5-10.1) Total Bilirubin 0.3 mg/dL (0.2-1.0) Aspartate Amino Transferase (AST) 16 U/L (15-37) Alanine Aminotransferase (ALT) 17 U/L (14-59) Alkaline Phosphatase 74 U/L (46-116) Total Protein 6.4 g/dL (6.4-8.2) Albumin 2.7 g/dL (3.4-5.0) L Albumin/Globulin Ratio 0.7 (1.0-1.7) L Current Medications: Meds: Current Medications Acetaminophen (Tylenol) 650 mg PRN Q6HRS PRN PO PAIN / TEMP; Start 09/25/18 at 16:15; Status Cancel Multi-Ingredient Ointment (Analgesic [place]) 1 mike PRN QID PRN TP MUSCLE PAIN; Start 09/25/18 at 16:15 Al Hydroxide/Mg Hydroxide (Mylanta Plus Xs) 15 ml PRN AFTMEALHC PRN PO DYSPEPSIA; Start 09/25/18 at 16:15 Magnesium Hydroxide (Milk Of Magnesia) 2,400 mg PRN QHS PRN PO CONSTIPATION; Start 09/25/18 at 16:15 Albuterol Sulfate (Ventolin Hfa Inhaler) 2 puff BID IH ; Start 09/26/18 at 09:00 ; Stop 09/26/18 at 09:00; Status DC Albuterol Sulfate (Ventolin Hfa Inhaler) 2 puff PRN Q4HRS PRN IH FOR ASTHMA; Start 09/25/18 at 22:30; Stop 09/25/18 at 22:57; Status DC Atorvastatin Calcium (Lipitor) 20 mg QHS PO Last administered on 10/05/18at 21: 02; Start 09/26/18 at 21:00 Cyclosporine (Restasis) 1 drop BID OU Last administered on 10/06/18at 07:29; Start 09/26/18 at 09:00 Diclofenac Sodium (Voltaren) 1 mike TID TP Last administered on 10/06/18at 14:00 ; Start 09/26/18 at 09:00 Guaifenesin (Mucinex Er) 600 mg PRN BID PRN PO COUGH; Start 09/25/18 at 22:30 Levothyroxine Sodium (Synthroid) 100 mcg DAILYAC PO Last administered on at 08:14; Start 09/26/18 at 07:30; Stop 10/02/18 at 08:30; Status DC Nitroglycerin (Nitrostat) 0.4 mg PRN Q5MIN PRN SL CHEST PAIN; Start 09/25/18 at 22:30 Tramadol HCl (Ultram) 50 mg PRN Q6HRS PRN PO PAIN Last administered on at 21:22; Start 09/25/18 at 22:30 Aspirin (Children'S Aspirin) 81 mg DAILYWBKFT PO Last administered on at 07:30; Start 09/26/18 at 08:00 Cetirizine HCl (ZyrTEC) 5 mg QHS PO Last administered on 10/05/18at 21:01; Start 09/26/18 at 21:00 Vitamin D (Vitamin D3) 5,000 unit DAILY PO Last administered on 10/01/18at 10: 09; Start 09/26/18 at 09:00; Stop 10/01/18 at 18:03; Status DC Docusate Sodium (Colace) 100 mg PRN DAILY PRN PO CONSTIPATION; Start 09/25/18 at 22:45 Loperamide HCl (Imodium) 2 mg PRN QID PRN PO DIARRHEA; Start 09/25/18 at 22:45 Multivitamins/ Calcium (Thera-M Plus) 1 tab DAILY PO Last administered on 10/06at 07:30; Start 09/26/18 at 09:00 Ondansetron HCl (Zofran Odt) 4 mg PRN Q6HRS PRN PO NAUSEA/VOMITING; Start 09/25 at 22:45 Oxybutynin Chloride (Ditropan) 5 mg BID PO Last administered on 10/06/18at 07: 30; Start 09/26/18 at 09:00 Pantoprazole Sodium (Protonix) 40 mg DAILYAC PO Last administered on at 07:30; Start 09/26/18 at 07:30 Zinc Oxide (Zinc Oxide 20% Topical) 1 mike PRN BID PRN TP DRY SKIN / SCALING Last administered on 09/26/18at 20:10; Start 09/25/18 at 23:00 Non-Formulary Medication (Dextroamphetamine/ Amphetamine (Adderall 20 Mg Tablet) ) 20 mg TID PO ; Start 09/26/18 at 09:00; Stop 09/29/18 at 08:06; Status DC Divalproex Sodium (Depakote Er) 500 mg DAILYWSUP PO Last administered on at 17:04; Start 09/26/18 at 17:00; Stop 10/06/18 at 17:52; Status DC Non-Formulary Medication (Sodium Oxybate (Xyrem)) 7 ml HS PO Last administered on 10/05/18at 21:04; Start 09/26/18 at 21:00 Venlafaxine HCl (Effexor Xr) 75 mg DAILY PO Last administered on 10/02/18at 08: 14; Start 09/26/18 at 09:00; Stop 10/02/18 at 10:14; Status DC Venlafaxine HCl (Effexor Xr) 150 mg DAILY PO Last administered on 10/02/18at 08 :18; Start 09/26/18 at 09:00; Stop 10/02/18 at 10:15; Status DC Albuterol Sulfate (Ventolin) 2.5 mg RTBID NEB Last administered on 10/06/18at 11:24; Start 09/26/18 at 08:00 Albuterol Sulfate (Ventolin) 2.5 mg PRN Q4HRS PRN NEB SHORTNESS OF BREATH; Start 09/25/18 at 23:00 Acetaminophen (Tylenol) 650 mg PRN Q4HRS PRN PO PAIN / TEMP; Start 09/29/18 at 01:30 Non-Formulary Medication (Dextroamphetamine/ Amphetamine (Adderall 20 Mg Tablet) ) 20 mg TID PO ; Start 09/29/18 at 09:00; Status UNV Methylphenidate HCl (Methylphenidate HCl) 20 mg BID94 PO Last administered on 10/06/18at 17:04; Start 09/29/18 at 09:00 Vitamin D (Vitamin D3) 50,000 unit WEEKLY PO ; Start 10/01/18 at 18:15; Stop 10/01/18 at 18:43; Status DC Vitamin D (Vitamin D3) 50,000 unit WEEKLY PO Last administered on 10/02/18at 08 :18; Start 10/02/18 at 09:00 Levothyroxine Sodium (Synthroid) 100 mcg DAILY06 PO Last administered on at 04:54; Start 10/03/18 at 06:00 Venlafaxine HCl (Effexor Xr) 225 mg DAILY PO Last administered on 10/06/18at 07 :30; Start 10/03/18 at 09:00 Benzonatate (Tessalon Perle) 100 mg [id number] PO ; Start 10/06/18 at 21:00 Divalproex Sodium (Depakote Er) 500 mg HS PO ; Start 10/07/18 at 21:00 Divalproex Sodium (Depakote) 250 mg DAILY PO ; Start 10/07/18 at 09:00 Active Scripts Active Reported Adderall 20 Mg Tablet (Dextroamphetamine/Amphetamine) 20 Mg Tablet 20 Mg PO TID Tylenol (Acetaminophen) 325 Mg Tablet 650 Mg PO PRN Q4HRS PRN Loperamide (Loperamide Hcl) 2 Mg Capsule 2 Mg PO PRN QID PRN Colace (Docusate Sodium) 100 Mg Capsule 100 Mg PO PRN DAILY PRN Xyrem (Sodium Oxybate) 500 Mg/1 Ml Solution 7 Ml PO HS Vitamin D3 (Cholecalciferol (Vitamin D3)) 5,000 Unit Tablet 5,000 Unit PO DAILY Ventolin Hfa Inhaler (Albuterol Sulfate) 18 Gm Hfa.aer.ad 2 Puff IH BID Venlafaxine Hcl Er (Venlafaxine Hcl) 75 Mg Cap.er.24h 75 Mg PO DAILY Venlafaxine Hcl Er (Venlafaxine Hcl) 150 Mg Cap.er.24h 150 Mg PO DAILY Thera-M (Multivits, W-Fe,Other Min) 1 Each Tablet 1 Tab PO DAILY Restasis (Cyclosporine) 1 Each Droperette 1 Drop EACHEYE BID Protonix (Pantoprazole Sodium) 20 Mg Tablet.dr 20 Mg PO DAILY Ditropan Xl (Oxybutynin Chloride) 10 Mg Tab.er.24 10 Mg PO DAILY Levothyroxine Sodium 100 Mcg Tablet 100 Mcg PO DAILYAC Cetirizine Hcl 10 Mg Tablet 5 Mg PO HS Atorvastatin Calcium 20 Mg Tablet 20 Mg PO QHS Aspirin 81 Mg Tab.chew 81 Mg PO DAILY Depakote Er (Divalproex Sodium) 500 Mg Tab.er.24h 500 Mg PO DAILYWSUP Zinc Oxide 57 Gm Oint...g. 1 Mike TP PRN BID PRN Voltaren (Diclofenac Sodium) 100 Gm Gel..gram. 1 Gm TD TID Ventolin Hfa Inhaler (Albuterol Sulfate) 18 Gm Hfa.aer.ad 2 Puff IH PRN Q4HRS PRN Tramadol Hcl (Tramadol HCl) 50 Mg Tablet 50 Mg PO PRN Q6HRS PRN Ondansetron Odt (Ondansetron) 4 Mg Tab.rapdis 4 Mg PO PRN Q6HRS PRN Nitrostat (Nitroglycerin) 0.4 Mg Tab.subl 0.4 Mg SL PRN Q5MIN PRN Mucinex (Guaifenesin) 600 Mg Tablet.er 600 Mg PO PRN BID PRN I have reviewed the current psychotropics carefully including drug interactions. Risk benefit ratio favors no change other than as noted in my dictated progress note. Diagnosis: Problems: (1) Medical clearance for psychiatric admission (2) Anxiety disorder (3) Impulse control disorder (4) Major depressive disorder, recurrent episode ANABELL MCDONALD MD Oct 06, 2018 19:50
[2018-10-06] MEDS: ATORVASTATIN CALCIUM 20 MG TABLET PO SCH (20:51)
[2018-10-06] MEDS: CETIRIZINE HCL 10 MG TABLET PO SCH (20:52)
[2018-10-06] MEDS: BENZONATATE 100 MG CAPSULE. PO SCH (20:54)
[2018-10-06] MEDS: SODIUM OXYBATE PO SCH (20:54)
[2018-10-07] MEDS: LEVOTHYROXINE 100 MCG TABLET PO SCH (05:02)
[2018-10-07 06:17] VITALS: BP 136/72
[2018-10-07] MEDS ORDERED: traZODone 50 MG TABLET. PO PRN (07:15)
[2018-10-07] MEDS: PANTOPRAZOLE 40 MG TABLET. PO SCH (08:15)
[2018-10-07] MEDS: ASPIRIN 81 MG TAB.CHEW PO SCH (08:15)
[2018-10-07] MEDS: cycloSPORINE 0.05% OPTH 1 DROP DROPERETTE OU SCH ×2 (08:16→21:36)
[2018-10-07] MEDS: MULTIVITAMIN with MINERAL TABLET. PO SCH (08:16)
[2018-10-07] MEDS: VENLAFAXINE XR 37.5 MG CAP.ER.24H. PO SCH (08:16)
[2018-10-07] MEDS: BENZONATATE 100 MG CAPSULE. PO SCH ×3 (08:16→21:36)
[2018-10-07] MEDS: OXYBUTYNIN CHLORIDE 5 MG TABLET PO SCH ×2 (08:16→21:36)
[2018-10-07] MEDS: DICLOFENAC SODIUM 1% TOPICAL GEL 100GM TUBE. TP SCH ×3 (08:17→21:36)
[2018-10-07] MEDS: METHYLPHENIDATE HCL 5 MG TABLET PO SCH ×2 (08:18→15:52)
[2018-10-07] MEDS: DIVALPROEX SODIUM 250 MG TABLET.DR. PO SCH (08:18)
[2018-10-07] MEDS: ALBUTEROL SULFATE 2.5 MG/3 ML NEBU. NEB SCH ×2 (11:09→20:28)
[2018-10-07 16:14] VITALS: BP 136/81
--- NOTE | 2018-10-07 16:32 | RAD ---
EXAM: AP View of the chest DATE: 10/06/2018 8:18 PM INDICATION: productive cough, thick yellow sputum COMPARISON: No Prior FINDINGS/ IMPRESSION: The heart is not enlarged. Atherosclerotic calcifications of the tortuous aorta are seen. Patchy opacities in the medial right lung base and left lung base may represent developing consolidative process such as pneumonia. Atelectasis may have similar appearance. No pleural effusion or pneumothorax. Electronically signed by: Michelet Hendricks MD (10/07/2018 4:28 PM) [facility]
--- NOTE | 2018-10-07 19:20 | PDOC ---
Exam Note: Lm Note: Please also refer to the separate dictated note~for this date of service dictated separately.~Patient seen individually. Discussed the patient with Nursing staff reviewed the chart.~Reviewed interim history and current functioning. Reviewed vital signs,~Labs/ Radiology~and current medications noted below. Continue current treatment with the changes noted in the dictated addendum note Assessment: Vital Signs: Vital Signs Date Time Temp Pulse Resp B/P (MAP) Pulse Ox O2 Delivery O2 Flow Rate FiO2 10/07/18 16:14 98.0 60 18 136/81 (99) 96 10/07/18 11:09 Room Air I&O Intake and Output 10/07/18 07:00 Intake Total 840 ml Balance 840 ml Intake Oral 840 ml # Voids 1 Current Medications: Meds: Current Medications Acetaminophen (Tylenol) 650 mg PRN Q6HRS PRN PO PAIN / TEMP; Start 09/25/18 at 16:15; Status Cancel Multi-Ingredient Ointment (Analgesic [place]) 1 mike PRN QID PRN TP MUSCLE PAIN; Start 09/25/18 at 16:15 Al Hydroxide/Mg Hydroxide (Mylanta Plus Xs) 15 ml PRN AFTMEALHC PRN PO DYSPEPSIA; Start 09/25/18 at 16:15 Magnesium Hydroxide (Milk Of Magnesia) 2,400 mg PRN QHS PRN PO CONSTIPATION; Start 09/25/18 at 16:15 Albuterol Sulfate (Ventolin Hfa Inhaler) 2 puff BID IH ; Start 09/26/18 at 09:00 ; Stop 09/26/18 at 09:00; Status DC Albuterol Sulfate (Ventolin Hfa Inhaler) 2 puff PRN Q4HRS PRN IH FOR ASTHMA; Start 09/25/18 at 22:30; Stop 09/25/18 at 22:57; Status DC Atorvastatin Calcium (Lipitor) 20 mg QHS PO Last administered on 10/06/18at 20: 51; Start 09/26/18 at 21:00 Cyclosporine (Restasis) 1 drop BID OU Last administered on 10/07/18at 08:16; Start 09/26/18 at 09:00 Diclofenac Sodium (Voltaren) 1 mike TID TP Last administered on 10/07/18at 14:15 ; Start 09/26/18 at 09:00 Guaifenesin (Mucinex Er) 600 mg PRN BID PRN PO COUGH; Start 09/25/18 at 22:30 Levothyroxine Sodium (Synthroid) 100 mcg DAILYAC PO Last administered on at 08:14; Start 09/26/18 at 07:30; Stop 10/02/18 at 08:30; Status DC Nitroglycerin (Nitrostat) 0.4 mg PRN Q5MIN PRN SL CHEST PAIN; Start 09/25/18 at 22:30 Tramadol HCl (Ultram) 50 mg PRN Q6HRS PRN PO PAIN Last administered on at 21:22; Start 09/25/18 at 22:30 Aspirin (Children'S Aspirin) 81 mg DAILYWBKFT PO Last administered on at 08:15; Start 09/26/18 at 08:00 Cetirizine HCl (ZyrTEC) 5 mg QHS PO Last administered on 10/06/18at 20:52; Start 09/26/18 at 21:00 Vitamin D (Vitamin D3) 5,000 unit DAILY PO Last administered on 10/01/18at 10: 09; Start 09/26/18 at 09:00; Stop 10/01/18 at 18:03; Status DC Docusate Sodium (Colace) 100 mg PRN DAILY PRN PO CONSTIPATION; Start 09/25/18 at 22:45 Loperamide HCl (Imodium) 2 mg PRN QID PRN PO DIARRHEA; Start 09/25/18 at 22:45 Multivitamins/ Calcium (Thera-M Plus) 1 tab DAILY PO Last administered on 10/07at 08:16; Start 09/26/18 at 09:00 Ondansetron HCl (Zofran Odt) 4 mg PRN Q6HRS PRN PO NAUSEA/VOMITING; Start 09/25 at 22:45 Oxybutynin Chloride (Ditropan) 5 mg BID PO Last administered on 10/07/18at 08: 16; Start 09/26/18 at 09:00 Pantoprazole Sodium (Protonix) 40 mg DAILYAC PO Last administered on at 08:15; Start 09/26/18 at 07:30 Zinc Oxide (Zinc Oxide 20% Topical) 1 mike PRN BID PRN TP DRY SKIN / SCALING Last administered on 09/26/18at 20:10; Start 09/25/18 at 23:00 Non-Formulary Medication (Dextroamphetamine/ Amphetamine (Adderall 20 Mg Tablet) ) 20 mg TID PO ; Start 09/26/18 at 09:00; Stop 09/29/18 at 08:06; Status DC Divalproex Sodium (Depakote Er) 500 mg DAILYWSUP PO Last administered on at 17:04; Start 09/26/18 at 17:00; Stop 10/06/18 at 17:52; Status DC Non-Formulary Medication (Sodium Oxybate (Xyrem)) 7 ml HS PO Last administered on 10/06/18at 20:54; Start 09/26/18 at 21:00 Venlafaxine HCl (Effexor Xr) 75 mg DAILY PO Last administered on 10/02/18at 08: 14; Start 09/26/18 at 09:00; Stop 10/02/18 at 10:14; Status DC Venlafaxine HCl (Effexor Xr) 150 mg DAILY PO Last administered on 10/02/18at 08 :18; Start 09/26/18 at 09:00; Stop 10/02/18 at 10:15; Status DC Albuterol Sulfate (Ventolin) 2.5 mg RTBID NEB Last administered on 10/07/18at 11:09; Start 09/26/18 at 08:00 Albuterol Sulfate (Ventolin) 2.5 mg PRN Q4HRS PRN NEB SHORTNESS OF BREATH; Start 09/25/18 at 23:00 Acetaminophen (Tylenol) 650 mg PRN Q4HRS PRN PO PAIN / TEMP; Start 09/29/18 at 01:30 Non-Formulary Medication (Dextroamphetamine/ Amphetamine (Adderall 20 Mg Tablet) ) 20 mg TID PO ; Start 09/29/18 at 09:00; Status UNV Methylphenidate HCl (Methylphenidate HCl) 20 mg [id number] PO Last administered on 10/07/18at 15:52; Start 09/29/18 at 09:00 Vitamin D (Vitamin D3) 50,000 unit WEEKLY PO ; Start 10/01/18 at 18:15; Stop 10/01/18 at 18:43; Status DC Vitamin D (Vitamin D3) 50,000 unit WEEKLY PO Last administered on 10/02/18at 08 :18; Start 10/02/18 at 09:00 Levothyroxine Sodium (Synthroid) 100 mcg DAILY06 PO Last administered on at 05:02; Start 10/03/18 at 06:00 Venlafaxine HCl (Effexor Xr) 225 mg DAILY PO Last administered on 10/07/18at 08 :16; Start 10/03/18 at 09:00 Benzonatate (Tessalon Perle) 100 mg [id number] PO Last administered on 10/07/18at 14:15; Start 10/06/18 at 21:00 Divalproex Sodium (Depakote Er) 500 mg HS PO ; Start 10/07/18 at 21:00 Divalproex Sodium (Depakote) 250 mg DAILY PO Last administered on 10/07/18at 08 :18; Start 10/07/18 at 09:00 Trazodone HCl (Desyrel) 50 mg QHS PO ; Start 10/07/18 at 21:00 Trazodone HCl (Desyrel) 50 mg PRN QHS PRN PO INSOMNIA, MAY REPEAT X1; Start at 07:15 Active Scripts Active Reported Adderall 20 Mg Tablet (Dextroamphetamine/Amphetamine) 20 Mg Tablet 20 Mg PO TID Tylenol (Acetaminophen) 325 Mg Tablet 650 Mg PO PRN Q4HRS PRN Loperamide (Loperamide Hcl) 2 Mg Capsule 2 Mg PO PRN QID PRN Colace (Docusate Sodium) 100 Mg Capsule 100 Mg PO PRN DAILY PRN Xyrem (Sodium Oxybate) 500 Mg/1 Ml Solution 7 Ml PO HS Vitamin D3 (Cholecalciferol (Vitamin D3)) 5,000 Unit Tablet 5,000 Unit PO DAILY Ventolin Hfa Inhaler (Albuterol Sulfate) 18 Gm Hfa.aer.ad 2 Puff IH BID Venlafaxine Hcl Er (Venlafaxine Hcl) 75 Mg Cap.er.24h 75 Mg PO DAILY Venlafaxine Hcl Er (Venlafaxine Hcl) 150 Mg Cap.er.24h 150 Mg PO DAILY Thera-M (Multivits, W-Fe,Other Min) 1 Each Tablet 1 Tab PO DAILY Restasis (Cyclosporine) 1 Each Droperette 1 Drop EACHEYE BID Protonix (Pantoprazole Sodium) 20 Mg Tablet.dr 20 Mg PO DAILY Ditropan Xl (Oxybutynin Chloride) 10 Mg Tab.er.24 10 Mg PO DAILY Levothyroxine Sodium 100 Mcg Tablet 100 Mcg PO DAILYAC Cetirizine Hcl 10 Mg Tablet 5 Mg PO HS Atorvastatin Calcium 20 Mg Tablet 20 Mg PO QHS Aspirin 81 Mg Tab.chew 81 Mg PO DAILY Depakote Er (Divalproex Sodium) 500 Mg Tab.er.24h 500 Mg PO DAILYWSUP Zinc Oxide 57 Gm Oint...g. 1 Mike TP PRN BID PRN Voltaren (Diclofenac Sodium) 100 Gm Gel..gram. 1 Gm TD TID Ventolin Hfa Inhaler (Albuterol Sulfate) 18 Gm Hfa.aer.ad 2 Puff IH PRN Q4HRS PRN Tramadol Hcl (Tramadol HCl) 50 Mg Tablet 50 Mg PO PRN Q6HRS PRN Ondansetron Odt (Ondansetron) 4 Mg Tab.rapdis 4 Mg PO PRN Q6HRS PRN Nitrostat (Nitroglycerin) 0.4 Mg Tab.subl 0.4 Mg SL PRN Q5MIN PRN Mucinex (Guaifenesin) 600 Mg Tablet.er 600 Mg PO PRN BID PRN I have reviewed the current psychotropics carefully including drug interactions. Risk benefit ratio favors no change other than as noted in my dictated progress note. Diagnosis: Problems: (1) Medical clearance for psychiatric admission (2) Anxiety disorder (3) Impulse control disorder (4) Major depressive disorder, recurrent episode ANABELL MCDONALD MD Oct 07, 2018 19:20
[2018-10-07] MEDS: CETIRIZINE HCL 10 MG TABLET PO SCH (21:36)
[2018-10-07] MEDS: ATORVASTATIN CALCIUM 20 MG TABLET PO SCH (21:36)
[2018-10-07] MEDS: traZODone 50 MG TABLET. PO SCH (21:39)
[2018-10-07] MEDS: DIVALPROEX ER 500 MG TAB.ER.24H PO SCH (21:39)
[2018-10-07] MEDS: SODIUM OXYBATE PO SCH (21:40)
--- NOTE | 2018-10-07 23:08 | PN ---
DATE: 10/06/2018 PSYCHIATRIC PROGRESS NOTE This late entry 10/06/2018 covers elements not covered in my initial note. SUBJECTIVE: I met with the patient in the evening and discussed also with Dr. Torres, who had covered for me over the past week or so. The patient slept 6-1/4 hours previous night. She continues to be intermittently tearful with some evidence of pseudobulbar affect. She is otherwise having some cough and we will defer to Dr. Castillo. Chest x-ray has been done. She was wearing a red sweater as I met with her. REVIEW OF SYSTEMS: Ambulation impaired, in wheelchair. No CV, , eye, ENT system symptoms on review, but she does have the cough. MENTAL STATUS EXAM: Oriented to herself and situation. Speech has some latency, coherent. Abstraction fair, computation impaired, language function intact, attention span short. Mood and affect remain somewhat depressed, labile, anxious. LABORATORY DATA: Reviewed. Valproic acid level 35 on 09/25/2018, subtherapeutic. IMPRESSION: Major depressive disorder, pseudobulbar affect, major neurocognitive disorder, early vascular with depression. Rest unchanged. PLAN: Increase Depakote from 500 mg at 1700 to 250 a.m. and 500 at bedtime. Check CBC, CMP, valproic acid level in 3 days. Continue Xyrem and Ritalin for her narcolepsy, cataplexy, and consult with Dr. Campos is awaited. Continue Effexor ER 225 mg a day. ANABELL MCDONALD MD DR: MANNIE/kamini JOB#: [id number] / [id number]
[2018-10-08] MEDS: LEVOTHYROXINE 100 MCG TABLET PO SCH (05:37)
[2018-10-08 05:50] VITALS: BP 116/61
[2018-10-08] MEDS: cycloSPORINE 0.05% OPTH 1 DROP DROPERETTE OU SCH ×2 (07:32→20:09)
[2018-10-08] MEDS: PANTOPRAZOLE 40 MG TABLET. PO SCH (07:32)
[2018-10-08] MEDS: OXYBUTYNIN CHLORIDE 5 MG TABLET PO SCH ×2 (07:32→20:09)
[2018-10-08] MEDS: MULTIVITAMIN with MINERAL TABLET. PO SCH (07:32)
[2018-10-08] MEDS: ASPIRIN 81 MG TAB.CHEW PO SCH (07:32)
[2018-10-08] MEDS: VENLAFAXINE XR 37.5 MG CAP.ER.24H. PO SCH (07:32)
[2018-10-08] MEDS: DIVALPROEX SODIUM 250 MG TABLET.DR. PO SCH (07:32)
[2018-10-08] MEDS: BENZONATATE 100 MG CAPSULE. PO SCH ×3 (07:33→20:09)
[2018-10-08] MEDS: METHYLPHENIDATE HCL 5 MG TABLET PO SCH ×2 (07:34→15:46)
[2018-10-08] MEDS: DICLOFENAC SODIUM 1% TOPICAL GEL 100GM TUBE. TP SCH ×4 (09:00→20:09)
[2018-10-08] MEDS: ALBUTEROL SULFATE 2.5 MG/3 ML NEBU. NEB SCH ×2 (10:50→20:28)
[2018-10-08 16:01] VITALS: BP 130/83
--- NOTE | 2018-10-08 19:50 | PDOC ---
Exam Note: Lm Note: Please also refer to the separate dictated note~for this date of service dictated separately.~Patient seen individually. Discussed the patient with Nursing staff reviewed the chart.~Reviewed interim history and current functioning. Reviewed vital signs,~Labs/ Radiology~and current medications noted below. Continue current treatment with the changes noted in the dictated addendum note Assessment: Vital Signs: Vital Signs Date Time Temp Pulse Resp B/P (MAP) Pulse Ox O2 Delivery O2 Flow Rate FiO2 10/08/18 16:01 99.1 76 16 130/83 (99) 97 10/08/18 10:50 Room Air I&O Intake and Output 10/08/18 07:00 Intake Total 960 ml Balance 960 ml Intake Oral 960 ml # Bowel Movements 1 Current Medications: Meds: Current Medications Acetaminophen (Tylenol) 650 mg PRN Q6HRS PRN PO PAIN / TEMP; Start 09/25/18 at 16:15; Status Cancel Multi-Ingredient Ointment (Analgesic [place]) 1 mike PRN QID PRN TP MUSCLE PAIN; Start 09/25/18 at 16:15 Al Hydroxide/Mg Hydroxide (Mylanta Plus Xs) 15 ml PRN AFTMEALHC PRN PO DYSPEPSIA; Start 09/25/18 at 16:15 Magnesium Hydroxide (Milk Of Magnesia) 2,400 mg PRN QHS PRN PO CONSTIPATION; Start 09/25/18 at 16:15 Albuterol Sulfate (Ventolin Hfa Inhaler) 2 puff BID IH ; Start 09/26/18 at 09:00 ; Stop 09/26/18 at 09:00; Status DC Albuterol Sulfate (Ventolin Hfa Inhaler) 2 puff PRN Q4HRS PRN IH FOR ASTHMA; Start 09/25/18 at 22:30; Stop 09/25/18 at 22:57; Status DC Atorvastatin Calcium (Lipitor) 20 mg QHS PO Last administered on 10/07/18at 21: 36; Start 09/26/18 at 21:00 Cyclosporine (Restasis) 1 drop BID OU Last administered on 10/08/18at 07:32; Start 09/26/18 at 09:00 Diclofenac Sodium (Voltaren) 1 mike TID TP Last administered on 10/08/18at 15:07 ; Start 09/26/18 at 09:00 Guaifenesin (Mucinex Er) 600 mg PRN BID PRN PO COUGH; Start 09/25/18 at 22:30 Levothyroxine Sodium (Synthroid) 100 mcg DAILYAC PO Last administered on at 08:14; Start 09/26/18 at 07:30; Stop 10/02/18 at 08:30; Status DC Nitroglycerin (Nitrostat) 0.4 mg PRN Q5MIN PRN SL CHEST PAIN; Start 09/25/18 at 22:30 Tramadol HCl (Ultram) 50 mg PRN Q6HRS PRN PO PAIN Last administered on at 21:22; Start 09/25/18 at 22:30 Aspirin (Children'S Aspirin) 81 mg DAILYWBKFT PO Last administered on at 07:32; Start 09/26/18 at 08:00 Cetirizine HCl (ZyrTEC) 5 mg QHS PO Last administered on 10/07/18at 21:36; Start 09/26/18 at 21:00 Vitamin D (Vitamin D3) 5,000 unit DAILY PO Last administered on 10/01/18at 10: 09; Start 09/26/18 at 09:00; Stop 10/01/18 at 18:03; Status DC Docusate Sodium (Colace) 100 mg PRN DAILY PRN PO CONSTIPATION; Start 09/25/18 at 22:45 Loperamide HCl (Imodium) 2 mg PRN QID PRN PO DIARRHEA; Start 09/25/18 at 22:45 Multivitamins/ Calcium (Thera-M Plus) 1 tab DAILY PO Last administered on 10/08at 07:32; Start 09/26/18 at 09:00 Ondansetron HCl (Zofran Odt) 4 mg PRN Q6HRS PRN PO NAUSEA/VOMITING; Start 09/25 at 22:45 Oxybutynin Chloride (Ditropan) 5 mg BID PO Last administered on 10/08/18at 07: 32; Start 09/26/18 at 09:00 Pantoprazole Sodium (Protonix) 40 mg DAILYAC PO Last administered on at 07:32; Start 09/26/18 at 07:30 Zinc Oxide (Zinc Oxide 20% Topical) 1 mike PRN BID PRN TP DRY SKIN / SCALING Last administered on 09/26/18at 20:10; Start 09/25/18 at 23:00 Non-Formulary Medication (Dextroamphetamine/ Amphetamine (Adderall 20 Mg Tablet) ) 20 mg TID PO ; Start 09/26/18 at 09:00; Stop 09/29/18 at 08:06; Status DC Divalproex Sodium (Depakote Er) 500 mg DAILYWSUP PO Last administered on at 17:04; Start 09/26/18 at 17:00; Stop 10/06/18 at 17:52; Status DC Non-Formulary Medication (Sodium Oxybate (Xyrem)) 7 ml HS PO Last administered on 10/07/18at 21:40; Start 09/26/18 at 21:00 Venlafaxine HCl (Effexor Xr) 75 mg DAILY PO Last administered on 10/02/18at 08: 14; Start 09/26/18 at 09:00; Stop 10/02/18 at 10:14; Status DC Venlafaxine HCl (Effexor Xr) 150 mg DAILY PO Last administered on 10/02/18at 08 :18; Start 09/26/18 at 09:00; Stop 10/02/18 at 10:15; Status DC Albuterol Sulfate (Ventolin) 2.5 mg RTBID NEB Last administered on 10/08/18at 10:50; Start 09/26/18 at 08:00 Albuterol Sulfate (Ventolin) 2.5 mg PRN Q4HRS PRN NEB SHORTNESS OF BREATH; Start 09/25/18 at 23:00 Acetaminophen (Tylenol) 650 mg PRN Q4HRS PRN PO PAIN / TEMP; Start 09/29/18 at 01:30 Non-Formulary Medication (Dextroamphetamine/ Amphetamine (Adderall 20 Mg Tablet) ) 20 mg TID PO ; Start 09/29/18 at 09:00; Status UNV Methylphenidate HCl (Methylphenidate HCl) 20 mg [id number] PO Last administered on 10/08/18at 15:46; Start 09/29/18 at 09:00; Stop 10/08/18 at 18:49; Status DC Vitamin D (Vitamin D3) 50,000 unit WEEKLY PO ; Start 10/01/18 at 18:15; Stop 10/01/18 at 18:43; Status DC Vitamin D (Vitamin D3) 50,000 unit WEEKLY PO Last administered on 10/02/18at 08 :18; Start 10/02/18 at 09:00 Levothyroxine Sodium (Synthroid) 100 mcg DAILY06 PO Last administered on at 05:37; Start 10/03/18 at 06:00 Venlafaxine HCl (Effexor Xr) 225 mg DAILY PO Last administered on 10/08/18at 07 :32; Start 10/03/18 at 09:00 Benzonatate (Tessalon Perle) 100 mg [id number] PO Last administered on 10/08/18at 15:06; Start 10/06/18 at 21:00 Divalproex Sodium (Depakote Er) 500 mg HS PO Last administered on 10/07/18at 21 :39; Start 10/07/18 at 21:00 Divalproex Sodium (Depakote) 250 mg DAILY PO Last administered on 10/08/18at 07 :32; Start 10/07/18 at 09:00 Trazodone HCl (Desyrel) 50 mg QHS PO Last administered on 10/07/18at 21:39; Start 10/07/18 at 21:00 Trazodone HCl (Desyrel) 50 mg PRN QHS PRN PO INSOMNIA, MAY REPEAT X1; Start at 07:15 Methylphenidate HCl (Methylphenidate HCl) 20 mg 0600,1200 PO ; Start 10/09/18 at 06:00 Active Scripts Active Reported Adderall 20 Mg Tablet (Dextroamphetamine/Amphetamine) 20 Mg Tablet 20 Mg PO TID Tylenol (Acetaminophen) 325 Mg Tablet 650 Mg PO PRN Q4HRS PRN Loperamide (Loperamide Hcl) 2 Mg Capsule 2 Mg PO PRN QID PRN Colace (Docusate Sodium) 100 Mg Capsule 100 Mg PO PRN DAILY PRN Xyrem (Sodium Oxybate) 500 Mg/1 Ml Solution 7 Ml PO HS Vitamin D3 (Cholecalciferol (Vitamin D3)) 5,000 Unit Tablet 5,000 Unit PO DAILY Ventolin Hfa Inhaler (Albuterol Sulfate) 18 Gm Hfa.aer.ad 2 Puff IH BID Venlafaxine Hcl Er (Venlafaxine Hcl) 75 Mg Cap.er.24h 75 Mg PO DAILY Venlafaxine Hcl Er (Venlafaxine Hcl) 150 Mg Cap.er.24h 150 Mg PO DAILY Thera-M (Multivits, W-Fe,Other Min) 1 Each Tablet 1 Tab PO DAILY Restasis (Cyclosporine) 1 Each Droperette 1 Drop EACHEYE BID Protonix (Pantoprazole Sodium) 20 Mg Tablet.dr 20 Mg PO DAILY Ditropan Xl (Oxybutynin Chloride) 10 Mg Tab.er.24 10 Mg PO DAILY Levothyroxine Sodium 100 Mcg Tablet 100 Mcg PO DAILYAC Cetirizine Hcl 10 Mg Tablet 5 Mg PO HS Atorvastatin Calcium 20 Mg Tablet 20 Mg PO QHS Aspirin 81 Mg Tab.chew 81 Mg PO DAILY Depakote Er (Divalproex Sodium) 500 Mg Tab.er.24h 500 Mg PO DAILYWSUP Zinc Oxide 57 Gm Oint...g. 1 Mike TP PRN BID PRN Voltaren (Diclofenac Sodium) 100 Gm Gel..gram. 1 Gm TD TID Ventolin Hfa Inhaler (Albuterol Sulfate) 18 Gm Hfa.aer.ad 2 Puff IH PRN Q4HRS PRN Tramadol Hcl (Tramadol HCl) 50 Mg Tablet 50 Mg PO PRN Q6HRS PRN Ondansetron Odt (Ondansetron) 4 Mg Tab.rapdis 4 Mg PO PRN Q6HRS PRN Nitrostat (Nitroglycerin) 0.4 Mg Tab.subl 0.4 Mg SL PRN Q5MIN PRN Mucinex (Guaifenesin) 600 Mg Tablet.er 600 Mg PO PRN BID PRN I have reviewed the current psychotropics carefully including drug interactions. Risk benefit ratio favors no change other than as noted in my dictated progress note. Diagnosis: Problems: (1) Medical clearance for psychiatric admission (2) Anxiety disorder (3) Impulse control disorder (4) Major depressive disorder, recurrent episode ANABELL MCDONALD MD Oct 08, 2018 19:50
[2018-10-08] MEDS: traZODone 50 MG TABLET. PO SCH (20:08)
[2018-10-08] MEDS: DIVALPROEX ER 500 MG TAB.ER.24H PO SCH (20:08)
[2018-10-08] MEDS: ATORVASTATIN CALCIUM 20 MG TABLET PO SCH (20:09)
[2018-10-08] MEDS: SODIUM OXYBATE PO SCH (20:09)
[2018-10-08] MEDS: CETIRIZINE HCL 10 MG TABLET PO SCH (20:09)
--- NOTE | 2018-10-08 21:11 | PN ---
DATE: 10/07/2018 PSYCHIATRIC PROGRESS NOTE This late entry 10/07/2018 covers elements not covered in my initial note. SUBJECTIVE: I met with the patient in the evening at some length. The patient slept 5-3/4 hours previous evening. She has had some cough and Dr. Castillo is addressing this. Nursing report no overt behaviors. She did not go to bed until about 11:00 p.m. We had a chest x-ray done, report is awaited, will defer to Dr. Castillo. REVIEW OF SYSTEMS: Ambulation impaired, in wheelchair. No CV, , pulmonary, eye system symptoms on review other than complains of cough. MENTAL STATUS EXAM: Oriented to herself and situation. Speech has some latency, coherent. She is less tearful, less labile on 10/07/2018 as I met with her. Abstraction fair, computation impaired, language function intact, attention span short. Mood and affect less labile, less depressed. She talked at length about not wanting to return to the [facility]. She states her son, Ty Hudson is a Career Services Manager of [employer] and is looking at other options for her placement. We addressed this. LABORATORY DATA: Reviewed. IMPRESSION: Major depressive disorder with psychotic features; cognitive disorder, unspecified. Rest unchanged. PLAN: No change from initial note. Rule out pneumonia. Defer to Dr. Castillo. MAN Bridger MCDONALD MD DR: MANNIE/kamini JOB#: [id number] / [id number]
[2018-10-09 05:37] VITALS: BP 132/79
[2018-10-09] MEDS: LEVOTHYROXINE 100 MCG TABLET PO SCH (05:56)
[2018-10-09] MEDS: METHYLPHENIDATE HCL 5 MG TABLET PO SCH ×2 (05:56→11:55)
[2018-10-09] MEDS: VENLAFAXINE XR 37.5 MG CAP.ER.24H. PO SCH (07:47)
[2018-10-09] MEDS: MULTIVITAMIN with MINERAL TABLET. PO SCH (07:47)
[2018-10-09] MEDS: OXYBUTYNIN CHLORIDE 5 MG TABLET PO SCH (07:47)
[2018-10-09] MEDS: CHOLECALCIFEROL (VITAMIN D3) 50,000 UNIT CAPSULE PO SCH (07:47)
[2018-10-09] MEDS: PANTOPRAZOLE 40 MG TABLET. PO SCH (07:47)
[2018-10-09] MEDS: DIVALPROEX SODIUM 250 MG TABLET.DR. PO SCH (07:47)
[2018-10-09] MEDS: ASPIRIN 81 MG TAB.CHEW PO SCH (07:47)
[2018-10-09] MEDS: BENZONATATE 100 MG CAPSULE. PO SCH ×2 (07:47→14:15)
[2018-10-09] MEDS: cycloSPORINE 0.05% OPTH 1 DROP DROPERETTE OU SCH (07:48)
[2018-10-09] MEDS: DICLOFENAC SODIUM 1% TOPICAL GEL 100GM TUBE. TP SCH ×2 (09:30→14:15)
[2018-10-09] MEDS: ALBUTEROL SULFATE 2.5 MG/3 ML NEBU. NEB SCH (10:40)
[2018-10-09 15:36] VITALS: BP 137/71
--- NOTE | 2018-10-09 17:41 | RAD ---
EXAM: AP View of the chest DATE: 10/09/2018 11:20 AM INDICATION: cough, possible pneumonia COMPARISON: 10/06/2018 FINDINGS/ IMPRESSION: The heart is not enlarged. Atherosclerotic calcifications of the tortuous aorta are seen. Patchy left lung base and medial right lung base parenchymal opacities are seen, likely atelectasis. No pleural effusion or pneumothorax. Bronchovascular crowding from low lung volumes. Electronically signed by: Michelet Hendricks MD (10/09/2018 5:37 PM) [facility]
[2018-10-09] MEDS ORDERED: BENZ-8 PO (17:51)
[2018-10-09] MEDS ORDERED: CHOL500021 PO (17:52)
[2018-10-09] MEDS ORDERED: DIVA250T PO (17:53)
[2018-10-09] MEDS ORDERED: MAG30ORA PO (17:54)
[2018-10-09] MEDS ORDERED: MAGN2400 PO (17:54)
[2018-10-09] MEDS ORDERED: METH29OI TP (17:55)
[2018-10-09] MEDS ORDERED: VENL225T PO (17:56)
[2018-10-09] MEDS ORDERED: CYCL1DRO OP (17:57)
[2018-10-09] MEDS ORDERED: TRAZ-85 PO ×2 (17:57→17:58)
--- NOTE | 2018-10-09 22:49 | PDOC ---
Exam Note: Lm Note: Please also refer to the separate dictated note~for this date of service dictated separately.~Patient seen individually. Discussed the patient with Nursing staff reviewed the chart.~Reviewed interim history and current functioning. Reviewed vital signs,~Labs/ Radiology~and current medications noted below. Continue current treatment with the changes noted in the dictated addendum note Assessment: Vital Signs: Vital Signs Date Time Temp Pulse Resp B/P (MAP) Pulse Ox O2 Delivery O2 Flow Rate FiO2 10/09/18 15:36 98.5 64 18 137/71 (93) 93 Room Air I&O Intake and Output 10/09/18 07:01 Intake Total 1080 ml Balance 1080 ml Intake Oral 1080 ml # Voids 1 Current Medications: Meds: Current Medications Acetaminophen (Tylenol) 650 mg PRN Q6HRS PRN PO PAIN / TEMP; Start 09/25/18 at 16:15; Status Cancel Multi-Ingredient Ointment (Analgesic Meade) 1 mike PRN QID PRN TP MUSCLE PAIN; Start 09/25/18 at 16:15; Stop 10/09/18 at 19:25; Status DC Al Hydroxide/Mg Hydroxide (Mylanta Plus Xs) 15 ml PRN AFTMEALHC PRN PO DYSPEPSIA; Start 09/25/18 at 16:15; Stop 10/09/18 at 19:25; Status DC Magnesium Hydroxide (Milk Of Magnesia) 2,400 mg PRN QHS PRN PO CONSTIPATION; Start 09/25/18 at 16:15; Stop 10/09/18 at 19:25; Status DC Albuterol Sulfate (Ventolin Hfa Inhaler) 2 puff BID IH ; Start 09/26/18 at 09:00 ; Stop 09/26/18 at 09:00; Status DC Albuterol Sulfate (Ventolin Hfa Inhaler) 2 puff PRN Q4HRS PRN IH FOR ASTHMA; Start 09/25/18 at 22:30; Stop 09/25/18 at 22:57; Status DC Atorvastatin Calcium (Lipitor) 20 mg QHS PO Last administered on 10/08/18at 20: 09; Start 09/26/18 at 21:00; Stop 10/09/18 at 19:25; Status DC Cyclosporine (Restasis) 1 drop BID OU Last administered on 10/09/18at 07:48; Start 09/26/18 at 09:00; Stop 10/09/18 at 19:25; Status DC Diclofenac Sodium (Voltaren) 1 mike TID TP Last administered on 10/09/18at 14:15 ; Start 09/26/18 at 09:00; Stop 10/09/18 at 19:25; Status DC Guaifenesin (Mucinex Er) 600 mg PRN BID PRN PO COUGH; Start 09/25/18 at 22:30; Stop 10/09/18 at 19:25; Status DC Levothyroxine Sodium (Synthroid) 100 mcg DAILYAC PO Last administered on at 08:14; Start 09/26/18 at 07:30; Stop 10/02/18 at 08:30; Status DC Nitroglycerin (Nitrostat) 0.4 mg PRN Q5MIN PRN SL CHEST PAIN; Start 09/25/18 at 22:30; Stop 10/09/18 at 19:25; Status DC Tramadol HCl (Ultram) 50 mg PRN Q6HRS PRN PO PAIN Last administered on at 21:22; Start 09/25/18 at 22:30; Stop 10/09/18 at 19:25; Status DC Aspirin (Children'S Aspirin) 81 mg DAILYWBKFT PO Last administered on at 07:47; Start 09/26/18 at 08:00; Stop 10/09/18 at 19:25; Status DC Cetirizine HCl (ZyrTEC) 5 mg QHS PO Last administered on 10/08/18at 20:09; Start 09/26/18 at 21:00; Stop 10/09/18 at 19:25; Status DC Vitamin D (Vitamin D3) 5,000 unit DAILY PO Last administered on 10/01/18at 10: 09; Start 09/26/18 at 09:00; Stop 10/01/18 at 18:03; Status DC Docusate Sodium (Colace) 100 mg PRN DAILY PRN PO CONSTIPATION; Start 09/25/18 at 22:45; Stop 10/09/18 at 19:25; Status DC Loperamide HCl (Imodium) 2 mg PRN QID PRN PO DIARRHEA; Start 09/25/18 at 22:45 ; Stop 10/09/18 at 19:25; Status DC Multivitamins/ Calcium (Thera-M Plus) 1 tab DAILY PO Last administered on 10/09at 07:47; Start 09/26/18 at 09:00; Stop 10/09/18 at 19:25; Status DC Ondansetron HCl (Zofran Odt) 4 mg PRN Q6HRS PRN PO NAUSEA/VOMITING; Start 09/25 at 22:45; Stop 10/09/18 at 19:25; Status DC Oxybutynin Chloride (Ditropan) 5 mg BID PO Last administered on 10/09/18at 07: 47; Start 09/26/18 at 09:00; Stop 10/09/18 at 19:25; Status DC Pantoprazole Sodium (Protonix) 40 mg DAILYAC PO Last administered on at 07:47; Start 09/26/18 at 07:30; Stop 10/09/18 at 19:25; Status DC Zinc Oxide (Zinc Oxide 20% Topical) 1 mike PRN BID PRN TP DRY SKIN / SCALING Last administered on 09/26/18at 20:10; Start 09/25/18 at 23:00; Stop 10/09/18 at 19:25; Status DC Non-Formulary Medication (Dextroamphetamine/ Amphetamine (Adderall 20 Mg Tablet) ) 20 mg TID PO ; Start 09/26/18 at 09:00; Stop 09/29/18 at 08:06; Status DC Divalproex Sodium (Depakote Er) 500 mg DAILYWSUP PO Last administered on at 17:04; Start 09/26/18 at 17:00; Stop 10/06/18 at 17:52; Status DC Non-Formulary Medication (Sodium Oxybate (Xyrem)) 7 ml HS PO Last administered on 10/08/18at 20:09; Start 09/26/18 at 21:00; Stop 10/09/18 at 19:25; Status DC Venlafaxine HCl (Effexor Xr) 75 mg DAILY PO Last administered on 10/02/18at 08: 14; Start 09/26/18 at 09:00; Stop 10/02/18 at 10:14; Status DC Venlafaxine HCl (Effexor Xr) 150 mg DAILY PO Last administered on 10/02/18at 08 :18; Start 09/26/18 at 09:00; Stop 10/02/18 at 10:15; Status DC Albuterol Sulfate (Ventolin) 2.5 mg RTBID NEB Last administered on 10/09/18at 10:40; Start 09/26/18 at 08:00; Stop 10/09/18 at 19:25; Status DC Albuterol Sulfate (Ventolin) 2.5 mg PRN Q4HRS PRN NEB SHORTNESS OF BREATH; Start 09/25/18 at 23:00; Stop 10/09/18 at 19:25; Status DC Acetaminophen (Tylenol) 650 mg PRN Q4HRS PRN PO PAIN / TEMP; Start 09/29/18 at 01:30; Stop 10/09/18 at 19:25; Status DC Non-Formulary Medication (Dextroamphetamine/ Amphetamine (Adderall 20 Mg Tablet) ) 20 mg TID PO ; Start 09/29/18 at 09:00; Status UNV Methylphenidate HCl (Methylphenidate HCl) 20 mg [id number] PO Last administered on 10/08/18at 15:46; Start 09/29/18 at 09:00; Stop 10/08/18 at 18:49; Status DC Vitamin D (Vitamin D3) 50,000 unit WEEKLY PO ; Start 10/01/18 at 18:15; Stop 10/01/18 at 18:43; Status DC Vitamin D (Vitamin D3) 50,000 unit WEEKLY PO Last administered on 10/09/18at 07 :47; Start 10/02/18 at 09:00; Stop 10/09/18 at 19:25; Status DC Levothyroxine Sodium (Synthroid) 100 mcg DAILY06 PO Last administered on at 05:56; Start 10/03/18 at 06:00; Stop 10/09/18 at 19:25; Status DC Venlafaxine HCl (Effexor Xr) 225 mg DAILY PO Last administered on 10/09/18at 07 :47; Start 10/03/18 at 09:00; Stop 10/09/18 at 19:25; Status DC Benzonatate (Tessalon Perle) 100 mg [id number] PO Last administered on 10/09/18at 14:15; Start 10/06/18 at 21:00; Stop 10/09/18 at 19:25; Status DC Divalproex Sodium (Depakote Er) 500 mg HS PO Last administered on 10/08/18at 20 :08; Start 10/07/18 at 21:00; Stop 10/09/18 at 19:25; Status DC Divalproex Sodium (Depakote) 250 mg DAILY PO Last administered on 10/09/18at 07 :47; Start 10/07/18 at 09:00; Stop 10/09/18 at 19:25; Status DC Trazodone HCl (Desyrel) 50 mg QHS PO Last administered on 10/08/18at 20:08; Start 10/07/18 at 21:00; Stop 10/09/18 at 19:25; Status DC Trazodone HCl (Desyrel) 50 mg PRN QHS PRN PO INSOMNIA, MAY REPEAT X1; Start at 07:15; Stop 10/09/18 at 19:25; Status DC Methylphenidate HCl (Methylphenidate HCl) 20 mg 0600,1200 PO Last administered on 10/09/18at 11:55; Start 10/09/18 at 06:00; Stop 10/09/18 at 19:25; Status DC Active Scripts Active Reported Trazodone Hcl 50 Mg Tablet 50 Mg PO PRN QHS PRN Trazodone Hcl 50 Mg Tablet 50 Mg PO QHS Restasis (Cyclosporine) 1 Each Droperette 1 Each OP BID Venlafaxine Hcl Er (Venlafaxine Hcl) 225 Mg Tab.er.24 225 Mg PO DAILY Analgesic Meade (Methyl Salicylate/Menthol) 28 Gm Oint...g. 1 Gm TP PRN QID PRN Milk Of Magnesia (Magnesium Hydroxide) 2,400 Mg/10 Ml Oral.susp 2,400 Mg PO PRN QHS PRN Mag-Al Plus Suspension (Mag Hydrox/Al Hydrox/Simeth) 30 Ml Oral.susp 15 Ml PO PRN AFTMEALHC PRN Depakote Er (Divalproex Sodium) 250 Mg Tab.er.24h 250 Mg PO DAILY D3-50 (Cholecalciferol (Vitamin D3)) 50,000 Unit Capsule 50,000 Unit PO QTH Benzonatate 100 Mg Capsule 100 Mg PO [id number] Adderall 20 Mg Tablet (Dextroamphetamine/Amphetamine) 20 Mg Tablet 20 Mg PO 0600 , 1200 Tylenol (Acetaminophen) 325 Mg Tablet 650 Mg PO PRN Q4HRS PRN Loperamide (Loperamide Hcl) 2 Mg Capsule 2 Mg PO PRN QID PRN Colace (Docusate Sodium) 100 Mg Capsule 100 Mg PO PRN DAILY PRN Xyrem (Sodium Oxybate) 500 Mg/1 Ml Solution 7 Ml PO HS Ventolin Hfa Inhaler (Albuterol Sulfate) 18 Gm Hfa.aer.ad 2 Puff IH BID Thera-M (Multivits,Th W-Fe,Other Min) 1 Each Tablet 1 Tab PO DAILY Restasis (Cyclosporine) 1 Each Droperette 1 Drop EACHEYE BID Protonix (Pantoprazole Sodium) 20 Mg Tablet.dr 40 Mg PO DAILY Ditropan Xl (Oxybutynin Chloride) 10 Mg Tab.er.24 10 Mg PO DAILY Levothyroxine Sodium 100 Mcg Tablet 100 Mcg PO DAILYAC Cetirizine Hcl 10 Mg Tablet 5 Mg PO HS Atorvastatin Calcium 20 Mg Tablet 20 Mg PO QHS Aspirin 81 Mg Tab.chew 81 Mg PO DAILY Depakote Er (Divalproex Sodium) 500 Mg Tab.er.24h 500 Mg PO QHS Zinc Oxide 57 Gm Oint...g. 1 Mike TP PRN BID PRN Voltaren (Diclofenac Sodium) 100 Gm Gel..gram. 1 Gm TD TID Ventolin Hfa Inhaler (Albuterol Sulfate) 18 Gm Hfa.aer.ad 2 Puff IH PRN Q4HRS PRN Tramadol Hcl (Tramadol HCl) 50 Mg Tablet 50 Mg PO PRN Q6HRS PRN Ondansetron Odt (Ondansetron) 4 Mg Tab.rapdis 4 Mg PO PRN Q6HRS PRN Nitrostat (Nitroglycerin) 0.4 Mg Tab.subl 0.4 Mg SL PRN Q5MIN PRN Mucinex (Guaifenesin) 600 Mg Tablet.er 600 Mg PO PRN BID PRN I have reviewed the current psychotropics carefully including drug interactions. Risk benefit ratio favors no change other than as noted in my dictated progress note. Diagnosis: Problems: (1) Anxiety disorder (2) Impulse control disorder (3) Major depressive disorder, recurrent episode ANABELL MCDONALD MD Oct 09, 2018 22:49
--- NOTE | 2018-10-10 13:34 | DS ---
DATE OF DISCHARGE: 10/09/2018 DISCHARGE SUMMARY/PSYCHIATRIC PROGRESS NOTE This is a late entry 10/09/2018, covers elements not covered in my initial note. REASON FOR ADMISSION: Please refer to the admission history for details. Briefly, the patient is an 82-year-old female referred by her primary care physician from the [facility] on account of increasing delusions, having active hallucinations with voices telling her to harm herself. She has paranoid, withdrawn, lashing out at staff. She failed outpatient psychiatric interventions resulting in this referral. SIGNIFICANT FINDINGS AND CLINICAL COURSE: Following admission, the patient was seen daily individually by myself, followed medically per Dr. Castillo. She remains somewhat withdrawn. Dr. Campos did consult for her narcolepsy and adjusted medications for this. From a psychiatric standpoint, she seemed to respond to a combination of Depakote 250 mg a.m. and 500 at bedtime, Effexor ER 225 mg a day and she was on Ritalin 20 mg 0600, 1200; Xyrem 7 mL at bedtime, trazodone 50 mg at bedtime, may repeat x 1 for insomnia. Gradually, her mood was improving. Symptoms of pseudobulbar palsy better as well with improved mood lability. Valproic acid level was 35 despite being subtherapeutic, was clinically adequate. However, at this stage, she developed pneumonia and was transferred to [address] [place] [address] for medical/surgical management per Dr. Castillo. Prior to discharge on 10/09/2018, I met with her. REVIEW OF SYSTEMS: Ambulation impaired, in wheelchair, complains of symptoms of pneumonia. No CV, , GI system symptoms on review. MENTAL STATUS EXAM: Oriented to herself and situation. Speech has some latency, coherent. Abstraction fair, computation impaired, language function intact. Mood and affect was improved. LABORATORY DATA: Reviewed. IMPRESSION: Major depressive disorder, recurrent with psychotic features, in partial remission; cognitive disorder, unspecified; anxiety disorder, unspecified; pneumonia, narcolepsy. Rest unchanged from admission. DISCHARGE MEDICATIONS: Please refer to the MRAD. DISCHARGE INSTRUCTIONS: Psychiatric and medical followup on [address] [place] [address] and we would be happy to reassess whether she needs to be back on our unit once she is medically stable. Otherwise, arrangements were being made to transfer her to [facility] post discharged. Time for discharge day management greater than 30 minutes. MAN Bridger MCDONALD MD DR: MANNIE/kamini JOB#: [id number] / [id number]
--- NOTE | 2018-10-10 20:23 | PN ---
DATE: 10/08/2018 This late entry for 10/08/2018 and covers elements not covered in my initial note. SUBJECTIVE: I met with the patient in the evening. The patient slept 6-1/2 hours previous evening. Overall, fairly compliant, still has some mood lability. Dr. Campos did review her Xyrem for the narcolepsy and we will continue it unchanged. She stated she was on Adderall twice a day at home and I will defer this to Dr. Campos to make a decision whether to restart it or not in place of the Ritalin. REVIEW OF SYSTEMS: Ambulation impaired, in wheelchair. No CV, , pulmonary, eye, ENT system symptoms on review, does complain of some sedation. MENTAL STATUS EXAM: Oriented to herself and situation. Speech has some latency, coherent. Abstraction fair, computation impaired, language function intact. Mood and affect still somewhat depressed, anxious. LABORATORY DATA: Reviewed. IMPRESSION: Unchanged from initial note. PLAN: No change other than noted. ANABELL MCDONALD MD DR: MANNIE/kamini JOB#: [id number] / [id number]
--- NOTE | 2018-10-10 20:25 | PN ---
DATE: 10/09/2018 This is a late entry for 10/09/2018 and covers elements not covered in my initial note. SUBJECTIVE: I met with the patient in the evening, staffed at a treatment team meeting in the morning. Overall, the patient's chest x-ray was suggestive of pneumonia. We will defer to Dr. Campos. REVIEW OF SYSTEMS: Positive for impaired ambulation and some symptoms of pneumonia. No CV, , GI system symptoms on review. MENTAL STATUS EXAM: Oriented to herself and situation. Speech has some latency, coherent. Abstraction fair, computation impaired, language function intact. Mood and affect somewhat withdrawn. LABORATORY DATA: Reviewed. IMPRESSION: Unchanged from initial note. PLAN: No change from initial note. She may transfer to [facility] floor for pneumonia, but I will defer it to Dr. Castillo. MAN Bridger MCDONALD MD DR: MANNIE/kamini JOB#: [id number] / [id number]
== END 2018-10-09 18:45 | disposition short-term general hospital (02) | DRG 885 ==
LOC: ER 12:24 → GEROPSY 14:56
PROVIDERS: ADMIT Psychiatry & Neurology Psychiatry; ATTEND Psychiatry & Neurology Psychiatry
DX: F33.3 Major depressive disorder, recurrent, severe with psychotic symptoms (principal); J18.9 Pneumonia, unspecified organism; R45.851 Suicidal ideations; E03.9 Hypothyroidism, unspecified; E55.9 Vitamin D deficiency, unspecified; E78.5 Hyperlipidemia, unspecified; F01.50 Vascular dementia, unspecified severity, without behavioral disturbance, psychotic disturbance, mood disturbance, and anxiety; F09 Unspecified mental disorder due to known physiological condition; F41.9 Anxiety disorder, unspecified; F48.2 Pseudobulbar affect; M19.90 Unspecified osteoarthritis, unspecified site; F60.0 Paranoid personality disorder; Z66 Do not resuscitate; F63.9 Impulse disorder, unspecified; G47.00 Insomnia, unspecified; G47.411 Narcolepsy with cataplexy; I10 Essential (primary) hypertension; M81.0 Age-related osteoporosis without current pathological fracture; Z02.89 Encounter for other administrative examinations; Z79.899 Other long term (current) drug therapy; Z88.2 Allergy status to sulfonamides; Z88.8 Allergy status to other drugs, medicaments and biological substances
CPT/HCPCS: 36415; 71045; 80053; 80061; 80164; 81001; 82306; 82607; 83036; 83540; 83550; 83735; 84436; 84443; 84480; 85025; 86592; 87086; 93005; 94640; J7613; P9612; 97530; 99285-25

== ENCOUNTER 2018-10-09 19:31 | Inpatient (IN) | payer MEDICARE ==
[~2018-10-09] VITALS: Ht 149.9 cm; Wt 74.0 kg
[~2018-10-09 19:31] MED LIST: ACET325T9 PO; ALBU2.5V8 IH; ASPI-630 PO; ATOR20TA58 PO; BENZ-8 PO; CETI10TA16 PO; CHOL500016 PO; CHOL500021 PO; CYCL1DRO EACHEYE; CYCL1DRO OP; DEXT20TA2 PO; DICL100G18 TP; DIVA250T PO; DIVA500T4 PO; DOCU-109 PO; GUAI600T47 PO; LEVO100T5 PO; LOPE2CAP PO; MAG30ORA PO; MAGN2400 PO; METH29OI TP; MULT-503 PO; NITR0.4T SL; ONDA4TAB12 PO; OXYB10TA7 PO; PANT20TA58 PO; SODI500S4 PO; TRAM50TA PO; TRAZ-85 PO; VENL150C6 PO; VENL225T PO; VENL75CA6 PO; ZINC57OI TP
[2018-10-09 19:45] VITALS: BP 153/75
[2018-10-09] MEDS ORDERED: PIP/TAZO PER PHARMACY MC PRN (20:00)
[2018-10-09] MEDS ORDERED: VANCOMYCIN PER PHARMACY MC PRN (20:00)
[2018-10-09] MEDS ORDERED: ALBUTEROL SULFATE 2.5 MG/3 ML NEBU. ONE (20:34)
[2018-10-09] MEDS ORDERED: VANCOMYCIN 1.75 GM in IV NORMAL SALINE 500ML 500 ML IV ONE (21:15)
[2018-10-09 21:23] LABS: BASO # 0.1 x10^3/uL (0.0-0.2); BASO % 1 % (0-3); EOS # 0.3 x10^3/uL (0.0-0.7); EOS % 4 % (0-3); HEMATOCRIT 40.2 % (36.0-47.0); HEMOGLOBIN 13.6 g/dL (12.0-15.5); LYMPH # 1.4 x10^3/uL (1.0-4.8); LYMPH % 18 % (24-48); MEAN CORPUSCULAR HEMOGLOBIN 30 pg (25-35); MEAN CORPUSCULAR HGB CONC 34 g/dL (31-37); MEAN CORPUSCULAR VOLUME 89 fL (79-100); MONO # 1.2 x10^3/uL (0.0-1.1); MONO % 15 % (0-9); NEUT % 62 % (31-73); PLATELET COUNT 262 x10^3/uL (140-400); RED BLOOD COUNT 4.54 x10^6/uL (3.50-5.40); RED CELL DISTRIBUTION WIDTH 15.9 % (11.5-14.5)
[2018-10-09 21:42] LABS: ALBUMIN 2.6 g/dL (3.4-5.0); ALBUMIN/GLOBULIN RATIO 0.7 (1.0-1.7); CALCIUM 8.4 mg/dL (8.5-10.1); CREATININE 0.9 mg/dL (0.6-1.0); GFR 59.8; POTASSIUM 4.1 mmol/L (3.5-5.1); TOTAL BILIRUBIN 0.2 mg/dL (0.2-1.0); TOTAL PROTEIN 6.2 g/dL (6.4-8.2)
[2018-10-09] MEDS: PIPERACILLIN/TAZOBACTAM 3.375 GM in IV NORMAL SALINE 50ML 50 ML IV SCH (21:43)
[2018-10-09] MEDS ORDERED: ALBUTEROL SULFATE 8GM INHALER. IH PRN (22:45)
[2018-10-09] MEDS ORDERED: ACETAMINOPHEN 325 MG TABLET PO PRN (22:45)
[2018-10-09] MEDS ORDERED: METHYL SALICYLATE/MENTHOL TOPICAL OINTMENT 29GM TUBE. TP PRN (22:45)
[2018-10-09] MEDS ORDERED: NITROGLYCERIN SUBLINGUAL 0.4 MG BOTTLE OF 25. SL PRN (22:45)
[2018-10-09] MEDS ORDERED: NON FORMULARY ITEM (Dextroamphetamine/Amphetamine (Adderall 20 Mg Tablet) 20 MG) PO SCH (22:45)
[2018-10-09 22:47] VITALS: BP 113/72
[2018-10-09] MEDS ORDERED: ALBUTEROL SULFATE 2.5 MG/3 ML NEBU. NEB PRN (23:30)
[2018-10-09] MEDS ORDERED: MAG HYDROX/AL HYDROX/SIMETH 30 ML ORAL.SUSP PO PRN (23:30)
[2018-10-09] MEDS ORDERED: DOCUSATE SODIUM 100 MG CAPSULE PO PRN (23:30)
[2018-10-09] MEDS ORDERED: ONDANSETRON ODT 4 MG TAB.RAPDIS PO PRN (23:30)
[2018-10-09] MEDS ORDERED: MAGNESIUM HYDROXIDE 2,400 MG/30 ML ORAL.SUSP. PO PRN (23:30)
[2018-10-09] MEDS ORDERED: SODIUM OXYBATE PO SCH (23:30)
[2018-10-09] MEDS ORDERED: LOPERAMIDE 2 MG CAPSULE PO PRN (23:30)
[2018-10-09] MEDS ORDERED: traZODone 50 MG TABLET. PO PRN (23:45)
[2018-10-09] MEDS ORDERED: ZINC OXIDE 20% TOPICAL OINTMENT 28GM TUBE. TP PRN (23:45)
[2018-10-09] MEDS: DIVALPROEX ER 500 MG TAB.ER.24H PO SCH (23:49)
[2018-10-09] MEDS: BENZONATATE 100 MG CAPSULE. PO SCH (23:49)
[2018-10-09] MEDS: CETIRIZINE HCL 10 MG TABLET PO SCH (23:49)
[2018-10-09] MEDS: traZODone 50 MG TABLET. PO SCH (23:49)
[2018-10-09] MEDS: ATORVASTATIN CALCIUM 20 MG TABLET PO SCH (23:49)
[2018-10-09] MEDS: OXYBUTYNIN CHLORIDE 5 MG TABLET PO SCH (23:49)
[2018-10-09] MEDS: SODIUM OXYBATE PO SCH (23:50)
[2018-10-10] MEDS: PIPERACILLIN/TAZOBACTAM 3.375 GM in IV NORMAL SALINE 50ML 50 ML IV SCH ×4 (04:15→21:53)
[2018-10-10 05:36] VITALS: BP 110/69
[2018-10-10] MEDS: LEVOTHYROXINE 100 MCG TABLET PO SCH (06:13)
[2018-10-10] MEDS: METHYLPHENIDATE HCL 5 MG TABLET PO SCH ×2 (06:21→12:54)
[2018-10-10] MEDS: PANTOPRAZOLE 40 MG TABLET. PO SCH (07:39)
[2018-10-10] MEDS: ASPIRIN 81 MG TAB.CHEW PO SCH (08:32)
[2018-10-10] MEDS: OXYBUTYNIN CHLORIDE 5 MG TABLET PO SCH ×2 (08:32→20:36)
[2018-10-10] MEDS: BENZONATATE 100 MG CAPSULE. PO SCH ×3 (08:32→20:36)
[2018-10-10] MEDS: VENLAFAXINE 75 MG TABLET. PO SCH ×3 (08:33→20:36)
[2018-10-10] MEDS: LACTOBACILLUS RHAMNOSUS GG 1 CAPSULE. PO SCH ×2 (08:36→20:36)
[2018-10-10] MEDS: DIVALPROEX ER 250 MG TAB.ER.24H. PO SCH (08:36)
[2018-10-10] MEDS: MULTIVITAMIN with MINERAL TABLET. PO SCH (08:37)
[2018-10-10] MEDS: DICLOFENAC SODIUM 1% TOPICAL GEL 100GM TUBE. TP SCH ×3 (09:00→20:40)
[2018-10-10] MEDS ORDERED: OXYBUTYNIN CHLORIDE 5 MG TABLET PO SCH (09:00)
[2018-10-10] MEDS ORDERED: ALBUTEROL SULFATE 8GM INHALER. IH SCH (09:00)
[2018-10-10] MEDS ORDERED: BENZONATATE 100 MG CAPSULE. PO SCH (09:00)
[2018-10-10] MEDS: cycloSPORINE 0.05% OPTH 1 DROP DROPERETTE OU SCH ×2 (09:54→20:35)
[2018-10-10 10:58] VITALS: BP 121/63
[2018-10-10] MEDS: ALBUTEROL SULFATE 2.5 MG/3 ML NEBU. NEB SCH ×2 (11:00→20:11)
[2018-10-10 15:01] VITALS: BP 144/79
[2018-10-10 19:33] VITALS: BP 147/73
[2018-10-10] MEDS: DIVALPROEX ER 500 MG TAB.ER.24H PO SCH (20:35)
[2018-10-10] MEDS: traZODone 50 MG TABLET. PO SCH (20:37)
[2018-10-10] MEDS: ATORVASTATIN CALCIUM 20 MG TABLET PO SCH (20:37)
[2018-10-10] MEDS: CETIRIZINE HCL 10 MG TABLET PO SCH (20:37)
[2018-10-10] MEDS: SODIUM OXYBATE PO SCH (20:38)
[2018-10-10] MEDS: VANCOMYCIN 1 GM in IV NORMAL SALINE 250ML 250 ML IV SCH (20:40)
[2018-10-10] MEDS ORDERED: CETIRIZINE HCL 10 MG TABLET PO SCH (21:00)
[2018-10-10] MEDS ORDERED: ATORVASTATIN CALCIUM 20 MG TABLET PO SCH (21:00)
--- NOTE | 2018-10-10 21:00 | PN ---
DATE: 10/10/2018 SUBJECTIVE: The patient is sitting comfortably in her chair, in no apparent distress. She continued to have cough that was productive. Denied any chest pain. Denied any chills, rigors, or fever. Denied any shortness of breath. OBJECTIVE: GENERAL: When I examined her, she looked well, slightly pale, no jaundice, cyanosis, or thyromegaly. No jugular venous distension. No lower limb edema. VITAL SIGNS: Her heart rate was 66, blood pressure was 144/79, temperature was 98, respiratory rate 20, and oxygen saturation was 96%. HEAD, EYES, EARS, NOSE AND THROAT: Normocephalic, atraumatic. NECK: Supple. HEART: Showed normal first and second heart sounds with no gallop, rub or murmur. CHEST: Clear to auscultation. No crepitation or rhonchi. ABDOMEN: Distended, soft, nontender. No guarding or rigidity. No organomegaly. All hernial orifices intact. Bowel sounds normal. NEUROLOGIC: She is demented, but without any obvious lateralizing sign. All her cranial nerves intact. She moves extremities without difficulty. She ambulates with a walker. Her intake over the last 24 hours was 713. output was recorded. LABORATORY DATA: Her lab work this morning showed a white cell count of 8000, hemoglobin 13.6, hematocrit 40, MCV 89, platelet count 262,000. Her serum sodium was 141, potassium 4.1, chloride 105, bicarbonate 30, anion gap of 6, BUN 18, creatinine 0.9, estimated GFR was 60 mL per minute. Her glucose 99. Lactic acid was 1.1. ASSESSMENT AND PLAN: Community-acquired pneumonia for which she was started on IV vancomycin and Zosyn. Other medical problems include narcolepsy, cataplexy, hypothyroidism, osteoarthritis, osteoporosis, hyperlipidemia, hypertension, vitamin D deficiency, and possible cerebrovascular accident. HIREN CAN MD DR: DEL/kamini JOB#: [id number] / [id number]
[2018-10-10 22:43] VITALS: BP 124/76
--- NOTE | 2018-10-11 02:34 | HP ---
ADMIT DATE: 10/09/2018 HISTORY OF PRESENT ILLNESS: The patient is an 82-year-old female patient whom I have seen yesterday [facility] at the request of the nursing staff. She apparently has been having recurrent bouts of cough with yellowish to greenish sputum. Her chest x-ray showed she has crepitation in both sides. Her chest x-ray showed that she has infiltrate suggestive of pneumonia and therefore, the patient was transferred to [address] [place] [address] for inpatient treatment for healthcare-associated pneumonia. The patient herself is very demented and does not really give useful information and she is not really showing any behavioral disturbances. PAST MEDICAL HISTORY: Significant for narcolepsy, cataplexy, hypothyroidism, osteoarthritis, osteoporosis, hyperlipidemia, hypertension, vitamin D deficiency, and possible CVA. PAST SURGICAL HISTORY: Unremarkable. FAMILY HISTORY: Noncontributory. SOCIAL HISTORY: She lives at the [facility] at [facility]. She has 2 sons and 1 daughter. She does not smoke or drink alcohol. 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 ALLERGIES: SHE IS ALLERGIC TO SULFA DRUGS, SHRIMPS, TETANUS TOXOID AND ADSORBENT. MEDICATIONS: She is currently on following medications: She is on cetirizine 5 mg at bedtime, Ventolin inhaler 2 puffs every 4 hours or albuterol sulfate, atorvastatin 20 mg at bedtime, nitroglycerin 0.4 mg sublingually every 5 minutes x 3, aspirin 81 mg once a day, diclofenac sodium 100 grams gel topically 3 times a day, analgesic balm 1 gram topically 4 times a day, tramadol 50 mg every 6 hours, acetaminophen 650 mg p.o. q.4 hours, p.r.n., divalproex sodium 500 mg at bedtime, divalproex 250 mg, trazodone 50 mg at bedtime and trazodone 50 mg as needed, venlafaxine 225 mg daily and dextromethorphan/amphetamine or Adderall 20 mg p.o. twice a day, sodium oxybate 500 mg 30 mL solution 7 mL at bedtime, antitussives or benzonatate 100 mg 3 times a day, guaifenesin 600 mg twice a day, cyclosporine or Restasis 1 drop to both eyes twice a day, Mylanta 15 mL after meals, loperamide 2 mg 4 times a day, Colace 100 mg daily, magnesium hydroxide or milk of magnesia 30 mL p.o. daily p.r.n. for constipation, Protonix 40 mg once a day, levothyroxine sodium 100 mcg p.o. daily, zinc oxide 1 application twice a day, oxybutynin chloride 10 mg daily, cholecalciferol vitamin D 50,000 international unit once a week, multivitamin with mineral 1 tablet once a day. REVIEW OF SYSTEMS: Unobtainable. PHYSICAL EXAMINATION: GENERAL: When I examined her, she looked somewhat pale, no jaundice, cyanosis, or thyromegaly. No jugular venous distension. No limb edema. VITAL SIGNS: Her heart rate was 84, blood pressure was 113/72, temperature was 98, respiratory rate was 24, and oxygen saturation was 96%. HEAD, EYES, EARS, NOSE, AND THROAT: Showed normocephalic, atraumatic. NECK: Supple. HEART: Showed normal first and second heart sounds with no gallop, rub or murmur. CHEST: Clear to auscultation. No crepitation or rhonchi. Chest shows central trachea, equal bilateral expansion, air entry, vesicular sounds with crepitation in both sides, more on the left side. ABDOMEN: Slightly distended, soft, nontender. NEUROLOGIC: She was demented without any obvious lateralizing sign. All cranial nerves intact. She moves upper extremities to much good extent than lower extremities. She is mostly bed bound. LABORATORY DATA: On admission showed that her white cell count was 8000, hemoglobin 13.6, hematocrit 40, MCV 89 and platelet count of 262,000. Her chemistry showed a serum sodium of 141, potassium 4.1, chloride was 105, bicarbonate 30, anion gap of 6, BUN 18, creatinine 0.9, estimated GFR was 59 mL per minute. Her glucose was 99, calcium was 8.4. Her lactic acid was only 1.1%. Total bilirubin, AST, ALT, alkaline phosphatase were normal. Total protein was 6.2, albumin 2.6. Her chest x-ray showed that patchy opacities in the medial right lung base and left lung base may represent developing consolidative process such as pneumonia or atelectasis, we have similar appearance. The patient was transferred to [address] [place] [address], was started on Zosyn and vancomycin together with or other medication. We will follow her closely and decide on further management accordingly. HIREN CAN MD DR: Cat JOB#: [id number] / [id number]
[2018-10-11] MEDS: traMADol 50 MG TABLET PO PRN (03:51)
[2018-10-11] MEDS: PIPERACILLIN/TAZOBACTAM 3.375 GM in IV NORMAL SALINE 50ML 50 ML IV SCH ×4 (03:51→22:47)
[2018-10-11 05:15] VITALS: BP 130/74
[2018-10-11 05:46] LABS: HEMATOCRIT 38.5 % (36.0-47.0); HEMOGLOBIN 12.9 g/dL (12.0-15.5); RED BLOOD COUNT 4.35 x10^6/uL (3.50-5.40); RED CELL DISTRIBUTION WIDTH 15.9 % (11.5-14.5); WHITE BLOOD COUNT 7.6 x10^3/uL (4.0-11.0)
[2018-10-11] MEDS: LEVOTHYROXINE 100 MCG TABLET PO SCH (05:55)
[2018-10-11] MEDS: METHYLPHENIDATE HCL 5 MG TABLET PO SCH ×2 (05:55→13:20)
[2018-10-11 06:24] LABS: ALBUMIN 2.4 g/dL (3.4-5.0); ALBUMIN/GLOBULIN RATIO 0.8 (1.0-1.7); CREATININE 0.9 mg/dL (0.6-1.0); GFR 59.8; POTASSIUM 3.9 mmol/L (3.5-5.1); TOTAL BILIRUBIN 0.3 mg/dL (0.2-1.0); TOTAL PROTEIN 5.6 g/dL (6.4-8.2)
[2018-10-11] MEDS: LACTOBACILLUS RHAMNOSUS GG 1 CAPSULE. PO SCH ×2 (08:04→20:49)
[2018-10-11] MEDS: PANTOPRAZOLE 40 MG TABLET. PO SCH (08:04)
[2018-10-11] MEDS: MULTIVITAMIN with MINERAL TABLET. PO SCH (08:04)
[2018-10-11] MEDS: DIVALPROEX ER 250 MG TAB.ER.24H. PO SCH (08:04)
[2018-10-11] MEDS: BENZONATATE 100 MG CAPSULE. PO SCH ×3 (08:04→20:49)
[2018-10-11] MEDS: OXYBUTYNIN CHLORIDE 5 MG TABLET PO SCH ×2 (08:05→20:50)
[2018-10-11] MEDS: ASPIRIN 81 MG TAB.CHEW PO SCH (08:05)
[2018-10-11] MEDS: VENLAFAXINE 75 MG TABLET. PO SCH ×3 (08:05→20:49)
[2018-10-11] MEDS: cycloSPORINE 0.05% OPTH 1 DROP DROPERETTE OU SCH ×2 (08:07→20:48)
[2018-10-11] MEDS: DICLOFENAC SODIUM 1% TOPICAL GEL 100GM TUBE. TP SCH ×3 (09:00→20:50)
[2018-10-11] MEDS: ALBUTEROL SULFATE 2.5 MG/3 ML NEBU. NEB SCH ×2 (09:30→20:00)
[2018-10-11 11:21] VITALS: BP 124/70
[2018-10-11 15:56] VITALS: BP 136/76
--- NOTE | 2018-10-11 18:38 | PN ---
DATE: 10/11/2018 SUBJECTIVE: The patient is resting, sitting comfortably in her chair, in no apparent distress. She continued to complain of cough with yellowish sputum. However, generally she is feeling much better. She has been up and about. OBJECTIVE: GENERAL: When I examined her, she looked well and was clearly in no apparent respiratory distress, pale, but no jaundice, cyanosis, or thyromegaly. No jugular venous distention. No lower limb edema. VITAL SIGNS: Her heart rate was 67, blood pressure was 130/74, temperature was 98.2, respiratory rate was 18, and oxygen saturation was 95% on room air. HEAD, EYES, EARS, NOSE AND THROAT: Showed normocephalic, atraumatic. NECK: Supple. HEART: Showed normal first and second heart sounds with no gallop, rub or murmur. CHEST: Clear to auscultation. No crepitation or rhonchi. ABDOMEN: Distended, soft, nontender. NEUROLOGIC: She is awake, alert, responding appropriately. All cranial nerves are intact. She moves extremities without difficulty. She ambulates with a walker. Her intake was 1550, output was 600. LABORATORY DATA: As of this morning, her white cell count was 7600, hemoglobin 13, hematocrit 39, MCV 89, and platelet count 235,000. Serum sodium was 144, potassium 3.9, chloride 108, bicarbonate 29, anion gap of 7, BUN 16, creatinine 0.9, estimated GFR was 60 mL per minute. Her calcium was 8. Total bilirubin, AST, ALT, alkaline phosphatase were normal. Total protein was 6.6, albumin 2.4. ASSESSMENT: 1. Healthcare-associated pneumonia for which she is on IV Zosyn and vancomycin. 2. Other medical problems include narcolepsy with cataplexy. 3. Hypothyroidism. 4. Osteoarthritis and osteoporosis. 5. Hyperlipidemia. 6. Hypertension. 7. Vitamin D deficiency. PLAN: Continue with the IV antibiotic. Her blood culture so far negative. If the cultures continue to be negative tomorrow, we will discontinue the vancomycin and hoping to discharge her back on Saturday. HIREN CAN MD DR: DEL/kamini JOB#: [id number] / [id number]
[2018-10-11 19:22] VITALS: BP 152/79
[2018-10-11] MEDS: VANCOMYCIN 1 GM in IV NORMAL SALINE 250ML 250 ML IV SCH (20:48)
[2018-10-11] MEDS: CETIRIZINE HCL 10 MG TABLET PO SCH (20:49)
[2018-10-11] MEDS: traZODone 50 MG TABLET. PO SCH (20:49)
[2018-10-11] MEDS: ATORVASTATIN CALCIUM 20 MG TABLET PO SCH (20:49)
[2018-10-11] MEDS: DIVALPROEX ER 500 MG TAB.ER.24H PO SCH (20:50)
[2018-10-11 21:21] LABS: VANC TR 10.9 mcg/mL (10.0-20.0)
[2018-10-11] MEDS: SODIUM OXYBATE PO SCH (22:46)
[2018-10-11 22:58] VITALS: BP 118/70
--- NOTE | 2018-10-12 00:53 | PN ---
DATE: 10/11/2018 PSYCHIATRIC PROGRESS NOTE This note covers elements not covered in my initial note 10/11/2018. SUBJECTIVE: The patient was seen individually on the evening of 10/11/2018 in room 109, [address]. She has been cooperative in the unit, somewhat tired, but has not slept during the day because she states she wants to have a good night sleep at night. She states she talked to her son who is the [employer] [facility], but he could not visit her today because her [id number] had cardiac problems and had to have 2 stents placed in her at the [facility]. The patient was quite coherent describing all of this. REVIEW OF SYSTEMS: Ambulation impaired, some shortness of breath. No CV, GI, , eye system symptoms on review. MENTAL STATUS EXAM: Oriented to herself and situation. Speech is coherent, has some latency. Abstraction fair, computation impaired, language function intact, attention span short. Mood and affect remain somewhat anxious, dysphoric at times. LABORATORY DATA: Reviewed. IMPRESSION: Unchanged from initial note. PLAN: No change from initial note. She does have a diagnosis of major depressive disorder, recurrent with psychotic features; cognitive disorder, unspecified; anxiety disorder, unspecified. ANABELL MCDONALD MD DR: MANNIE/kamini JOB#: [id number] / [id number]
--- NOTE | 2018-10-12 03:33 | PN ---
DATE: 10/10/2018 PSYCHIATRIC PROGRESS NOTE This is a late entry of 10/10/2018 covers elements not covered in my initial note. SUBJECTIVE: I met with the patient in the evening, bed [address], [address] [place] [address], [facility], as requested by Dr. 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 She was an inpatient on the [facility], referred from the nursing facility for increased agitation, disruptive behaviors, then developed pneumonia, and transferred to [address] [place] [address]. REVIEW OF SYSTEMS: Ambulation impaired, some difficulty with breathing. No CV, GI, , eye, ENT system symptoms on review. MENTAL STATUS EXAM: The patient is oriented to herself and situation. Speech is coherent, has some latency. Abstraction fair, computation impaired, language function intact, attention span short. Mood and affect remain somewhat dysphoric, anxious. LABORATORY DATA: Reviewed. IMPRESSION: Major depressive disorder, recurrent; anxiety disorder, unspecified; cognitive disorder, unspecified. PLAN: No change from a psychiatric standpoint from my initial note. We will continue current psychotropics. MAN Bridger MCDONALD MD DR: MANNIE/kamini JOB#: [id number] / [id number]
[2018-10-12] MEDS: PIPERACILLIN/TAZOBACTAM 3.375 GM in IV NORMAL SALINE 50ML 50 ML IV SCH ×3 (04:20→16:32)
[2018-10-12] MEDS: LEVOTHYROXINE 100 MCG TABLET PO SCH (06:16)
[2018-10-12] MEDS: METHYLPHENIDATE HCL 5 MG TABLET PO SCH ×2 (06:16→14:34)
[2018-10-12 06:24] VITALS: BP 126/72
[2018-10-12] MEDS: ASPIRIN 81 MG TAB.CHEW PO SCH (08:38)
[2018-10-12] MEDS: OXYBUTYNIN CHLORIDE 5 MG TABLET PO SCH ×2 (08:38→21:11)
[2018-10-12] MEDS: BENZONATATE 100 MG CAPSULE. PO SCH ×3 (08:38→21:10)
[2018-10-12] MEDS: DIVALPROEX ER 250 MG TAB.ER.24H. PO SCH (08:38)
[2018-10-12] MEDS: LACTOBACILLUS RHAMNOSUS GG 1 CAPSULE. PO SCH ×2 (08:38→21:10)
[2018-10-12] MEDS: MULTIVITAMIN with MINERAL TABLET. PO SCH (08:38)
[2018-10-12] MEDS: cycloSPORINE 0.05% OPTH 1 DROP DROPERETTE OU SCH ×2 (08:38→21:10)
[2018-10-12] MEDS: PANTOPRAZOLE 40 MG TABLET. PO SCH (08:39)
[2018-10-12] MEDS: VENLAFAXINE 75 MG TABLET. PO SCH ×3 (08:39→21:10)
[2018-10-12] MEDS: DICLOFENAC SODIUM 1% TOPICAL GEL 100GM TUBE. TP SCH ×3 (08:39→21:16)
[2018-10-12] MEDS: ALBUTEROL SULFATE 2.5 MG/3 ML NEBU. NEB SCH ×2 (09:29→19:59)
[2018-10-12 11:13] VITALS: BP 103/56
[2018-10-12 14:48] VITALS: BP 128/73
--- NOTE | 2018-10-12 16:02 | PN ---
DATE: 10/12/2018 SUBJECTIVE: The patient is resting, slightly propped up in bed, in no apparent distress. She continued to have some cough with scanty sputum. Denied any chest pain, no shortness of breath. The nursing staff did not voice any concern that she had an uneventful night. PHYSICAL EXAMINATION: GENERAL: When I examined her, she looked pale, but no jaundice, cyanosis, or thyromegaly. No jugular venous distension. No lower limb edema. VITAL SIGNS: Her heart rate was 72, blood pressure 126/72, temperature was 97.9, respiratory rate 18, and oxygen saturation was 97% on room air. HEAD, EYES, EARS, NOSE AND THROAT: Showed normocephalic, atraumatic. NECK: Supple. HEART: Showed normal first and second heart sounds. No gallop, rub or murmur. CHEST: Clear to auscultation. No crepitation or rhonchi. ABDOMEN: Distended, soft, nontender. No guarding or rigidity. No organomegaly. All hernial orifice intact. Bowel sounds normal. NEUROLOGIC: She is awake, alert, responding appropriately. All cranial nerves intact. She moves all extremities without difficulty. She ambulates with a walker. Her intake was 1500, output was 600. LABORATORY DATA: She had no lab work done this morning. ASSESSMENT: 1. Healthcare-associated pneumonia for which she is currently on Zyvox, Zosyn and vancomycin. 2. Other medical problems include: a. Narcolepsy and cataplexy. b. Hypothyroidism. c. Osteoarthritis and osteoporosis. d. Hyperlipidemia. e. Hypertension. f. Vitamin D deficiency. g. Cognitive impairment. PLAN: To discontinue vancomycin as her blood culture has been negative for the last 2 days. Continue with Zosyn today. Tomorrow we will switch her to oral Augmentin and she can be discharged back to her nursing home facility. HIREN CAN MD DR: DEL/kamini JOB#: [id number] / [id number]
[2018-10-12 18:52] VITALS: BP 142/67
[2018-10-12] MEDS: CETIRIZINE HCL 10 MG TABLET PO SCH (21:10)
[2018-10-12] MEDS: traZODone 50 MG TABLET. PO SCH (21:10)
[2018-10-12] MEDS: ATORVASTATIN CALCIUM 20 MG TABLET PO SCH (21:10)
[2018-10-12] MEDS: DIVALPROEX ER 500 MG TAB.ER.24H PO SCH (21:10)
[2018-10-12] MEDS: SODIUM OXYBATE PO SCH (21:11)
--- NOTE | 2018-10-12 21:43 | PDOC ---
Exam Note: Lm Note: Please also refer to the separate dictated note~for this date of service dictated separately.~Patient seen individually. Discussed the patient with Nursing staff reviewed the chart.~Reviewed interim history and current functioning. Reviewed vital signs,~Labs/ Radiology~and current medications noted below. Continue current treatment with the changes noted in the dictated addendum note Assessment: Vital Signs: Vital Signs Date Time Temp Pulse Resp B/P (MAP) Pulse Ox O2 Delivery O2 Flow Rate FiO2 10/12/18 20:00 98 Room Air 10/12/18 18:52 98.2 65 142/67 (92) 10/12/18 14:48 18 10/09/18 19:45 I&O Intake and Output 10/12/18 07:01 Intake Total 1777 ml Output Total 1 ml Balance 1776 ml Intake Oral 1020 ml IV Total 100 ml Blood Product IV Normal Saline Flush 657 ml Stool Total 1 ml # Voids 2 # Bowel Movements 2 Current Medications: Meds: Current Medications Vancomycin HCl (Vanco Per Pharmacy) 1 each PRN DAILY PRN MC SEE COMMENTS Last administered on 10/09/18at 22:13; Start 10/09/18 at 20:00; Stop 10/12/18 at 11 :19; Status DC Piperacillin Sod/ Tazobactam Sod (Zosyn Per Pharmacy) 1 each PRN DAILY PRN MC SEE COMMENTS Last administered on 10/09/18at 22:13; Start 10/09/18 at 20:00 Albuterol Sulfate (Ventolin) 2.5 mg STK-MED ONCE .ROUTE Last administered on at 21:10; Start 10/09/18 at 20:34; Stop 10/09/18 at 20:36; Status DC Piperacillin Sod/ Tazobactam Sod 3.375 gm/Sodium Chloride 50 ml @ 100 mls/hr Q6H IV Last administered on 10/12/18at 16:32; Start 10/09/18 at 22:00 Vancomycin HCl 1.75 gm/Sodium Chloride 500 ml @ 250 mls/hr 1X ONCE IV Last administered on 10/09/18at 21:43; Start 10/09/18 at 21:15; Stop 10/09/18 at 23 :14; Status DC Vancomycin HCl 1 gm/Sodium Chloride 250 ml @ 250 mls/hr Q24H IV Last administered on 10/11/18at 20:48; Start 10/10/18 at 21:00; Stop 10/12/18 at 11 :13; Status DC Vancomycin HCl (Vancomycin Trough Level) 1 each 1X ONCE MC Last administered on 10/11/18at 20:30; Start 10/11/18 at 20:30; Stop 10/11/18 at 20:31; Status DC Lactobacillus Rhamnosus (Culturelle) 1 cap BID PO Last administered on at 21:10; Start 10/10/18 at 09:00 Acetaminophen (Tylenol) 650 mg PRN Q4HRS PRN PO PAIN / TEMP; Start 10/09/18 at 22:45 Albuterol Sulfate (Ventolin Hfa Inhaler) 2 puff BID IH ; Start 10/10/18 at 09: 00; Status UNV Albuterol Sulfate (Ventolin Hfa Inhaler) 2 puff PRN Q4HRS PRN IH FOR ASTHMA; Start 10/09/18 at 22:45; Status UNV Atorvastatin Calcium (Lipitor) 20 mg QHS PO ; Start 10/10/18 at 21:00; Stop at 21:00; Status DC Vitamin D (Vitamin D3) 50,000 unit QTH PO ; Start 10/16/18 at 16:00 Cyclosporine (Restasis) 1 drop BID OU Last administered on 10/12/18at 21:10; Start 10/10/18 at 09:00 Diclofenac Sodium (Voltaren) 1 mike TID TP Last administered on 10/12/18at 21:16 ; Start 10/10/18 at 09:00 Guaifenesin (Mucinex Er) 600 mg PRN BID PRN PO COUGH; Start 10/09/18 at 22:45 Levothyroxine Sodium (Synthroid) 100 mcg DAILY06 PO Last administered on at 06:16; Start 10/10/18 at 06:00 Multi-Ingredient Ointment (Analgesic [place]) 1 mike PRN QID PRN TP MUSCLE PAIN; Start 10/09/18 at 22:45 Nitroglycerin (Nitrostat) 0.4 mg PRN Q5MIN PRN SL CHEST PAIN; Start 10/09/18 at 22:45 Tramadol HCl (Ultram) 50 mg PRN Q6HRS PRN PO PAIN Last administered on at 03:51; Start 10/09/18 at 22:45 Aspirin (Children'S Aspirin) 81 mg DAILYWBKFT PO Last administered on at 08:38; Start 10/10/18 at 08:00 Benzonatate (Tessalon Perle) 100 mg [id number] PO ; Start 10/10/18 at 09:00; Stop 10/10/18 at 09:00; Status DC Cetirizine HCl (ZyrTEC) 10 mg HS PO ; Start 10/10/18 at 21:00; Stop 10/10/18 at 21:00; Status DC Non-Formulary Medication (Dextroamphetamine/ Amphetamine (Adderall 20 Mg Tablet) ) 20 mg 0600, 1200 PO ; Start 10/09/18 at 22:45; Status UNV Divalproex Sodium (Depakote Er) 250 mg DAILY PO Last administered on at 08:38; Start 10/10/18 at 09:00 Divalproex Sodium (Depakote Er) 500 mg HS PO Last administered on 10/12/18at 21 :10; Start 10/09/18 at 23:30 Docusate Sodium (Colace) 100 mg PRN DAILY PRN PO CONSTIPATION Last administered on 10/11/18at 08:04; Start 10/09/18 at 23:30 Loperamide HCl (Imodium) 2 mg PRN QID PRN PO DIARRHEA; Start 10/09/18 at 23:30 Al Hydroxide/Mg Hydroxide (Mylanta Plus Xs) 15 ml PRN AFTMEALHC PRN PO DYSPEPSIA; Start 10/09/18 at 23:30 Magnesium Hydroxide (Milk Of Magnesia) 2,400 mg PRN QHS PRN PO CONSTIPATION; Start 10/09/18 at 23:30 Multivitamins/ Calcium (Thera-M Plus) 1 tab DAILY PO Last administered on 10/12at 08:38; Start 10/10/18 at 09:00 Ondansetron HCl (Zofran Odt) 4 mg PRN Q6HRS PRN PO NAUSEA/VOMITING; Start at 23:30 Oxybutynin Chloride (Ditropan) 5 mg BID PO ; Start 10/10/18 at 09:00; Stop at 09:00; Status DC Pantoprazole Sodium (Protonix) 40 mg DAILYAC PO Last administered on at 08:39; Start 10/10/18 at 07:30 Non-Formulary Medication (Sodium Oxybate (Xyrem)) 7 ml HS PO Last administered on 10/12/18at 21:11; Start 10/09/18 at 23:30 Trazodone HCl (Desyrel) 50 mg PRN QHS PRN PO INSOMNIA; Start 10/09/18 at 23:45 Trazodone HCl (Desyrel) 50 mg HS PO Last administered on 10/12/18 21:10; Start 10/09/18 at 23:45 Venlafaxine HCl (Effexor) 75 mg TID PO Last administered on 10/12/18 21:10; Start 10/10/18 at 09:00 Zinc Oxide (Zinc Oxide 20% Topical) 1 mike PRN BID PRN TP RASH; Start 10/09/18 at 23:45 Albuterol Sulfate (Ventolin) 2.5 mg PRN Q4HRS PRN NEB SHORTNESS OF BREATH; Start 10/09/18 at 23:30 Albuterol Sulfate (Ventolin) 2.5 mg RTBID NEB Last administered on 10/12/18at 19:59; Start 10/10/18 at 08:00 Atorvastatin Calcium (Lipitor) 20 mg QHS PO Last administered on 10/12/18 21: 10; Start 10/09/18 at 23:30 Benzonatate (Tessalon Perle) 100 mg [id number] PO Last administered on 10/12/18 21:10; Start 10/09/18 at 23:30 Cetirizine HCl (ZyrTEC) 5 mg HS PO Last administered on 10/12/18 21:10; Start 10/09/18 at 23:30 Oxybutynin Chloride (Ditropan) 5 mg BID PO Last administered on 10/12/18at 21: 11; Start 10/09/18 at 23:30 Non-Formulary Medication (Sodium Oxybate (Xyrem)) 7 ml HS PO ; Start 10/09/18 at 23:30; Status UNV Methylphenidate HCl (Methylphenidate HCl) 20 mg 0600,1200 PO Last administered on 10/12/18at 14:34; Start 10/10/18 at 06:00 Active Scripts Active Reported Trazodone Hcl 50 Mg Tablet 50 Mg PO PRN QHS PRN Trazodone Hcl 50 Mg Tablet 50 Mg PO QHS Venlafaxine Hcl Er (Venlafaxine Hcl) 225 Mg Tab.er.24 225 Mg PO DAILY Analgesic [place] (Methyl Salicylate/Menthol) 28 Gm Oint...g. 1 Gm TP PRN QID PRN Milk Of Magnesia (Magnesium Hydroxide) 2,400 Mg/10 Ml Oral.susp 2,400 Mg PO PRN QHS PRN Mag-Al Plus Suspension (Mag Hydrox/Al Hydrox/Simeth) 30 Ml Oral.susp 15 Ml PO PRN AFTMEALHC PRN Depakote Er (Divalproex Sodium) 250 Mg Tab.er.24h 250 Mg PO DAILY D3-50 (Cholecalciferol (Vitamin D3)) 50,000 Unit Capsule 50,000 Unit PO QTH Benzonatate 100 Mg Capsule 100 Mg PO [id number] Adderall 20 Mg Tablet (Dextroamphetamine/Amphetamine) 20 Mg Tablet 20 Mg PO 0600 , 1200 Tylenol (Acetaminophen) 325 Mg Tablet 650 Mg PO PRN Q4HRS PRN Loperamide (Loperamide Hcl) 2 Mg Capsule 2 Mg PO PRN QID PRN Colace (Docusate Sodium) 100 Mg Capsule 100 Mg PO PRN DAILY PRN Xyrem (Sodium Oxybate) 500 Mg/1 Ml Solution 7 Ml PO HS Ventolin Hfa Inhaler (Albuterol Sulfate) 18 Gm Hfa.aer.ad 2 Puff IH BID Thera-M (Multivits, W-Fe,Other Min) 1 Each Tablet 1 Tab PO DAILY Restasis (Cyclosporine) 1 Each Droperette 1 Drop EACHEYE BID Protonix (Pantoprazole Sodium) 20 Mg Tablet.dr 40 Mg PO DAILY Ditropan Xl (Oxybutynin Chloride) 10 Mg Tab.er.24 10 Mg PO DAILY Levothyroxine Sodium 100 Mcg Tablet 100 Mcg PO DAILY06 Cetirizine Hcl 10 Mg Tablet 5 Mg PO HS Atorvastatin Calcium 20 Mg Tablet 20 Mg PO QHS Aspirin 81 Mg Tab.chew 81 Mg PO DAILYWBKFT Depakote Er (Divalproex Sodium) 500 Mg Tab.er.24h 500 Mg PO QHS Zinc Oxide 57 Gm Oint...g. 1 Mike TP PRN BID PRN Voltaren (Diclofenac Sodium) 100 Gm Gel..gram. 1 Mike TP TID Ventolin Hfa Inhaler (Albuterol Sulfate) 18 Gm Hfa.aer.ad 2 Puff IH PRN Q4HRS PRN Tramadol Hcl (Tramadol HCl) 50 Mg Tablet 50 Mg PO PRN Q6HRS PRN Ondansetron Odt (Ondansetron) 4 Mg Tab.rapdis 4 Mg PO PRN Q6HRS PRN Nitrostat (Nitroglycerin) 0.4 Mg Tab.subl 0.4 Mg SL PRN Q5MIN PRN Mucinex (Guaifenesin) 600 Mg Tablet.er 600 Mg PO PRN BID PRN I have reviewed the current psychotropics carefully including drug interactions. Risk benefit ratio favors no change other than as noted in my dictated progress note. Diagnosis: Problems: (1) Major depressive disorder, recurrent episode (2) Impulse control disorder (3) Anxiety disorder ANABELL MCDONALD MD Oct 12, 2018 21:43
--- NOTE | 2018-10-12 21:46 | PDOC ---
Exam Note: Lm Note: Please also refer to the separate dictated note~for this date of service dictated separately.~Patient seen individually. Discussed the patient with Nursing staff reviewed the chart.~Reviewed interim history and current functioning. Reviewed vital signs,~Labs/ Radiology~and current medications noted below. Continue current treatment with the changes noted in the dictated addendum note. late entry for 10/10/18 Assessment: Vital Signs: VS - Last 72 Hours, by Label Date Time Temp Pulse Resp B/P (MAP) Pulse Ox O2 Delivery O2 Flow Rate FiO2 10/12/18 20:00 98 Room Air 10/12/18 18:52 98.2 65 142/67 (92) 95 Room Air 10/12/18 14:48 98.2 65 18 128/73 (91) 98 Room Air 10/12/18 11:13 98.2 74 103/56 (72) 95 10/12/18 09:31 97 Room Air 10/12/18 08:04 Room Air 10/12/18 06:24 97.9 72 18 126/72 (90) 91 Room Air 10/11/18 22:58 98.4 75 18 118/70 (86) 97 Room Air 10/11/18 20:00 92 Room Air 10/11/18 19:24 Room Air 10/11/18 19:22 98.4 84 20 152/79 (103) 95 Room Air 10/11/18 15:56 98.3 67 20 136/76 (96) 96 Room Air 10/11/18 11:21 97.9 79 20 124/70 (88) 97 Room Air 10/11/18 09:30 99 Room Air 10/11/18 08:00 Room Air 10/11/18 05:15 98.2 67 18 130/74 (92) 94 Room Air 10/11/18 04:51 Room Air 10/11/18 03:51 Room Air 10/10/18 22:43 97.4 76 18 124/76 (92) 96 Room Air 10/10/18 20:15 98 Room Air 10/10/18 20:00 Room Air 10/10/18 19:33 98.4 90 20 147/73 (97) 98 Room Air 10/10/18 15:01 98.0 66 20 144/79 (100) 96 Room Air 10/10/18 11:02 94 Room Air 10/10/18 10:58 97.8 74 20 121/63 (82) 98 Room Air 10/10/18 08:00 Room Air 10/10/18 05:36 97.7 62 18 110/69 (83) 93 Room Air 10/09/18 22:47 98.0 84 24 113/72 (86) 96 Room Air Vital Signs Date Time Temp Pulse Resp B/P (MAP) Pulse Ox O2 Delivery O2 Flow Rate FiO2 10/12/18 20:00 98 Room Air 10/12/18 18:52 98.2 65 142/67 (92) 10/12/18 14:48 18 10/09/18 19:45 I&O Intake and Output 10/12/18 07:01 Intake Total 1777 ml Output Total 1 ml Balance 1776 ml Intake Oral 1020 ml IV Total 100 ml Blood Product IV Normal Saline Flush 657 ml Stool Total 1 ml # Voids 2 # Bowel Movements 2 Current Medications: Meds: Current Medications Vancomycin HCl (Vanco Per Pharmacy) 1 each PRN DAILY PRN MC SEE COMMENTS Last administered on 10/09/18at 22:13; Start 10/09/18 at 20:00; Stop 10/12/18 at 11 :19; Status DC Piperacillin Sod/ Tazobactam Sod (Zosyn Per Pharmacy) 1 each PRN DAILY PRN MC SEE COMMENTS Last administered on 10/09/18at 22:13; Start 10/09/18 at 20:00 Albuterol Sulfate (Ventolin) 2.5 mg STK-MED ONCE .ROUTE Last administered on at 21:10; Start 10/09/18 at 20:34; Stop 10/09/18 at 20:36; Status DC Piperacillin Sod/ Tazobactam Sod 3.375 gm/Sodium Chloride 50 ml @ 100 mls/hr Q6H IV Last administered on 10/12/18at 16:32; Start 10/09/18 at 22:00 Vancomycin HCl 1.75 gm/Sodium Chloride 500 ml @ 250 mls/hr 1X ONCE IV Last administered on 10/09/18at 21:43; Start 10/09/18 at 21:15; Stop 10/09/18 at 23 :14; Status DC Vancomycin HCl 1 gm/Sodium Chloride 250 ml @ 250 mls/hr Q24H IV Last administered on 10/11/18at 20:48; Start 10/10/18 at 21:00; Stop 10/12/18 at 11 :13; Status DC Vancomycin HCl (Vancomycin Trough Level) 1 each 1X ONCE MC Last administered on 10/11/18at 20:30; Start 10/11/18 at 20:30; Stop 10/11/18 at 20:31; Status DC Lactobacillus Rhamnosus (Culturelle) 1 cap BID PO Last administered on at 21:10; Start 10/10/18 at 09:00 Acetaminophen (Tylenol) 650 mg PRN Q4HRS PRN PO PAIN / TEMP; Start 10/09/18 at 22:45 Albuterol Sulfate (Ventolin Hfa Inhaler) 2 puff BID IH ; Start 10/10/18 at 09: 00; Status UNV Albuterol Sulfate (Ventolin Hfa Inhaler) 2 puff PRN Q4HRS PRN IH FOR ASTHMA; Start 10/09/18 at 22:45; Status UNV Atorvastatin Calcium (Lipitor) 20 mg QHS PO ; Start 10/10/18 at 21:00; Stop at 21:00; Status DC Vitamin D (Vitamin D3) 50,000 unit QTH PO ; Start 10/16/18 at 16:00 Cyclosporine (Restasis) 1 drop BID OU Last administered on 10/12/18at 21:10; Start 10/10/18 at 09:00 Diclofenac Sodium (Voltaren) 1 mike TID TP Last administered on 10/12/18at 21:16 ; Start 10/10/18 at 09:00 Guaifenesin (Mucinex Er) 600 mg PRN BID PRN PO COUGH; Start 10/09/18 at 22:45 Levothyroxine Sodium (Synthroid) 100 mcg DAILY06 PO Last administered on at 06:16; Start 10/10/18 at 06:00 Multi-Ingredient Ointment (Analgesic [place]) 1 mike PRN QID PRN TP MUSCLE PAIN; Start 10/09/18 at 22:45 Nitroglycerin (Nitrostat) 0.4 mg PRN Q5MIN PRN SL CHEST PAIN; Start 10/09/18 at 22:45 Tramadol HCl (Ultram) 50 mg PRN Q6HRS PRN PO PAIN Last administered on at 03:51; Start 10/09/18 at 22:45 Aspirin (Children'S Aspirin) 81 mg DAILYWBKFT PO Last administered on at 08:38; Start 10/10/18 at 08:00 Benzonatate (Tessalon Perle) 100 mg [id number] PO ; Start 10/10/18 at 09:00; Stop 10/10/18 at 09:00; Status DC Cetirizine HCl (ZyrTEC) 10 mg HS PO ; Start 10/10/18 at 21:00; Stop 10/10/18 at 21:00; Status DC Non-Formulary Medication (Dextroamphetamine/ Amphetamine (Adderall 20 Mg Tablet) ) 20 mg 0600, 1200 PO ; Start 10/09/18 at 22:45; Status UNV Divalproex Sodium (Depakote Er) 250 mg DAILY PO Last administered on at 08:38; Start 10/10/18 at 09:00 Divalproex Sodium (Depakote Er) 500 mg HS PO Last administered on 10/12/18at 21 :10; Start 10/09/18 at 23:30 Docusate Sodium (Colace) 100 mg PRN DAILY PRN PO CONSTIPATION Last administered on 10/11/18at 08:04; Start 10/09/18 at 23:30 Loperamide HCl (Imodium) 2 mg PRN QID PRN PO DIARRHEA; Start 10/09/18 at 23:30 Al Hydroxide/Mg Hydroxide (Mylanta Plus Xs) 15 ml PRN AFTMEALHC PRN PO DYSPEPSIA; Start 10/09/18 at 23:30 Magnesium Hydroxide (Milk Of Magnesia) 2,400 mg PRN QHS PRN PO CONSTIPATION; Start 10/09/18 at 23:30 Multivitamins/ Calcium (Thera-M Plus) 1 tab DAILY PO Last administered on 10/12at 08:38; Start 10/10/18 at 09:00 Ondansetron HCl (Zofran Odt) 4 mg PRN Q6HRS PRN PO NAUSEA/VOMITING; Start at 23:30 Oxybutynin Chloride (Ditropan) 5 mg BID PO ; Start 10/10/18 at 09:00; Stop at 09:00; Status DC Pantoprazole Sodium (Protonix) 40 mg DAILYAC PO Last administered on at 08:39; Start 10/10/18 at 07:30 Non-Formulary Medication (Sodium Oxybate (Xyrem)) 7 ml HS PO Last administered on 10/12/18at 21:11; Start 10/09/18 at 23:30 Trazodone HCl (Desyrel) 50 mg PRN QHS PRN PO INSOMNIA; Start 10/09/18 at 23:45 Trazodone HCl (Desyrel) 50 mg HS PO Last administered on 10/12/18 21:10; Start 10/09/18 at 23:45 Venlafaxine HCl (Effexor) 75 mg TID PO Last administered on 10/12/18 21:10; Start 10/10/18 at 09:00 Zinc Oxide (Zinc Oxide 20% Topical) 1 mike PRN BID PRN TP RASH; Start 10/09/18 at 23:45 Albuterol Sulfate (Ventolin) 2.5 mg PRN Q4HRS PRN NEB SHORTNESS OF BREATH; Start 10/09/18 at 23:30 Albuterol Sulfate (Ventolin) 2.5 mg RTBID NEB Last administered on 10/12/18at 19:59; Start 10/10/18 at 08:00 Atorvastatin Calcium (Lipitor) 20 mg QHS PO Last administered on 10/12/18 21: 10; Start 10/09/18 at 23:30 Benzonatate (Tessalon Perle) 100 mg [id number] PO Last administered on 10/12/18 21:10; Start 10/09/18 at 23:30 Cetirizine HCl (ZyrTEC) 5 mg HS PO Last administered on 10/12/18 21:10; Start 10/09/18 at 23:30 Oxybutynin Chloride (Ditropan) 5 mg BID PO Last administered on 10/12/18 21: 11; Start 10/09/18 at 23:30 Non-Formulary Medication (Sodium Oxybate (Xyrem)) 7 ml HS PO ; Start 10/09/18 at 23:30; Status UNV Methylphenidate HCl (Methylphenidate HCl) 20 mg 0600,1200 PO Last administered on 10/12/18at 14:34; Start 10/10/18 at 06:00 Active Scripts Active Reported Trazodone Hcl 50 Mg Tablet 50 Mg PO PRN QHS PRN Trazodone Hcl 50 Mg Tablet 50 Mg PO QHS Venlafaxine Hcl Er (Venlafaxine Hcl) 225 Mg Tab.er.24 225 Mg PO DAILY Analgesic [place] (Methyl Salicylate/Menthol) 28 Gm Oint...g. 1 Gm TP PRN QID PRN Milk Of Magnesia (Magnesium Hydroxide) 2,400 Mg/10 Ml Oral.susp 2,400 Mg PO PRN QHS PRN Mag-Al Plus Suspension (Mag Hydrox/Al Hydrox/Simeth) 30 Ml Oral.susp 15 Ml PO PRN AFTMEALHC PRN Depakote Er (Divalproex Sodium) 250 Mg Tab.er.24h 250 Mg PO DAILY D3-50 (Cholecalciferol (Vitamin D3)) 50,000 Unit Capsule 50,000 Unit PO QTH Benzonatate 100 Mg Capsule 100 Mg PO [id number] Adderall 20 Mg Tablet (Dextroamphetamine/Amphetamine) 20 Mg Tablet 20 Mg PO 0600 , 1200 Tylenol (Acetaminophen) 325 Mg Tablet 650 Mg PO PRN Q4HRS PRN Loperamide (Loperamide Hcl) 2 Mg Capsule 2 Mg PO PRN QID PRN Colace (Docusate Sodium) 100 Mg Capsule 100 Mg PO PRN DAILY PRN Xyrem (Sodium Oxybate) 500 Mg/1 Ml Solution 7 Ml PO HS Ventolin Hfa Inhaler (Albuterol Sulfate) 18 Gm Hfa.aer.ad 2 Puff IH BID Thera-M (Multivits,Th W-Fe,Other Min) 1 Each Tablet 1 Tab PO DAILY Restasis (Cyclosporine) 1 Each Droperette 1 Drop EACHEYE BID Protonix (Pantoprazole Sodium) 20 Mg Tablet.dr 40 Mg PO DAILY Ditropan Xl (Oxybutynin Chloride) 10 Mg Tab.er.24 10 Mg PO DAILY Levothyroxine Sodium 100 Mcg Tablet 100 Mcg PO DAILY06 Cetirizine Hcl 10 Mg Tablet 5 Mg PO HS Atorvastatin Calcium 20 Mg Tablet 20 Mg PO QHS Aspirin 81 Mg Tab.chew 81 Mg PO DAILYWBKFT Depakote Er (Divalproex Sodium) 500 Mg Tab.er.24h 500 Mg PO QHS Zinc Oxide 57 Gm Oint...g. 1 Mike TP PRN BID PRN Voltaren (Diclofenac Sodium) 100 Gm Gel..gram. 1 Mike TP TID Ventolin Hfa Inhaler (Albuterol Sulfate) 18 Gm Hfa.aer.ad 2 Puff IH PRN Q4HRS PRN Tramadol Hcl (Tramadol HCl) 50 Mg Tablet 50 Mg PO PRN Q6HRS PRN Ondansetron Odt (Ondansetron) 4 Mg Tab.rapdis 4 Mg PO PRN Q6HRS PRN Nitrostat (Nitroglycerin) 0.4 Mg Tab.subl 0.4 Mg SL PRN Q5MIN PRN Mucinex (Guaifenesin) 600 Mg Tablet.er 600 Mg PO PRN BID PRN I have reviewed the current psychotropics carefully including drug interactions. Risk benefit ratio favors no change other than as noted in my dictated progress note. Diagnosis: Problems: (1) Major depressive disorder, recurrent episode (2) Impulse control disorder (3) Anxiety disorder ANABELL MCDONALD MD Oct 12, 2018 21:46
[2018-10-12 23:00] VITALS: BP 132/76
[2018-10-13] MEDS: PIPERACILLIN/TAZOBACTAM 3.375 GM in IV NORMAL SALINE 50ML 50 ML IV SCH ×5 (00:39→21:12)
[2018-10-13 06:23] LABS: HEMATOCRIT 41.2 % (36.0-47.0); HEMOGLOBIN 13.6 g/dL (12.0-15.5); RED BLOOD COUNT 4.66 x10^6/uL (3.50-5.40); RED CELL DISTRIBUTION WIDTH 16.7 % (11.5-14.5); WHITE BLOOD COUNT 8.5 x10^3/uL (4.0-11.0)
[2018-10-13 06:29] LABS: CALCIUM 8.2 mg/dL (8.5-10.1); CREATININE 0.9 mg/dL (0.6-1.0); GFR 59.8; POTASSIUM 4.2 mmol/L (3.5-5.1)
[2018-10-13 06:45] VITALS: BP 170/78
[2018-10-13] MEDS: METHYLPHENIDATE HCL 5 MG TABLET PO SCH ×2 (06:49→11:43)
[2018-10-13] MEDS: LEVOTHYROXINE 100 MCG TABLET PO SCH (06:49)
[2018-10-13] MEDS: BENZONATATE 100 MG CAPSULE. PO SCH ×3 (09:01→21:11)
[2018-10-13] MEDS: OXYBUTYNIN CHLORIDE 5 MG TABLET PO SCH ×2 (09:01→21:12)
[2018-10-13] MEDS: LACTOBACILLUS RHAMNOSUS GG 1 CAPSULE. PO SCH ×2 (09:01→21:11)
[2018-10-13] MEDS: PANTOPRAZOLE 40 MG TABLET. PO SCH (09:01)
[2018-10-13] MEDS: MULTIVITAMIN with MINERAL TABLET. PO SCH (09:01)
[2018-10-13] MEDS: DIVALPROEX ER 250 MG TAB.ER.24H. PO SCH (09:01)
[2018-10-13] MEDS: cycloSPORINE 0.05% OPTH 1 DROP DROPERETTE OU SCH ×2 (09:01→21:11)
[2018-10-13] MEDS: ASPIRIN 81 MG TAB.CHEW PO SCH (09:01)
[2018-10-13] MEDS: VENLAFAXINE 75 MG TABLET. PO SCH ×3 (09:02→21:11)
[2018-10-13] MEDS: DICLOFENAC SODIUM 1% TOPICAL GEL 100GM TUBE. TP SCH ×3 (09:06→21:12)
[2018-10-13] MEDS: ALBUTEROL SULFATE 2.5 MG/3 ML NEBU. NEB SCH ×2 (10:42→21:05)
[2018-10-13] MEDS: traMADol 50 MG TABLET PO PRN (11:03)
[2018-10-13 11:13] VITALS: BP 152/75
--- NOTE | 2018-10-13 13:07 | PN ---
DATE: 10/13/2018 SUBJECTIVE: The patient is sitting comfortably in her chair, eating her lunch, in no apparent distress. On questioning her, she continued to have cough with scanty white sputum. Denied any other complaint. The nursing staff did not voice any concerns and she had an uneventful night. PHYSICAL EXAMINATION: GENERAL: When I examined her, she looked pale. No jaundice, cyanosis, or thyromegaly. No jugular venous distension. No limb edema. VITAL SIGNS: Her heart rate was 99, blood pressure 152/75, temperature was 97.9, respiratory rate was 20, and oxygen saturation was 94%. HEAD, EYES, EARS, NOSE AND THROAT: Normocephalic, atraumatic. NECK: Supple. HEART: Showed normal first and second heart sounds with no gallop, rub or murmur. CHEST: Clear to auscultation. No crepitation or rhonchi. ABDOMEN: Distended, soft, nontender. No guarding or rigidity. No organomegaly. All hernial orifices intact. Bowel sounds normal. NEUROLOGIC: She is demented, but without any obvious lateralizing sign. All cranial nerves intact. EXTREMITIES: She moves extremities without difficulty. She ambulates with a walker with minimal standby assist. Her intake was 1775, no output was recorded. LABORATORY DATA: Her lab work this morning showed a white cell count of 8500, hemoglobin 13.6, hematocrit 41, MCV 89 and platelet count 250,000. Her chemistry showed serum sodium 144, potassium 4.2, chloride 106, bicarbonate 29, anion gap of 9, BUN 17, creatinine 0.9, estimated GFR was 59 mL per minute. Her glucose was 77, calcium was 8.2. Her nasal screen for MRSA by PCR was negative. So far, all her blood and urine cultures were negative. ASSESSMENT: 1. Healthcare-associated pneumonia for which she is currently on Zosyn. I discontinued her Zyvox. 2. She has multiple medical problems including A. Narcolepsy and cataplexy. B. Hypothyroidism. C. Osteoarthritis, osteoporosis. D. Hyperlipidemia. E. Hypertension. F. Vitamin D deficiency. G. Cognitive impairment. PLAN: I will continue with Zosyn for today. Continue with all other medications. Apparently, her nursing facility will not be able to come and take her home today, probably go back there on Saturday. HIREN CAN MD DR: DEL/kamini JOB#: [id number] / [id number]
--- NOTE | 2018-10-13 14:09 | PDOC ---
Exam Note: Lm Note: Please also refer to the separate dictated note~for this date of service dictated separately.~Patient seen individually. Discussed the patient with Nursing staff reviewed the chart.~Reviewed interim history and current functioning. Reviewed vital signs,~Labs/ Radiology~and current medications noted below. Continue current treatment with the changes noted in the dictated addendum note Assessment: Vital Signs: Vital Signs Date Time Temp Pulse Resp B/P (MAP) Pulse Ox O2 Delivery O2 Flow Rate FiO2 10/13/18 11:13 97.9 99 20 152/75 (100) 94 Room Air 10/09/18 19:45 I&O Intake and Output 10/13/18 07:01 Intake Total 50 ml Balance 50 ml IV Total 50 ml # Voids 3 # Bowel Movements 2 Labs: Laboratory Tests Test 10/13/18 05:48 White Blood Count 8.5 x10^3/uL (4.0-11.0) Red Blood Count 4.66 x10^6/uL (3.50-5.40) Hemoglobin 13.6 g/dL (12.0-15.5) Hematocrit 41.2 % (36.0-47.0) Mean Corpuscular Volume 89 fL (79-100) Mean Corpuscular Hemoglobin 29 pg (25-35) Mean Corpuscular Hemoglobin Concent 33 g/dL (31-37) Red Cell Distribution Width 16.7 % (11.5-14.5) H Platelet Count 250 x10^3/uL (140-400) Sodium Level 144 mmol/L (136-145) Potassium Level 4.2 mmol/L (3.5-5.1) Chloride Level 106 mmol/L (98-107) Carbon Dioxide Level 29 mmol/L (21-32) Anion Gap 9 (6-14) Blood Urea Nitrogen 17 mg/dL (7-20) Creatinine 0.9 mg/dL (0.6-1.0) Estimated GFR (Cockcroft-Gault) 59.8 Glucose Level 77 mg/dL (70-99) Calcium Level 8.2 mg/dL (8.5-10.1) L Current Medications: Meds: Current Medications Vancomycin HCl (Vanco Per Pharmacy) 1 each PRN DAILY PRN MC SEE COMMENTS Last administered on 10/09/18at 22:13; Start 10/09/18 at 20:00; Stop 10/12/18 at 11 :19; Status DC Piperacillin Sod/ Tazobactam Sod (Zosyn Per Pharmacy) 1 each PRN DAILY PRN MC SEE COMMENTS Last administered on 10/09/18at 22:13; Start 10/09/18 at 20:00 Albuterol Sulfate (Ventolin) 2.5 mg STK-MED ONCE .ROUTE Last administered on at 21:10; Start 10/09/18 at 20:34; Stop 10/09/18 at 20:36; Status DC Piperacillin Sod/ Tazobactam Sod 3.375 gm/Sodium Chloride 50 ml @ 100 mls/hr Q6H IV Last administered on 10/13/18at 11:33; Start 10/09/18 at 22:00 Vancomycin HCl 1.75 gm/Sodium Chloride 500 ml @ 250 mls/hr 1X ONCE IV Last administered on 10/09/18at 21:43; Start 10/09/18 at 21:15; Stop 10/09/18 at 23 :14; Status DC Vancomycin HCl 1 gm/Sodium Chloride 250 ml @ 250 mls/hr Q24H IV Last administered on 10/11/18at 20:48; Start 10/10/18 at 21:00; Stop 10/12/18 at 11 :13; Status DC Vancomycin HCl (Vancomycin Trough Level) 1 each 1X ONCE MC Last administered on 10/11/18at 20:30; Start 10/11/18 at 20:30; Stop 10/11/18 at 20:31; Status DC Lactobacillus Rhamnosus (Culturelle) 1 cap BID PO Last administered on at 09:01; Start 10/10/18 at 09:00 Acetaminophen (Tylenol) 650 mg PRN Q4HRS PRN PO PAIN / TEMP; Start 10/09/18 at 22:45 Albuterol Sulfate (Ventolin Hfa Inhaler) 2 puff BID IH ; Start 10/10/18 at 09: 00; Status UNV Albuterol Sulfate (Ventolin Hfa Inhaler) 2 puff PRN Q4HRS PRN IH FOR ASTHMA; Start 10/09/18 at 22:45; Status UNV Atorvastatin Calcium (Lipitor) 20 mg QHS PO ; Start 10/10/18 at 21:00; Stop at 21:00; Status DC Vitamin D (Vitamin D3) 50,000 unit QTH PO ; Start 10/16/18 at 16:00 Cyclosporine (Restasis) 1 drop BID OU Last administered on 10/13/18at 09:01; Start 10/10/18 at 09:00 Diclofenac Sodium (Voltaren) 1 mike TID TP Last administered on 10/13/18at 09:06 ; Start 10/10/18 at 09:00 Guaifenesin (Mucinex Er) 600 mg PRN BID PRN PO COUGH; Start 10/09/18 at 22:45 Levothyroxine Sodium (Synthroid) 100 mcg DAILY06 PO Last administered on at 06:49; Start 10/10/18 at 06:00 Multi-Ingredient Ointment (Analgesic [place]) 1 mike PRN QID PRN TP MUSCLE PAIN; Start 10/09/18 at 22:45 Nitroglycerin (Nitrostat) 0.4 mg PRN Q5MIN PRN SL CHEST PAIN; Start 10/09/18 at 22:45 Tramadol HCl (Ultram) 50 mg PRN Q6HRS PRN PO PAIN Last administered on at 11:03; Start 10/09/18 at 22:45 Aspirin (Children'S Aspirin) 81 mg DAILYWBKFT PO Last administered on at 09:01; Start 10/10/18 at 08:00 Benzonatate (Tessalon Perle) 100 mg [id number] PO ; Start 10/10/18 at 09:00; Stop 10/10/18 at 09:00; Status DC Cetirizine HCl (ZyrTEC) 10 mg HS PO ; Start 10/10/18 at 21:00; Stop 10/10/18 at 21:00; Status DC Non-Formulary Medication (Dextroamphetamine/ Amphetamine (Adderall 20 Mg Tablet) ) 20 mg 0600, 1200 PO ; Start 10/09/18 at 22:45; Status UNV Divalproex Sodium (Depakote Er) 250 mg DAILY PO Last administered on at 09:01; Start 10/10/18 at 09:00 Divalproex Sodium (Depakote Er) 500 mg HS PO Last administered on 10/12/18at 21 :10; Start 10/09/18 at 23:30 Docusate Sodium (Colace) 100 mg PRN DAILY PRN PO CONSTIPATION Last administered on 10/11/18at 08:04; Start 10/09/18 at 23:30 Loperamide HCl (Imodium) 2 mg PRN QID PRN PO DIARRHEA; Start 10/09/18 at 23:30 Al Hydroxide/Mg Hydroxide (Mylanta Plus Xs) 15 ml PRN AFTMEALHC PRN PO DYSPEPSIA; Start 10/09/18 at 23:30 Magnesium Hydroxide (Milk Of Magnesia) 2,400 mg PRN QHS PRN PO CONSTIPATION; Start 10/09/18 at 23:30 Multivitamins/ Calcium (Thera-M Plus) 1 tab DAILY PO Last administered on 10/13at 09:01; Start 10/10/18 at 09:00 Ondansetron HCl (Zofran Odt) 4 mg PRN Q6HRS PRN PO NAUSEA/VOMITING; Start at 23:30 Oxybutynin Chloride (Ditropan) 5 mg BID PO ; Start 10/10/18 at 09:00; Stop at 09:00; Status DC Pantoprazole Sodium (Protonix) 40 mg DAILYAC PO Last administered on at 09:01; Start 10/10/18 at 07:30 Non-Formulary Medication (Sodium Oxybate (Xyrem)) 7 ml HS PO Last administered on 10/12/18at 21:11; Start 10/09/18 at 23:30 Trazodone HCl (Desyrel) 50 mg PRN QHS PRN PO INSOMNIA; Start 10/09/18 at 23:45 Trazodone HCl (Desyrel) 50 mg HS PO Last administered on 10/12/18at 21:10; Start 10/09/18 at 23:45 Venlafaxine HCl (Effexor) 75 mg TID PO Last administered on 10/13/18at 09:02; Start 10/10/18 at 09:00 Zinc Oxide (Zinc Oxide 20% Topical) 1 mike PRN BID PRN TP RASH; Start 10/09/18 at 23:45 Albuterol Sulfate (Ventolin) 2.5 mg PRN Q4HRS PRN NEB SHORTNESS OF BREATH; Start 10/09/18 at 23:30 Albuterol Sulfate (Ventolin) 2.5 mg RTBID NEB Last administered on 10/13/18at 10:42; Start 10/10/18 at 08:00 Atorvastatin Calcium (Lipitor) 20 mg QHS PO Last administered on 10/12/18at 21: 10; Start 10/09/18 at 23:30 Benzonatate (Tessalon Perle) 100 mg [id number] PO Last administered on 10/13/18at 09:01; Start 10/09/18 at 23:30 Cetirizine HCl (ZyrTEC) 5 mg HS PO Last administered on 10/12/18at 21:10; Start 10/09/18 at 23:30 Oxybutynin Chloride (Ditropan) 5 mg BID PO Last administered on 10/13/18at 09: 01; Start 10/09/18 at 23:30 Non-Formulary Medication (Sodium Oxybate (Xyrem)) 7 ml HS PO ; Start 10/09/18 at 23:30; Status UNV Methylphenidate HCl (Methylphenidate HCl) 20 mg 0600,1200 PO Last administered on 10/13/18at 11:43; Start 10/10/18 at 06:00 Active Scripts Active Reported Trazodone Hcl 50 Mg Tablet 50 Mg PO PRN QHS PRN Trazodone Hcl 50 Mg Tablet 50 Mg PO QHS Venlafaxine Hcl Er (Venlafaxine Hcl) 225 Mg Tab.er.24 225 Mg PO DAILY Analgesic [place] (Methyl Salicylate/Menthol) 28 Gm Oint...g. 1 Gm TP PRN QID PRN Milk Of Magnesia (Magnesium Hydroxide) 2,400 Mg/10 Ml Oral.susp 2,400 Mg PO PRN QHS PRN Mag-Al Plus Suspension (Mag Hydrox/Al Hydrox/Simeth) 30 Ml Oral.susp 15 Ml PO PRN AFTMEALHC PRN Depakote Er (Divalproex Sodium) 250 Mg Tab.er.24h 250 Mg PO DAILY D3-50 (Cholecalciferol (Vitamin D3)) 50,000 Unit Capsule 50,000 Unit PO QTH Benzonatate 100 Mg Capsule 100 Mg PO [id number] Adderall 20 Mg Tablet (Dextroamphetamine/Amphetamine) 20 Mg Tablet 20 Mg PO 0600 , 1200 Tylenol (Acetaminophen) 325 Mg Tablet 650 Mg PO PRN Q4HRS PRN Loperamide (Loperamide Hcl) 2 Mg Capsule 2 Mg PO PRN QID PRN Colace (Docusate Sodium) 100 Mg Capsule 100 Mg PO PRN DAILY PRN Xyrem (Sodium Oxybate) 500 Mg/1 Ml Solution 7 Ml PO HS Ventolin Hfa Inhaler (Albuterol Sulfate) 18 Gm Hfa.aer.ad 2 Puff IH BID Thera-M (Multivits, W-Fe,Other Min) 1 Each Tablet 1 Tab PO DAILY Restasis (Cyclosporine) 1 Each Droperette 1 Drop EACHEYE BID Protonix (Pantoprazole Sodium) 20 Mg Tablet.dr 40 Mg PO DAILY Ditropan Xl (Oxybutynin Chloride) 10 Mg Tab.er.24 10 Mg PO DAILY Levothyroxine Sodium 100 Mcg Tablet 100 Mcg PO DAILY06 Cetirizine Hcl 10 Mg Tablet 5 Mg PO HS Atorvastatin Calcium 20 Mg Tablet 20 Mg PO QHS Aspirin 81 Mg Tab.chew 81 Mg PO DAILYWBKFT Depakote Er (Divalproex Sodium) 500 Mg Tab.er.24h 500 Mg PO QHS Zinc Oxide 57 Gm Oint...g. 1 Mike TP PRN BID PRN Voltaren (Diclofenac Sodium) 100 Gm Gel..gram. 1 Mike TP TID Ventolin Hfa Inhaler (Albuterol Sulfate) 18 Gm Hfa.aer.ad 2 Puff IH PRN Q4HRS PRN Tramadol Hcl (Tramadol HCl) 50 Mg Tablet 50 Mg PO PRN Q6HRS PRN Ondansetron Odt (Ondansetron) 4 Mg Tab.rapdis 4 Mg PO PRN Q6HRS PRN Nitrostat (Nitroglycerin) 0.4 Mg Tab.subl 0.4 Mg SL PRN Q5MIN PRN Mucinex (Guaifenesin) 600 Mg Tablet.er 600 Mg PO PRN BID PRN I have reviewed the current psychotropics carefully including drug interactions. Risk benefit ratio favors no change other than as noted in my dictated progress note. Diagnosis: Problems: (1) Major depressive disorder, recurrent episode (2) Impulse control disorder (3) Anxiety disorder ANABELL MCDONALD MD Oct 13, 2018 14:09
[2018-10-13 15:26] VITALS: BP 133/69
[2018-10-13 19:42] VITALS: BP 165/81
[2018-10-13] MEDS: CETIRIZINE HCL 10 MG TABLET PO SCH (21:11)
[2018-10-13] MEDS: traZODone 50 MG TABLET. PO SCH (21:11)
[2018-10-13] MEDS: DIVALPROEX ER 500 MG TAB.ER.24H PO SCH (21:11)
[2018-10-13] MEDS: ATORVASTATIN CALCIUM 20 MG TABLET PO SCH (21:11)
[2018-10-13] MEDS: SODIUM OXYBATE PO SCH (22:46)
[2018-10-14] VITALS: BP 160/80
[2018-10-14] MEDS: PIPERACILLIN/TAZOBACTAM 3.375 GM in IV NORMAL SALINE 50ML 50 ML IV SCH (04:07)
[2018-10-14] MEDS: traMADol 50 MG TABLET PO PRN (04:26)
[2018-10-14] MEDS: LEVOTHYROXINE 100 MCG TABLET PO SCH (05:25)
[2018-10-14] MEDS: ALBUTEROL SULFATE 2.5 MG/3 ML NEBU. NEB SCH ×3 (05:25→21:29)
[2018-10-14] MEDS: METHYLPHENIDATE HCL 5 MG TABLET PO SCH ×2 (05:25→13:54)
[2018-10-14 06:46] VITALS: BP 160/80
[2018-10-14] MEDS: BENZONATATE 100 MG CAPSULE. PO SCH ×3 (10:05→20:53)
[2018-10-14] MEDS: OXYBUTYNIN CHLORIDE 5 MG TABLET PO SCH ×2 (10:05→20:56)
[2018-10-14] MEDS: PANTOPRAZOLE 40 MG TABLET. PO SCH (10:05)
[2018-10-14] MEDS: cycloSPORINE 0.05% OPTH 1 DROP DROPERETTE OU SCH ×2 (10:05→20:53)
[2018-10-14] MEDS: MULTIVITAMIN with MINERAL TABLET. PO SCH (10:05)
[2018-10-14] MEDS: DIVALPROEX ER 250 MG TAB.ER.24H. PO SCH (10:05)
[2018-10-14] MEDS: LACTOBACILLUS RHAMNOSUS GG 1 CAPSULE. PO SCH ×2 (10:05→20:53)
[2018-10-14] MEDS: ASPIRIN 81 MG TAB.CHEW PO SCH (10:05)
[2018-10-14] MEDS: DICLOFENAC SODIUM 1% TOPICAL GEL 100GM TUBE. TP SCH ×3 (10:05→20:53)
[2018-10-14] MEDS: VENLAFAXINE 75 MG TABLET. PO SCH ×3 (10:06→20:54)
--- NOTE | 2018-10-14 10:38 | PN ---
DATE: 10/14/2018 SUBJECTIVE: The patient is resting, slightly propped up in bed, in no apparent respiratory distress. She continued to have some cough and is productive and mild wheezing, but overall she is doing much better. PHYSICAL EXAMINATION: GENERAL: When I examined her, she looked pale, but no jaundice, cyanosis, or thyromegaly. No jugular venous distension. No limb edema. VITAL SIGNS: Her heart rate was 72, blood pressure was 160/80, temperature was 97.8, respiratory rate 18, and oxygen saturation was 97% on room air. HEAD, EYES, EARS, NOSE AND THROAT: Showed normocephalic, atraumatic. NECK: Supple. HEART: Showed normal first and second heart sounds with no gallop, rub, or murmur. CHEST: Show central trachea, equally reduced expansion, reduced air entry, vesicular sounds, very few scattered rhonchi. ABDOMEN: Slightly distended, soft, nontender. NEUROLOGIC: She is awake, alert, responding appropriately. All cranial nerves intact. She moves extremities without difficulty. She ambulates with a walker with minimal standby assist. Her intake was 1000, output was incompletely recorded. LABORATORY DATA: Her most recent lab work showed serum sodium 144, potassium 4.2, chloride 106, bicarbonate 29, anion gap of 9, BUN 17, creatinine 0.9, estimated GFR was 60 mL per minute. Her glucose was 77, calcium was 8.2. White cell count was 8500, hemoglobin 13.6, hematocrit 41, MCV 89 and platelet count 250,000. So far, all her blood cultures are negative. ASSESSMENT: 1. Healthcare-associated pneumonia for which she continues to be on Zosyn. I discontinued her Zyvox. 2. She has multiple other medical problems including: a. Narcolepsy and cataplexy. b. Hypothyroidism. c. Osteoarthritis, osteoporosis. d. Hyperlipidemia. e. Hypertension. f. Vitamin D deficiency. g. Cognitive impairment. PLAN: I will discontinue her Zosyn today, switch her to Augmentin and hopefully will discharge her back to her nursing facility tomorrow. HIREN CAN MD DR: DEL/kamini JOB#: [id number] / [id number]
[2018-10-14 11:30] VITALS: BP 104/64
[2018-10-14 16:11] VITALS: BP 137/72
--- NOTE | 2018-10-14 16:48 | PN ---
DATE: 10/12/2018 PSYCHIATRIC PROGRESS NOTE This late entry 10/12/2018 covers elements not covered in my initial note. SUBJECTIVE: I met with the patient in the evening. Per nursing report, the patient has been fairly compliant. She has been less agitated, reasonably oriented. She keeps herself awake during the day so that she can sleep better at night. She still complains of a cough and some tiredness and as I met with her talked about her son, who is the [facility] having being busy with his because his had a cardiac procedure. She is well aware of this and empathic about the situation, able to understand why he is not able to call her. REVIEW OF SYSTEMS: Some ongoing cough, tiredness and she is in a roller chair. No CV, , GI system symptoms on review. MENTAL STATUS EXAM: Oriented to herself and situation. Speech has some latency, coherent. Abstraction fair, computation impaired, language function intact, attention span short. Mood and affect somewhat withdrawn, but improved. LABORATORY DATA: Reviewed. IMPRESSION: Major depressive disorder, recurrent; cognitive disorder, unspecified. Rest unchanged. PLAN: No change from initial note. ANABELL MCDONALD MD DR: MANNIE/kamini JOB#: [id number] / [id number]
--- NOTE | 2018-10-14 16:58 | PN ---
DATE: 10/13/2018 This late entry 10/13/2018 covers elements not covered in my initial note. SUBJECTIVE: I met with the patient in the evening. Per nursing report, the patient continues to be fairly cooperative, appropriate, somewhat withdrawn during the day, but make sure she stays awake, so she can sleep well at night. She watches television. As I met with her again questioned her about her [id number] and she was able to relate that she has not heard from her son, but understands the reason because the son's is not well. REVIEW OF SYSTEMS: She still complains of cough, some tiredness, in a wheelchair. No CV, , GI system symptoms on review. MENTAL STATUS EXAM: Oriented to herself and situation. Speech has some latency, coherent. Abstraction fair. Computation impaired. Language function intact. Attention span short. Mood and affect somewhat withdrawn, but appropriate, pleasant, interactive with me. LABORATORY DATA: Reviewed. IMPRESSION: Major depressive disorder, recurrent; cognitive disorder, unspecified; pneumonia. Defer to Dr. Castillo. PLAN: No change in psychotropics from current note. We will adjust gradually as indicated. She has had no behavior problems, perhaps when she is medically stable, she could transfer to a nursing facility unless things change and [facility] needs to [facility]. ANABELL MCDONALD MD DR: MANNIE/kamini JOB#: [id number] / [id number]
--- NOTE | 2018-10-14 19:56 | PDOC ---
Exam Note: Lm Note: Please also refer to the separate dictated note~for this date of service dictated separately.~Patient seen individually. Discussed the patient with Nursing staff reviewed the chart.~Reviewed interim history and current functioning. Reviewed vital signs,~Labs/ Radiology~and current medications noted below. Continue current treatment with the changes noted in the dictated addendum note Assessment: Vital Signs: Vital Signs Date Time Temp Pulse Resp B/P (MAP) Pulse Ox O2 Delivery O2 Flow Rate FiO2 10/14/18 16:11 98.5 65 18 137/72 (93) 97 Room Air 10/09/18 19:45 I&O Intake and Output 10/14/18 07:01 Intake Total 1061.7 ml Balance 1061.7 ml Intake Oral 940 ml IV Total 121.7 ml # Voids 3 # Bowel Movements 2 Current Medications: Meds: Current Medications Vancomycin HCl (Vanco Per Pharmacy) 1 each PRN DAILY PRN MC SEE COMMENTS Last administered on 10/09/18at 22:13; Start 10/09/18 at 20:00; Stop 10/12/18 at 11 :19; Status DC Piperacillin Sod/ Tazobactam Sod (Zosyn Per Pharmacy) 1 each PRN DAILY PRN MC SEE COMMENTS Last administered on 10/09/18at 22:13; Start 10/09/18 at 20:00; Stop 10/14/18 at 10:13; Status DC Albuterol Sulfate (Ventolin) 2.5 mg STK-MED ONCE .ROUTE Last administered on at 21:10; Start 10/09/18 at 20:34; Stop 10/09/18 at 20:36; Status DC Piperacillin Sod/ Tazobactam Sod 3.375 gm/Sodium Chloride 50 ml @ 100 mls/hr Q6H IV Last administered on 10/14/18at 04:07; Start 10/09/18 at 22:00; Stop 10/14/18 at 10:09; Status DC Vancomycin HCl 1.75 gm/Sodium Chloride 500 ml @ 250 mls/hr 1X ONCE IV Last administered on 10/09/18at 21:43; Start 10/09/18 at 21:15; Stop 10/09/18 at 23 :14; Status DC Vancomycin HCl 1 gm/Sodium Chloride 250 ml @ 250 mls/hr Q24H IV Last administered on 10/11/18at 20:48; Start 10/10/18 at 21:00; Stop 10/12/18 at 11 :13; Status DC Vancomycin HCl (Vancomycin Trough Level) 1 each 1X ONCE MC Last administered on 10/11/18at 20:30; Start 10/11/18 at 20:30; Stop 10/11/18 at 20:31; Status DC Lactobacillus Rhamnosus (Culturelle) 1 cap BID PO Last administered on at 10:05; Start 10/10/18 at 09:00 Acetaminophen (Tylenol) 650 mg PRN Q4HRS PRN PO PAIN / TEMP Last administered on 10/14/18at 19:40; Start 10/09/18 at 22:45 Albuterol Sulfate (Ventolin Hfa Inhaler) 2 puff BID IH ; Start 10/10/18 at 09: 00; Status UNV Albuterol Sulfate (Ventolin Hfa Inhaler) 2 puff PRN Q4HRS PRN IH FOR ASTHMA; Start 10/09/18 at 22:45; Status UNV Atorvastatin Calcium (Lipitor) 20 mg QHS PO ; Start 10/10/18 at 21:00; Stop at 21:00; Status DC Vitamin D (Vitamin D3) 50,000 unit QTH PO ; Start 10/16/18 at 16:00 Cyclosporine (Restasis) 1 drop BID OU Last administered on 10/14/18at 10:05; Start 10/10/18 at 09:00 Diclofenac Sodium (Voltaren) 1 mike TID TP Last administered on 10/14/18at 13:54 ; Start 10/10/18 at 09:00 Guaifenesin (Mucinex Er) 600 mg PRN BID PRN PO COUGH; Start 10/09/18 at 22:45 Levothyroxine Sodium (Synthroid) 100 mcg DAILY06 PO Last administered on at 05:25; Start 10/10/18 at 06:00 Multi-Ingredient Ointment (Analgesic [place]) 1 mike PRN QID PRN TP MUSCLE PAIN; Start 10/09/18 at 22:45 Nitroglycerin (Nitrostat) 0.4 mg PRN Q5MIN PRN SL CHEST PAIN; Start 10/09/18 at 22:45 Tramadol HCl (Ultram) 50 mg PRN Q6HRS PRN PO PAIN Last administered on at 04:26; Start 10/09/18 at 22:45 Aspirin (Children'S Aspirin) 81 mg DAILYWBKFT PO Last administered on at 10:05; Start 10/10/18 at 08:00 Benzonatate (Tessalon Perle) 100 mg [id number] PO ; Start 10/10/18 at 09:00; Stop 10/10/18 at 09:00; Status DC Cetirizine HCl (ZyrTEC) 10 mg HS PO ; Start 10/10/18 at 21:00; Stop 10/10/18 at 21:00; Status DC Non-Formulary Medication (Dextroamphetamine/ Amphetamine (Adderall 20 Mg Tablet) ) 20 mg 0600, 1200 PO ; Start 10/09/18 at 22:45; Status UNV Divalproex Sodium (Depakote Er) 250 mg DAILY PO Last administered on at 10:05; Start 10/10/18 at 09:00 Divalproex Sodium (Depakote Er) 500 mg HS PO Last administered on 10/13/18at 21 :11; Start 10/09/18 at 23:30 Docusate Sodium (Colace) 100 mg PRN DAILY PRN PO CONSTIPATION Last administered on 10/11/18at 08:04; Start 10/09/18 at 23:30 Loperamide HCl (Imodium) 2 mg PRN QID PRN PO DIARRHEA; Start 10/09/18 at 23:30 Al Hydroxide/Mg Hydroxide (Mylanta Plus Xs) 15 ml PRN AFTMEALHC PRN PO DYSPEPSIA; Start 10/09/18 at 23:30 Magnesium Hydroxide (Milk Of Magnesia) 2,400 mg PRN QHS PRN PO CONSTIPATION; Start 10/09/18 at 23:30 Multivitamins/ Calcium (Thera-M Plus) 1 tab DAILY PO Last administered on 10/14at 10:05; Start 10/10/18 at 09:00 Ondansetron HCl (Zofran Odt) 4 mg PRN Q6HRS PRN PO NAUSEA/VOMITING; Start at 23:30 Oxybutynin Chloride (Ditropan) 5 mg BID PO ; Start 10/10/18 at 09:00; Stop at 09:00; Status DC Pantoprazole Sodium (Protonix) 40 mg DAILYAC PO Last administered on 10:05; Start 10/10/18 at 07:30 Non-Formulary Medication (Sodium Oxybate (Xyrem)) 7 ml HS PO Last administered on 10/13/18at 22:46; Start 10/09/18 at 23:30 Trazodone HCl (Desyrel) 50 mg PRN QHS PRN PO INSOMNIA; Start 10/09/18 at 23:45 Trazodone HCl (Desyrel) 50 mg HS PO Last administered on 10/13/18at 21:11; Start 10/09/18 at 23:45 Venlafaxine HCl (Effexor) 75 mg TID PO Last administered on 10/14/18 13:54; Start 10/10/18 at 09:00 Zinc Oxide (Zinc Oxide 20% Topical) 1 mike PRN BID PRN TP RASH; Start 10/09/18 at 23:45 Albuterol Sulfate (Ventolin) 2.5 mg PRN Q4HRS PRN NEB SHORTNESS OF BREATH; Start 10/09/18 at 23:30 Albuterol Sulfate (Ventolin) 2.5 mg RTBID NEB Last administered on 10/14/18 09:46; Start 10/10/18 at 08:00 Atorvastatin Calcium (Lipitor) 20 mg QHS PO Last administered on 10/13/18at 21: 11; Start 10/09/18 at 23:30 Benzonatate (Tessalon Perle) 100 mg [id number] PO Last administered on 10/14/18 13:54; Start 10/09/18 at 23:30 Cetirizine HCl (ZyrTEC) 5 mg HS PO Last administered on 10/13/18at 21:11; Start 10/09/18 at 23:30 Oxybutynin Chloride (Ditropan) 5 mg BID PO Last administered on 10/14/18 10: 05; Start 10/09/18 at 23:30 Non-Formulary Medication (Sodium Oxybate (Xyrem)) 7 ml HS PO ; Start 10/09/18 at 23:30; Status UNV Methylphenidate HCl (Methylphenidate HCl) 20 mg 0600,1200 PO Last administered on 10/14/18at 13:54; Start 10/10/18 at 06:00 Amoxicillin/ Clavulanate Potassium (Augmentin 500/ 125mg) 1 tab BID PO ; Start 10/14/18 at 21:00 Active Scripts Active Reported Trazodone Hcl 50 Mg Tablet 50 Mg PO PRN QHS PRN Trazodone Hcl 50 Mg Tablet 50 Mg PO QHS Venlafaxine Hcl Er (Venlafaxine Hcl) 225 Mg Tab.er.24 225 Mg PO DAILY Analgesic [place] (Methyl Salicylate/Menthol) 28 Gm Oint...g. 1 Gm TP PRN QID PRN Milk Of Magnesia (Magnesium Hydroxide) 2,400 Mg/10 Ml Oral.susp 2,400 Mg PO PRN QHS PRN Mag-Al Plus Suspension (Mag Hydrox/Al Hydrox/Simeth) 30 Ml Oral.susp 15 Ml PO PRN AFTMEALHC PRN Depakote Er (Divalproex Sodium) 250 Mg Tab.er.24h 250 Mg PO DAILY D3-50 (Cholecalciferol (Vitamin D3)) 50,000 Unit Capsule 50,000 Unit PO QTH Benzonatate 100 Mg Capsule 100 Mg PO [id number] Adderall 20 Mg Tablet (Dextroamphetamine/Amphetamine) 20 Mg Tablet 20 Mg PO 0600 , 1200 Tylenol (Acetaminophen) 325 Mg Tablet 650 Mg PO PRN Q4HRS PRN Loperamide (Loperamide Hcl) 2 Mg Capsule 2 Mg PO PRN QID PRN Colace (Docusate Sodium) 100 Mg Capsule 100 Mg PO PRN DAILY PRN Xyrem (Sodium Oxybate) 500 Mg/1 Ml Solution 7 Ml PO HS Ventolin Hfa Inhaler (Albuterol Sulfate) 18 Gm Hfa.aer.ad 2 Puff IH BID Thera-M (Multivits,Th W-Fe,Other Min) 1 Each Tablet 1 Tab PO DAILY Restasis (Cyclosporine) 1 Each Droperette 1 Drop EACHEYE BID Protonix (Pantoprazole Sodium) 20 Mg Tablet.dr 40 Mg PO DAILY Ditropan Xl (Oxybutynin Chloride) 10 Mg Tab.er.24 10 Mg PO DAILY Levothyroxine Sodium 100 Mcg Tablet 100 Mcg PO DAILY06 Cetirizine Hcl 10 Mg Tablet 5 Mg PO HS Atorvastatin Calcium 20 Mg Tablet 20 Mg PO QHS Aspirin 81 Mg Tab.chew 81 Mg PO DAILYWBKFT Depakote Er (Divalproex Sodium) 500 Mg Tab.er.24h 500 Mg PO QHS Zinc Oxide 57 Gm Oint...g. 1 Mike TP PRN BID PRN Voltaren (Diclofenac Sodium) 100 Gm Gel..gram. 1 Mike TP TID Ventolin Hfa Inhaler (Albuterol Sulfate) 18 Gm Hfa.aer.ad 2 Puff IH PRN Q4HRS PRN Tramadol Hcl (Tramadol HCl) 50 Mg Tablet 50 Mg PO PRN Q6HRS PRN Ondansetron Odt (Ondansetron) 4 Mg Tab.rapdis 4 Mg PO PRN Q6HRS PRN Nitrostat (Nitroglycerin) 0.4 Mg Tab.subl 0.4 Mg SL PRN Q5MIN PRN Mucinex (Guaifenesin) 600 Mg Tablet.er 600 Mg PO PRN BID PRN I have reviewed the current psychotropics carefully including drug interactions. Risk benefit ratio favors no change other than as noted in my dictated progress note. Diagnosis: Problems: (1) Major depressive disorder, recurrent episode (2) Impulse control disorder (3) Anxiety disorder ANABELL MCDONALD MD Oct 14, 2018 19:56
[2018-10-14 20:10] VITALS: BP 135/80
[2018-10-14] MEDS: SODIUM OXYBATE PO SCH (20:53)
[2018-10-14] MEDS: AMOXICILLIN/K CLAV 500/125MG TABLET. PO SCH (20:53)
[2018-10-14] MEDS: ATORVASTATIN CALCIUM 20 MG TABLET PO SCH (20:53)
[2018-10-14] MEDS: DIVALPROEX ER 500 MG TAB.ER.24H PO SCH (20:54)
[2018-10-14] MEDS: traZODone 50 MG TABLET. PO SCH (20:54)
[2018-10-14] MEDS: CETIRIZINE HCL 10 MG TABLET PO SCH (20:54)
[2018-10-14 23:12] VITALS: BP 133/76
[2018-10-15] MEDS: LEVOTHYROXINE 100 MCG TABLET PO SCH (05:51)
[2018-10-15] MEDS: METHYLPHENIDATE HCL 5 MG TABLET PO SCH ×2 (05:51→13:28)
[2018-10-15 05:58] VITALS: BP 118/83
[2018-10-15 06:35] LABS: HEMOGLOBIN 12.5 g/dL (12.0-15.5); RED BLOOD COUNT 4.26 x10^6/uL (3.50-5.40); RED CELL DISTRIBUTION WIDTH 16.3 % (11.5-14.5); WHITE BLOOD COUNT 9.3 x10^3/uL (4.0-11.0)
[2018-10-15 06:41] LABS: CREATININE 0.9 mg/dL (0.6-1.0); GFR 59.8; POTASSIUM 3.8 mmol/L (3.5-5.1)
[2018-10-15] MEDS: LACTOBACILLUS RHAMNOSUS GG 1 CAPSULE. PO SCH (09:12)
[2018-10-15] MEDS: AMOXICILLIN/K CLAV 500/125MG TABLET. PO SCH (09:12)
[2018-10-15] MEDS: BENZONATATE 100 MG CAPSULE. PO SCH ×2 (09:13→13:28)
[2018-10-15] MEDS: VENLAFAXINE 75 MG TABLET. PO SCH ×2 (09:13→13:27)
[2018-10-15] MEDS: MULTIVITAMIN with MINERAL TABLET. PO SCH (09:13)
[2018-10-15] MEDS: cycloSPORINE 0.05% OPTH 1 DROP DROPERETTE OU SCH (09:13)
[2018-10-15] MEDS: OXYBUTYNIN CHLORIDE 5 MG TABLET PO SCH (09:13)
[2018-10-15] MEDS: DICLOFENAC SODIUM 1% TOPICAL GEL 100GM TUBE. TP SCH ×2 (09:13→13:27)
[2018-10-15] MEDS: DIVALPROEX ER 250 MG TAB.ER.24H. PO SCH (09:13)
[2018-10-15] MEDS: PANTOPRAZOLE 40 MG TABLET. PO SCH (09:13)
[2018-10-15] MEDS: ASPIRIN 81 MG TAB.CHEW PO SCH (09:13)
[2018-10-15] MEDS: traMADol 50 MG TABLET PO PRN (09:15)
[2018-10-15] MEDS: ALBUTEROL SULFATE 2.5 MG/3 ML NEBU. NEB SCH (09:43)
[2018-10-15 10:53] VITALS: BP 128/71
--- NOTE | 2018-10-15 14:19 | DS ---
DATE OF DISCHARGE: 10/15/2018 HOSPITAL COURSE: The patient is an 82-year-old female patient who was basically transferred from [facility] where she was noted to have recurrent bouts of cough with yellowish-greenish sputum. Her chest x-ray showed that she has infiltrates in both sides suggestive of pneumonia and therefore, the patient was transferred to [facility] for inpatient treatment of healthcare-associated pneumonia. The patient herself is very demented, does not really give any useful information and does not show any behavioral disturbances while at [facility]. We initiated that and treated her with IV vancomycin and Zosyn. Her blood cultures remained negative and therefore we discontinued her vancomycin, continue the Zosyn and eventually switched her to oral Augmentin and she did well. She continued to have episodes of cough with mild wheezing for which she continued to be on her inhalers and she remained hemodynamically stable and afebrile. A decision [facility] She in fact came from [facility]. PHYSICAL EXAMINATION: GENERAL: When I examined her today, she looked well and was clearly in no apparent respiratory distress, slightly pale, no jaundice, cyanosis, or thyromegaly. No jugular venous distension. No limb edema. VITAL SIGNS: Her heart rate was 64, blood pressure was 128/71, temperature was 98.3, respiratory rate 20, and oxygen saturation was 96%. HEAD, EYES, EARS, NOSE AND THROAT: Normocephalic, atraumatic. NECK: Supple. HEART: Showed normal first and second heart sounds. No gallop, rub or murmur. CHEST: Showed central trachea, equally reduced expansion, reduced air entry, vesicular sounds, very few scattered rhonchi, could not appreciate any crepitation. ABDOMEN: Distended, soft, nontender. NEUROLOGIC: She is awake, alert, responding appropriately. Her cranial nerves are intact. She moves extremities without difficulty. She ambulates with a walker. Her intake over the last 24 hours was 1300, no output was recorded. LABORATORY DATA: Her lab work this morning showed a white cell count 9300, hemoglobin 12.5, hematocrit 38, MCV 89 and platelet count of 234,000. Her chemistry showed a serum sodium of 142, potassium 3.8, chloride 107, bicarbonate 29, anion gap of 7, BUN 16, creatinine 0.9, estimated GFR was 60 mL per minute. Her glucose 77, calcium was 8.9. Her total protein was 5.6, albumin 2.4. Her nasal screen for MRSA by PCR was negative. DISCHARGE MEDICATIONS: She was discharged to [facility] to continue on vitamin D 50,000 international unit once a week, every , Augmentin 500/125 one tablet twice a day with food for 7 more days, venlafaxine 75 mg 3 times a day, multivitamin with calcium one tablet once a day, divalproex 250 mg once a day, diclofenac gel one application 3 times a day, cyclosporine for Restasis one drop to both eyes twice a day, lactobacillus rhamnosus for Culturelle one capsule twice a day, albuterol sulfate 2.5 mg twice a day, aspirin 81 mg once a day, Protonix 40 mg once a day. She should be on Adderall 20 mg once a day, levothyroxine 100 mcg once a day, trazodone 50 mg at bedtime and 50 mg as needed, oxybutynin 5 mg twice a day, cetirizine 5 mg at bedtime, benzonatate for Tessalon Perles 100 mg 3 times a day, atorvastatin calcium 20 mg at bedtime, albuterol sulfate 2.5 mg 3 mL by nebulizer every 4 hours as needed, sodium oxybate 7 mL at bedtime, ondansetron 4 mg p.o. every 4 hours as needed, magnesium hydroxide 30 mL p.o. daily p.r.n. for constipation, Mylanta 15 mL every 4 hours, loperamide 2 mg 4 times a day as needed, Colace 100 mg twice a day, divalproex 500 mg at bedtime and tramadol 50 mg every 6 hours, nitroglycerin 0.4 mg sublingually every 5 minutes and Tylenol 650 mg every 4 hours as needed for pain or fever. FINAL DISCHARGE DIAGNOSES: A. Healthcare-associated pneumonia for which the patient has continued to be on oral antibiotic in the form of Augmentin. She has multiple other medical problems including narcolepsy and cataplexy. B. Hypothyroidism. C. Osteoarthritis and osteoporosis. D. Hyperlipidemia. E. Hypertension. F. Vitamin D deficiency. G. Cognitive. HIREN CAN MD DR: DEL/kamini JOB#: [id number] / [id number]
[2018-10-15 15:41] VITALS: BP 153/79
--- NOTE | 2018-10-16 02:56 | PN ---
DATE: 10/14/2018 This late entry, 10/14/2018, covers elements not covered in my initial note. SUBJECTIVE: I met with the patient in the evening in room 109. Per nursing report, she has been awake and alert during the day, cooperative. She states she is still tired, but stays awake during the day and complained of some back pain. Nursing staff have administered her medications with Dr. Castillo to help with this. REVIEW OF SYSTEMS: Ambulation impaired. Still some coughing is evident, but no CV, GI, , eye system symptoms on review. MENTAL STATUS EXAM: Oriented to herself and situation. Speech has some latency, low in volume, coherent, abstraction fair, computation impaired, language function intact. Mood and affect still withdrawn, but improved. LABORATORY DATA: Reviewed. IMPRESSION: Major depressive disorder with psychotic features; cognitive disorder, unspecified. Rest unchanged. Status post pneumonia. PLAN: No change from initial note. MAN Bridger MCDONALD MD DR: MANNIE/kamini JOB#: [id number] / [id number]
[2018-10-16] MEDS ORDERED: CHOLECALCIFEROL (VITAMIN D3) 50,000 UNIT CAPSULE PO SCH (16:00)
== END 2018-10-15 17:00 | disposition home health service (06) | DRG 193 ==
LOC: 1 SOUTH 19:31
PROVIDERS: ADMIT Internal Medicine; ATTEND Internal Medicine
DX: J18.9 Pneumonia, unspecified organism (principal); E43 Unspecified severe protein-calorie malnutrition; F33.3 Major depressive disorder, recurrent, severe with psychotic symptoms; E03.9 Hypothyroidism, unspecified; F03.90 Unspecified dementia, unspecified severity, without behavioral disturbance, psychotic disturbance, mood disturbance, and anxiety; F09 Unspecified mental disorder due to known physiological condition; E78.5 Hyperlipidemia, unspecified; I10 Essential (primary) hypertension; M19.90 Unspecified osteoarthritis, unspecified site; M81.0 Age-related osteoporosis without current pathological fracture; Y95 Nosocomial condition; E55.9 Vitamin D deficiency, unspecified; F41.9 Anxiety disorder, unspecified; F63.9 Impulse disorder, unspecified; G47.411 Narcolepsy with cataplexy; Z68.32 Body mass index [BMI] 32.0-32.9, adult; Z87.01 Personal history of pneumonia (recurrent); Z79.899 Other long term (current) drug therapy
CPT/HCPCS: 36415; 80048; 80053; 80202; 83605; 85025; 85027; 87040; 87641; 94640; J2543; J3370; J7040; J7050; J7613; 97110; 97116; 97530